=== PATIENT | male | born 1990 | race African-American/Black ===

== ENCOUNTER 2021-04-20 01:15 | Inpatient (IN) | payer OTHER ==
[~2021-04-20] VITALS: Ht 170.2 cm; Wt 98.0 kg
[2021-04-20] VITALS (39 sets, daily range): BP systolic 59–137; BP diastolic 40–80
--- NOTE | 2021-04-20 02:07 | NUR ---
admit from [facility]... patient found down at [facility] for an unknown amount of time on cold floor. Narcan given. patient became agitated for EMS- versed given.. blood gas done in ER- see results- replacing bicarb. one arm and leg are shackled- kerlex wrap applied then shackles over it. Yvette
--- NOTE | 2021-04-20 02:32 | NUR ---
admit from [facility]. patient found down on cold floor at custodial center. EMS called narcan given, thenb versed due to patient becoming aggressive. transferred to [facility]. see labs.. bicarb given and transferred to [place]. upon arrival patient still unresponsive, moving all over bed. one arm and leg wrapped in kerlex are shackled to bed. guards at BS. Dr Vicente called at and 229. no answer-- for admit orders. Addendum: 04/20/21 at 237 by BHARATH ROBLEDO RN unable to complete admission. patient is unresponsive Addendum: 04/20/21 at 0541 by BHARATH ROBLEDO RN cont to call Dr Vicente q 30 mins for orders. At 529 Was able to speak and receive orders updated Dr Vicente on Patients condition. his rapid breathing and unresponsive.
[2021-04-20] MEDS ORDERED: SODIUM BICARBONATE VIAL 100 MEQ in IV DEXTROSE 5% 1,000 ML IV SCH (03:30)
[2021-04-20] MEDS ORDERED: IV NORMAL SALINE 1000ML BAG 1,000 ML IV ONE ×2 (05:45→09:00)
[2021-04-20] MEDS: SODIUM BICARBONATE VIAL 150 MEQ in IV DEXTROSE 5% 1,000 ML IV SCH ×7 (06:02→22:54)
[2021-04-20 06:21] LABS: BASE EXCESS ABG -15 mmol/L (-3-3); CORRECTED PH ABG 7.42; CORRECTED PO2 ABG 126 mmHg; HCO3 ABG 6 mmol/L (21-28); SAT O2 ABG 98 % (92-99)
[2021-04-20 06:22] LABS: CORRECTED PCO2 ABG < 10 mmHg
[2021-04-20 06:23] LABS: FIO2 ABG 32; PCO2 ABG 10 mmHg (35-46); PO2 ABG 134 mmHg (85-108)
[2021-04-20 07:30] LABS: HEMATOCRIT 41.9 % (39.0-53.0); HEMOGLOBIN 13.3 g/dL (13.0-17.5); RED BLOOD COUNT 4.54 x10^6/uL (4.30-5.70); WHITE BLOOD COUNT 16.8 x10^3/uL (4.0-11.0)
[2021-04-20 07:44] LABS: CALCIUM 8.7 mg/dL (8.5-10.1); GFR 29.7
[2021-04-20] MEDS ORDERED: SODIUM BICARB ADULT 8.4% 50 MEQ/50 ML DISP.SYRIN. ONE (07:47)
[2021-04-20] MEDS ORDERED: ETOMIDATE 20 MG/10 ML VIAL. IV ONE ×3 (07:49→08:00)
[2021-04-20] MEDS ORDERED: ROCURONIUM 50 MG/5 ML VIAL. ONE ×2 (07:49→08:00)
[2021-04-20 07:51] LABS: POTASSIUM 6.3 mmol/L (3.5-5.1)
[2021-04-20] MEDS ORDERED: ATROPINE 0.5 MG/5 ML DISP.SYRINGE. IV PRN (08:00)
[2021-04-20] MEDS ORDERED: POLYVINYL ALCOHOL 1.4% OPHTH SOLUTION 15ML BOTTLE. OU PRN (08:00)
[2021-04-20] MEDS ORDERED: SODIUM BICARB ADULT 8.4% 50 MEQ/50 ML DISP.SYRIN. IV ONE ×2 (08:00→15:15)
[2021-04-20] MEDS ORDERED: IV NORMAL SALINE 500ML BAG 500 ML IV PRN (08:00)
[2021-04-20] MEDS ORDERED: PROPOFOL 100 ML IV PRN (08:00)
[2021-04-20] MEDS ORDERED: MIDAZOLAM HCL/PF 5 MG/5 ML VIAL. IVP PRN (08:00)
[2021-04-20] MEDS ORDERED: DEXTROSE 50% 25 GM / 50ML DISP.SYRIN. IV ONE ×2 (08:07→08:15)
[2021-04-20] MEDS: NOREPINEPHRINE VIAL 8 MG in IV DEXTROSE 5% 250 ML IV PRN ×3 (08:27→18:06)
--- NOTE | 2021-04-20 08:43 | PDOC2 ---
NEUROLOGY CONSULT Date of Service DOS: DATE: 04/20/21 TIME: 08:35 Reason for Consult Reason for Consult: Altered mental status Referring Physician Referring Physician: Dr. Franz Source Source: Chart review (Including group home medical record) History of Present Illness History of Present Illness The patient is a 30-year-old male inmate from [facility] who is in the custody of [employer]. He came to the [facility] emergency department last night with altered mental status. Reportedly he used drugs twice earlier, guard suspect this was K2. He was found down, very agitated, with altered state of consciousness. He was given Versed and Narcan with no change. In the emergency department he was hyperventilating and tachycardic. EKG showed atrial fibrillation. He was found to have metabolic acidosis, hypothermia, acute renal failure, lactic acidosis, and elevated INR. He was transferred here and remains agitated and unresponsive. He is about to be intubated. Past Medical History Pulmonary: Asthma Musculoskeletal: Osteoarthritis, Other (Mandible fracture) Past Surgical History Past Surgical History: No pertinent history Family History Family History: Other (Unobtainable) Social History Social History Prisoner Current Medications Current Medications Current Medications Sodium Bicarbonate 100 meq/Dextrose 1,100 ml @ 60 mls/hr [id number] IV ; Start 04/20/21 at 03:30; Stop 04/20/21 at 05:54; Status DC Diltiazem HCl 125 mg/Sodium Chloride 125 ml @ 5 mls/hr CONT PRN IV PER PROTOCOL; Start 04/20/21 at 03:30 Sodium Chloride 1,000 ml @ 1,000 mls/hr 1X ONCE IV Last administered on 04/20/21at 05:45; Start 04/20/21 at 05:45; Stop 04/20/21 at 06:44; Status DC Sodium Bicarbonate 150 meq/Dextrose 1,150 ml @ 125 mls/hr [id number] IV Last administered on 04/20/21at 06:02; Start 04/20/21 at 06:00 Sodium Bicarbonate (Sodium Bicarb Adult 8.4% Syr) 50 meq STK-MED ONCE .ROUTE ; Start 04/20/21 at 07:47; Stop 04/20/21 at 07:47; Status DC Rocuronium [place] (Zemuron) 50 mg STK-MED ONCE .ROUTE ; Start 04/20/21 at 07:49; Stop 04/20/21 at 07:49; Status DC Sodium Bicarbonate (Sodium Bicarb Adult 8.4% Syr) 100 meq 1X ONCE IV Last administered on 04/20/21at 08:09; Start 04/20/21 at 08:00; Stop 04/20/21 at 08:01; Status DC Etomidate (Amidate) 20 mg STK-MED ONCE IV ; Start 04/20/21 at 07:49; Stop 04/20/21 at 07:50; Status DC Etomidate (Amidate) 20 mg STK-MED ONCE IV ; Start 04/20/21 at 07:54; Stop 04/20/21 at 07:54; Status DC Fentanyl Citrate 30 ml @ 2.5 mls/hr CONT PRN IV SEE PROTOCOL; Start 04/20/21 at 08:00 Midazolam HCl 100 ml @ 1 mls/hr CONT PRN IV SEE PROTOCOL; Start 04/20/21 at 08:00 Propofol 100 ml @ 2.865 mls/ hr CONT PRN IV PER PROTOCOL; Start 04/20/21 at 08:00 Glycerin/ Hypromellose/ Polyethylene (Artificial Tears) 1 drop PRN Q1HR PRN OU DRY EYE; Start 04/20/21 at 08:00 Midazolam HCl (Versed) 5 mg PRN 1X PRN IVP VENT INDUCTION; Start 04/20/21 at 08:00; Stop 04/21/21 at 07:59 Sodium Chloride 500 ml @ 500 mls/hr 1X PRN PRN IV SEE COMMENTS; Start 04/20/21 at 08:00 Atropine Sulfate (ATROPINE 0.5mg SYRINGE) 0.5 mg PRN Q5MIN PRN IV SEE COMMENTS; Start 04/20/21 at 08:00 Norepinephrine Bitartrate 8 mg/ Dextrose 258 ml @ 18.479 mls/ hr CONT PRN IV PER PROTOCOL Last administered on 04/20/21at 08:27; Start 04/20/21 at 08:00 Dextrose (Dextrose 50%-Water Syringe) 25 gm 1X ONCE IV Last administered on 04/20/21at 08:09; Start 04/20/21 at 08:15; Stop 04/20/21 at 08:16; Status DC Dextrose (Dextrose 50%-Water Syringe) 25 gm STK-MED ONCE IV ; Start 04/20/21 at 08:07; Stop 04/20/21 at 08:08; Status DC Allergies Allergies: Coded Allergies: No Known Drug Allergies (Unverified , 04/20/21) ROS Review of System Unobtainable Physical Exam Physical Examination General: Well-developed, well-nourished, black male, in respiratory distress HEENT: Normocephalic andatraumatic. Temporal arteriespulsatile and nontender. Neck: Supple without bruit, no meningismus Musculoskeletal: Stability:see neurologic. Gait exam:see neurologic. Tone:see neurologic.Strength:see neurologic. Neurological: Mental Status:Unresponsive to voice or pain, agitated. Cranial Nerves:Pupils dilated, minimal reactivity, extraocular movements areintact. There is no facial asymmetry. All other cranial related problems are negative except as mentioned before.Reflexes:2+ and symmetric with flexor plantar responses. Motor:Moves all extremities. Coordination and gait:Not cooperative. Sensory:Not cooperative. Vitals VITALS Vital Signs Date Time Temp Pulse Resp B/P (MAP) Pulse Ox O2 Delivery O2 Flow Rate FiO2 04/20/21 06:00 96.1 106 30 88/50 95 Nasal Cannula 3.0 96.1 Labs Labs Laboratory Tests Test 04/20/21 05:55 04/20/21 06:00 04/20/21 08:33 White Blood Count 16.8 x10^3/uL (4.0-11.0) Red Blood Count 4.54 x10^6/uL (4.30-5.70) Hemoglobin 13.3 g/dL (13.0-17.5) Hematocrit 41.9 % (39.0-53.0) Mean Corpuscular Volume 92 fL (79-100) Mean Corpuscular Hemoglobin 29 pg (25-35) Mean Corpuscular Hemoglobin Concent 32 g/dL (31-37) Red Cell Distribution Width 15.0 % (11.5-14.5) Platelet Count 197 x10^3/uL (140-400) Sodium Level 141 mmol/L (136-145) Potassium Level 6.3 mmol/L (3.5-5.1) Chloride Level 102 mmol/L (98-107) Carbon Dioxide Level 6 mmol/L (21-32) Anion Gap 33 (6-14) Blood Urea Nitrogen 28 mg/dL (8-26) Creatinine 3.0 mg/dL (0.7-1.3) Estimated GFR (Cockcroft-Gault) 29.7 Glucose Level 50 mg/dL (70-99) Calcium Level 8.7 mg/dL (8.5-10.1) O2 Saturation 98 % (92-99) Arterial Blood pH 7.41 (7.35-7.45) Arterial Blood pH (Temp corrected) 7.42 Arterial Blood pCO2 at Patient Temp 10 mmHg (35-46) Arterial Blood pCO2 (Temp correct) < 10 mmHg Arterial Blood pO2 at Patient Temp 134 mmHg (85-108) Arterial Blood pO2 (Temp corrected) 126 mmHg Arterial Blood HCO3 6 mmol/L (21-28) Arterial Blood Base Excess -15 mmol/L (-3-3) FiO2 32 Glucose (Fingerstick) 111 mg/dL (70-99) Laboratory Tests Test 04/20/21 05:55 04/20/21 06:00 04/20/21 08:33 White Blood Count 16.8 x10^3/uL (4.0-11.0) Red Blood Count 4.54 x10^6/uL (4.30-5.70) Hemoglobin 13.3 g/dL (13.0-17.5) Hematocrit 41.9 % (39.0-53.0) Mean Corpuscular Volume 92 fL (79-100) Mean Corpuscular Hemoglobin 29 pg (25-35) Mean Corpuscular Hemoglobin Concent 32 g/dL (31-37) Red Cell Distribution Width 15.0 % (11.5-14.5) Platelet Count 197 x10^3/uL (140-400) Sodium Level 141 mmol/L (136-145) Potassium Level 6.3 mmol/L (3.5-5.1) Chloride Level 102 mmol/L (98-107) Carbon Dioxide Level 6 mmol/L (21-32) Anion Gap 33 (6-14) Blood Urea Nitrogen 28 mg/dL (8-26) Creatinine 3.0 mg/dL (0.7-1.3) Estimated GFR (Cockcroft-Gault) 29.7 Glucose Level 50 mg/dL (70-99) Calcium Level 8.7 mg/dL (8.5-10.1) O2 Saturation 98 % (92-99) Arterial Blood pH 7.41 (7.35-7.45) Arterial Blood pH (Temp corrected) 7.42 Arterial Blood pCO2 at Patient Temp 10 mmHg (35-46) Arterial Blood pCO2 (Temp correct) < 10 mmHg Arterial Blood pO2 at Patient Temp 134 mmHg (85-108) Arterial Blood pO2 (Temp corrected) 126 mmHg Arterial Blood HCO3 6 mmol/L (21-28) Arterial Blood Base Excess -15 mmol/L (-3-3) FiO2 32 Glucose (Fingerstick) 111 mg/dL (70-99) Images Images [facility], last night: CT HEAD INDICATION: found down at [facility], Alter Mental Status COMPARISON: None Available. Exposure: One or more of the following individualized dose reduction techniques were utilized for this examination: 1. Automated exposure control 2. Adjustment of the mA and/or kV according to patient size 3. Use of iterative reconstruction technique TECHNIQUE: 5 mm contiguous axial images were obtained from the skull base to the vertex in both bone and soft tissue algorithm. FINDINGS: Examination limited due to motion artifact. Grossly No evidence of acute intracranial hemorrhage. No extra-axial fluid collections. No mass effect or midline shift. Ventricular size is appropriate. Basal cisterns are patent. No fractures identified.Jhaveri-white differentiation is preserved.Globes and orbits are within normal limits. Paranasal sinuses and mastoid air cells are clear. CT CERVICAL SPINE INDICATION: found down at [facility], Alter Mental Status COMPARISON: None Available. Technique: 2.5 mm contiguous axial images were obtained from the skull base through the cervicothoracic junction in both bone and soft tissue algorithm. Additional sagittal and coronal reconstructions were also performed. FINDINGS: Examination limited due to mild motion artifact. Vertebral body height and alignment are maintained. Cervical lordosis is preserved. The lateral masses of C1 are aligned upon C2. No fractures identified. The bony canal is patent throughout. No significant degenerative changes are identified. The paraspinous soft tissues are unremarkable. Visualized intracranial contents are unremarkable. Lung apices are clear. IMPRESSION: 1. Examination limited due to motion artifact. Grossly no acute intracranial findings. 2. No acute fracture of the cervical spine. Assessment/Plan Assessment/Plan Impression: Toxic encephalopathy, consistent with K2 ingestion. Atrial fibrillation, compensated, metabolic acidosis, hypothermia, acute renal failure, lactic acidosis, and elevated INR Recommendations: Intubation Supportive care Treat medical issues Thank you for letting me help with the patient's care. ELISHA BLANCO MD Apr 20, 2021 08:43
--- NOTE | 2021-04-20 09:01 | RAD ---
Single view of the chest. 04/20/2021 8:31 AM Indication: Reason: Endotracheal and oral gastric tube placement. Comparison: None Findings: There is an endotracheal tube. The tip projects approximately 3 cm above the jeff. There is an enteric tube extending below the diaphragm projecting over the expected region of the breasts s tomach. No pneumothorax, pleural effusion, or focal infiltrate is seen. Heart size is normal. No acut e osseous abnormality is identified. Dilated loops of small bowel are seen in the central abdomen no gross pneumoperitoneum is identified. Some distal bowel gas appears to be present. Bladder catheter appears to be present. IMPRESSION: 1. Endotracheal tube 3 cm above the jeff 2. Enteric tube with tip projecting over the stomach 3. Dilated loops of small bowel central abdomen and pattern possibly relating to an ileus or partial small bowel obstruction. Consider radiographic follow-up as clinically indicated Electronically signed by: Cezar Us MD (04/20/2021 8:58 AM) [id number]
[2021-04-20 09:08] LABS: BASE EXCESS COOX -15 mmol/L (-3-3); HCO3 COOX 13 mmol/L (21-28); METHEMOGLOBIN 0.8 % (0.0-1.9); OXYHEMOGLOBIN 98.2 %; PCO2 COOX 34 mmHg (35-46); PO2 COOX > 503 mmHg (85-108); SAT O2 COOX 99 % (92-99)
[2021-04-20] MEDS: PANTOPRAZOLE SODIUM IV DRIP 80 MG in IV NORMAL SALINE 100ML 100 ML IV SCH ×2 (09:16→17:41)
[2021-04-20] MEDS: MIDAZOLAM 100mg/100ml NS BAG 100 ML IV PRN ×2 (09:17→15:11)
--- NOTE | 2021-04-20 09:30 | NUR ---
rapid titration note - Levophed started at 0825 at .1mcg/kg/min, due to patients declining status, rapid titration was performed, max dosage titrated to was 0.25 mcg/kg/min which stabilized patients BP and remains there. time from between 0825 and 0900.
[2021-04-20 10:18] LABS: BASO % 0 % (0-3); EOS # 0.1 x10^3/uL (0.0-0.7); EOS % 1 % (0-3); HEMATOCRIT 38.7 % (39.0-53.0); HEMOGLOBIN 12.7 g/dL (13.0-17.5); LYMPH % 6 % (24-48); MEAN CORPUSCULAR HEMOGLOBIN 30 pg (25-35); MEAN CORPUSCULAR HGB CONC 33 g/dL (31-37); MEAN CORPUSCULAR VOLUME 91 fL (79-100); MONO # 1.4 x10^3/uL (0.0-1.1); MONO % 9 % (0-9); NEUT % 84 % (31-73); PLATELET COUNT 217 x10^3/uL (140-400); RED BLOOD COUNT 4.27 x10^6/uL (4.30-5.70); RED CELL DISTRIBUTION WIDTH 14.6 % (11.5-14.5); WHITE BLOOD COUNT 15.6 x10^3/uL (4.0-11.0)
--- NOTE | 2021-04-20 10:19 | PDOC2 ---
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 04/20/21 1018: CONSULT Date of Consult Date of Consult DATE: 04/20/21 TIME: 10:12 Reason for Consult Reason for Consult: SBO Referring Physician Referring Physician: Dr Franz Identification/Chief Complaint Chief Complaint AMS Source Source: Caregiver, Chart review History of Present Illness Reason for Visit: Inmate, seen at [facility], [facility], possible drug use(mention of K2) Was found agitated, AMS Intubated, OG in place, bp stable on pressor support Was treated in ER with versed, narcan--significant lab abnormalities, a fib Past Medical History Pulmonary: Asthma Musculoskeletal: Osteoarthritis, Other (Mandible fracture) Past Surgical History Past Surgical History: No pertinent history Family History Family History: Family History Unknown Social History Social History can not obtain Current Medications Current Medications Current Medications Sodium Bicarbonate 100 meq/Dextrose 1,100 ml @ 60 mls/hr [id number] IV ; Start 04/20/21 at 03:30; Stop 04/20/21 at 05:54; Status DC Diltiazem HCl 125 mg/Sodium Chloride 125 ml @ 5 mls/hr CONT PRN IV PER PROTOCOL; Start 04/20/21 at 03:30 Sodium Chloride 1,000 ml @ 1,000 mls/hr 1X ONCE IV Last administered on 04/20/21at 05:45; Start 04/20/21 at 05:45; Stop 04/20/21 at 06:44; Status DC Sodium Bicarbonate 150 meq/Dextrose 1,150 ml @ 125 mls/hr Q9H12M IV Last administered on 04/20/21at 06:02; Start 04/20/21 at 06:00 Sodium Bicarbonate (Sodium Bicarb Adult 8.4% Syr) 50 meq STK-MED ONCE .ROUTE ; Start 04/20/21 at 07:47; Stop 04/20/21 at 07:47; Status DC Rocuronium [place] (Zemuron) 50 mg STK-MED ONCE .ROUTE ; Start 04/20/21 at 07:49; Stop 04/20/21 at 07:49; Status DC Sodium Bicarbonate (Sodium Bicarb Adult 8.4% Syr) 100 meq 1X ONCE IV Last administered on 04/20/21at 08:09; Start 04/20/21 at 08:00; Stop 04/20/21 at 08:01; Status DC Etomidate (Amidate) 20 mg STK-MED ONCE IV ; Start 04/20/21 at 07:49; Stop 04/20/21 at 07:50; Status DC Etomidate (Amidate) 20 mg STK-MED ONCE IV ; Start 04/20/21 at 07:54; Stop 04/20/21 at 07:54; Status DC Fentanyl Citrate 30 ml @ 2.5 mls/hr CONT PRN IV SEE PROTOCOL; Start 04/20/21 at 08:00 Midazolam HCl 100 ml @ 1 mls/hr CONT PRN IV SEE PROTOCOL Last administered on 04/20/21at 09:17; Start 04/20/21 at 08:00 Propofol 100 ml @ 2.865 mls/ hr CONT PRN IV PER PROTOCOL; Start 04/20/21 at 08:00 Glycerin/ Hypromellose/ Polyethylene (Artificial Tears) 1 drop PRN Q1HR PRN OU DRY EYE; Start 04/20/21 at 08:00 Midazolam HCl (Versed) 5 mg PRN 1X PRN IVP VENT INDUCTION; Start 04/20/21 at 08:00; Stop 04/21/21 at 07:59 Sodium Chloride 500 ml @ 500 mls/hr 1X PRN PRN IV SEE COMMENTS; Start 04/20/21 at 08:00 Atropine Sulfate (ATROPINE 0.5mg SYRINGE) 0.5 mg PRN Q5MIN PRN IV SEE COMMENTS; Start 04/20/21 at 08:00 Norepinephrine Bitartrate 8 mg/ Dextrose 258 ml @ 18.479 mls/ hr CONT PRN IV PER PROTOCOL Last administered on 04/20/21at 08:27; Start 04/20/21 at 08:00 Dextrose (Dextrose 50%-Water Syringe) 25 gm 1X ONCE IV Last administered on 04/20/21at 08:09; Start 04/20/21 at 08:15; Stop 04/20/21 at 08:16; Status DC Dextrose (Dextrose 50%-Water Syringe) 25 gm STK-MED ONCE IV ; Start 04/20/21 at 08:07; Stop 04/20/21 at 08:08; Status DC Pantoprazole Sodium 80 mg/ Sodium Chloride 100 ml @ 10 mls/hr Q10H IV Last a dministered on 04/20/21at 09:16; Start 04/20/21 at 09:00 Sodium Chloride 1,000 ml @ 1,000 mls/hr 1X ONCE IV Last administered on 04/20/21at 08:54; Start 04/20/21 at 09:00; Stop 04/20/21 at 09:59; Status DC Allergies Allergies: Coded Allergies: No Known Drug Allergies (Unverified , 04/20/21) ROS Review of System can not obtain Physical Exam General: Other (eyes open on exam) HEENT: Other (og in place) Lungs: Other (mech vent) Heart: Other (tachy) Abdomen: Other (soft, distended ) Extremities: Normal pulses Skin: No breakdown Vitals VITALS Vital Signs Date Time Temp Pulse Resp B/P (MAP) Pulse Ox O2 Delivery O2 Flow Rate FiO2 04/20/21 09:00 98.2 114 18 82/40 100 Ventilator 98.2 04/20/21 08:00 3.0 Labs Labs Laboratory Tests Test 04/20/21 05:55 04/20/21 06:00 04/20/21 08:33 04/20/21 09:00 White Blood Count 16.8 x10^3/uL (4.0-11.0) Red Blood Count 4.54 x10^6/uL (4.30-5.70) Hemoglobin 13.3 g/dL (13.0-17.5) Hematocrit 41.9 % (39.0-53.0) Mean Corpuscular Volume 92 fL (79-100) Mean Corpuscular Hemoglobin 29 pg (25-35) Mean Corpuscular Hemoglobin Concent 32 g/dL (31-37) Red Cell Distribution Width 15.0 % (11.5-14.5) Platelet Count 197 x10^3/uL (140-400) Sodium Level 141 mmol/L (136-145) Potassium Level 6.3 mmol/L (3.5-5.1) Chloride Level 102 mmol/L (98-107) Carbon Dioxide Level 6 mmol/L (21-32) Anion Gap 33 (6-14) Blood Urea Nitrogen 28 mg/dL (8-26) Creatinine 3.0 mg/dL (0.7-1.3) Estimated GFR (Cockcroft-Gault) 29.7 Glucose Level 50 mg/dL (70-99) Calcium Level 8.7 mg/dL (8.5-10.1) O2 Saturation 98 % (92-99) 99 % (92-99) Arterial Blood pH 7.41 (7.35-7.45) 7.19 (7.35-7.45) Arterial Blood pH (Temp corrected) 7.42 Arterial Blood pCO2 at Patient Temp 10 mmHg (35-46) 34 mmHg (35-46) Arterial Blood pCO2 (Temp correct) < 10 mmHg Arterial Blood pO2 at Patient Temp 134 mmHg (85-108) > 503 mmHg (85-108) Arterial Blood pO2 (Temp corrected) 126 mmHg Arterial Blood HCO3 6 mmol/L (21-28) 13 mmol/L (21-28) Arterial Blood Base Excess -15 mmol/L (-3-3) -15 mmol/L (-3-3) FiO2 32 100 Glucose (Fingerstick) 111 mg/dL (70-99) Oxyhemoglobin 98.2 % Methemoglobin 0.8 % (0.0-1.9) Carbon Monoxide, Quantitative 0.2 % (0.0-1.9) Test 04/20/21 10:01 Glucose (Fingerstick) 104 mg/dL (70-99) Laboratory Tests Test 04/20/21 05:55 04/20/21 06:00 04/20/21 08:33 04/20/21 09:00 White Blood Count 16.8 x10^3/uL (4.0-11.0) Red Blood Count 4.54 x10^6/uL (4.30-5.70) Hemoglobin 13.3 g/dL (13.0-17.5) Hematocrit 41.9 % (39.0-53.0) Mean Corpuscular Volume 92 fL (79-100) Mean Corpuscular Hemoglobin 29 pg (25-35) Mean Corpuscular Hemoglobin Concent 32 g/dL (31-37) Red Cell Distribution Width 15.0 % (11.5-14.5) Platelet Count 197 x10^3/uL (140-400) Sodium Level 141 mmol/L (136-145) Potassium Level 6.3 mmol/L (3.5-5.1) Chloride Level 102 mmol/L (98-107) Carbon Dioxide Level 6 mmol/L (21-32) Anion Gap 33 (6-14) Blood Urea Nitrogen 28 mg/dL (8-26) Creatinine 3.0 mg/dL (0.7-1.3) Estimated GFR (Cockcroft-Gault) 29.7 Glucose Level 50 mg/dL (70-99) Calcium Level 8.7 mg/dL (8.5-10.1) O2 Saturation 98 % (92-99) 99 % (92-99) Arterial Blood pH 7.41 (7.35-7.45) 7.19 (7.35-7.45) Arterial Blood pH (Temp corrected) 7.42 Arterial Blood pCO2 at Patient Temp 10 mmHg (35-46) 34 mmHg (35-46) Arterial Blood pCO2 (Temp correct) < 10 mmHg Arterial Blood pO2 at Patient Temp 134 mmHg (85-108) > 503 mmHg (85-108) Arterial Blood pO2 (Temp corrected) 126 mmHg Arterial Blood HCO3 6 mmol/L (21-28) 13 mmol/L (21-28) Arterial Blood Base Excess -15 mmol/L (-3-3) -15 mmol/L (-3-3) FiO2 32 100 Glucose (Fingerstick) 111 mg/dL (70-99) Oxyhemoglobin 98.2 % Methemoglobin 0.8 % (0.0-1.9) Carbon Monoxide, Quantitative 0.2 % (0.0-1.9) Test 04/20/21 10:01 Glucose (Fingerstick) 104 mg/dL (70-99) Assessment/Plan Assessment/Plan encephalopathy renal failure, acute-cr >3 coagulopathy , INR>2 lactic acidosis->20 CT SBO vs ileus--no free air, og in place--no acute surgical indications at this time, medical management FU repeat labs MARCY HENDRICKS MD 04/20/21 1707: CONSULT Assessment/Plan Assessment/Plan Pt seen and examined. Agree with Baljeet Holt's note Pt non responsive, multiple cardioversions abd soft, Nd, NTTP etiology of sepsis unknown, but abd source seems unlikely regardless, pt prohibitive surgical candidate cont supportive care. Thanks for consult! CORIMIGELTAMMIE Whitlock APRN Apr 20, 2021 10:18 MARCY HENDRICKS MD Apr 20, 2021 17:07
[2021-04-20 10:30] LABS: PROTHROMBIN TIME PATIENT 22.4 SEC (11.7-14.0)
[2021-04-20 10:33] LABS: ALBUMIN 3.2 g/dL (3.4-5.0); ALBUMIN/GLOBULIN RATIO 1.4 (1.0-1.7); CALCIUM 7.9 mg/dL (8.5-10.1); CREATININE 3.4 mg/dL (0.7-1.3); GFR 25.7; TOTAL BILIRUBIN 0.7 mg/dL (0.2-1.0); TOTAL PROTEIN 5.5 g/dL (6.4-8.2)
[2021-04-20 10:34] LABS: D-DIMER 0.54 ug/mlFEU (0.00-0.50)
--- NOTE | 2021-04-20 10:57 | PDOC ---
PULMONARY PROGRESS NOTES DATE: 04/20/21 TIME: 10:57 Vitals Vital Signs Date Time Temp Pulse Resp B/P (MAP) Pulse Ox O2 Delivery O2 Flow Rate FiO2 04/20/21 10:17 31 98 Ventilator 04/20/21 09:00 98.2 114 82/40 98.2 04/20/21 08:00 3.0 Labs Laboratory Tests Test 04/20/21 05:55 04/20/21 06:00 04/20/21 08:33 04/20/21 09:00 White Blood Count 16.8 x10^3/uL (4.0-11.0) Red Blood Count 4.54 x10^6/uL (4.30-5.70) Hemoglobin 13.3 g/dL (13.0-17.5) Hematocrit 41.9 % (39.0-53.0) Mean Corpuscular Volume 92 fL (79-100) Mean Corpuscular Hemoglobin 29 pg (25-35) Mean Corpuscular Hemoglobin Concent 32 g/dL (31-37) Red Cell Distribution Width 15.0 % (11.5-14.5) Platelet Count 197 x10^3/uL (140-400) Sodium Level 141 mmol/L (136-145) Potassium Level 6.3 mmol/L (3.5-5.1) Chloride Level 102 mmol/L (98-107) Carbon Dioxide Level 6 mmol/L (21-32) Anion Gap 33 (6-14) Blood Urea Nitrogen 28 mg/dL (8-26) Creatinine 3.0 mg/dL (0.7-1.3) Estimated GFR (Cockcroft-Gault) 29.7 Glucose Level 50 mg/dL (70-99) Calcium Level 8.7 mg/dL (8.5-10.1) O2 Saturation 98 % (92-99) 99 % (92-99) Arterial Blood pH 7.41 (7.35-7.45) 7.19 (7.35-7.45) Arterial Blood pH (Temp corrected) 7.42 Arterial Blood pCO2 at Patient Temp 10 mmHg (35-46) 34 mmHg (35-46) Arterial Blood pCO2 (Temp correct) < 10 mmHg Arterial Blood pO2 at Patient Temp 134 mmHg (85-108) > 503 mmHg (85-108) Arterial Blood pO2 (Temp corrected) 126 mmHg Arterial Blood HCO3 6 mmol/L (21-28) 13 mmol/L (21-28) Arterial Blood Base Excess -15 mmol/L (-3-3) -15 mmol/L (-3-3) FiO2 32 100 Glucose (Fingerstick) 111 mg/dL (70-99) Oxyhemoglobin 98.2 % Methemoglobin 0.8 % (0.0-1.9) Carbon Monoxide, Quantitative 0.2 % (0.0-1.9) Test 04/20/21 09:55 04/20/21 10:01 White Blood Count 15.6 x10^3/uL (4.0-11.0) Red Blood Count 4.27 x10^6/uL (4.30-5.70) Hemoglobin 12.7 g/dL (13.0-17.5) Hematocrit 38.7 % (39.0-53.0) Mean Corpuscular Volume 91 fL (79-100) Mean Corpuscular Hemoglobin 30 pg (25-35) Mean Corpuscular Hemoglobin Concent 33 g/dL (31-37) Red Cell Distribution Width 14.6 % (11.5-14.5) Platelet Count 217 x10^3/uL (140-400) Neutrophils (%) (Auto) 84 % (31-73) Lymphocytes (%) (Auto) 6 % (24-48) Monocytes (%) (Auto) 9 % (0-9) Eosinophils (%) (Auto) 1 % (0-3) Basophils (%) (Auto) 0 % (0-3) Neutrophils # (Auto) 13.0 x10^3/uL (1.8-7.7) Lymphocytes # (Auto) 1.0 x10^3/uL (1.0-4.8) Monocytes # (Auto) 1.4 x10^3/uL (0.0-1.1) Eosinophils # (Auto) 0.1 x10^3/uL (0.0-0.7) Basophils # (Auto) 0.0 x10^3/uL (0.0-0.2) Prothrombin Time 22.4 SEC (11.7-14.0) Prothromb Time International Ratio 2.0 (0.8-1.1) Activated Partial Thromboplast Time 27 SEC (24-38) Fibrinogen 204 mg/dL (200-440) D-Dimer (Farida) 0.54 ug/mlFEU (0.00-0.50) Sodium Level 146 mmol/L (136-145) Potassium Level 6.0 mmol/L (3.5-5.1) Chloride Level 105 mmol/L (98-107) Carbon Dioxide Level 15 mmol/L (21-32) Anion Gap 26 (6-14) Blood Urea Nitrogen 30 mg/dL (8-26) Creatinine 3.4 mg/dL (0.7-1.3) Estimated GFR (Cockcroft-Gault) 25.7 BUN/Creatinine Ratio 9 (6-20) Glucose Level 95 mg/dL (70-99) Calcium Level 7.9 mg/dL (8.5-10.1) Total Bilirubin 0.7 mg/dL (0.2-1.0) Aspartate Amino Transf (AST/SGOT) 170 U/L (15-37) Alanine Aminotransferase (ALT/SGPT) 61 U/L (16-63) Alkaline Phosphatase 51 U/L (46-116) Total Protein 5.5 g/dL (6.4-8.2) Albumin 3.2 g/dL (3.4-5.0) Albumin/Globulin Ratio 1.4 (1.0-1.7) Ethyl Alcohol Level < 10 mg/dL (0-10) Glucose (Fingerstick) 104 mg/dL (70-99) Laboratory Tests Test 04/20/21 05:55 04/20/21 06:00 04/20/21 08:33 04/20/21 09:00 White Blood Count 16.8 x10^3/uL (4.0-11.0) Red Blood Count 4.54 x10^6/uL (4.30-5.70) Hemoglobin 13.3 g/dL (13.0-17.5) Hematocrit 41.9 % (39.0-53.0) Mean Corpuscular Volume 92 fL (79-100) Mean Corpuscular Hemoglobin 29 pg (25-35) Mean Corpuscular Hemoglobin Concent 32 g/dL (31-37) Red Cell Distribution Width 15.0 % (11.5-14.5) Platelet Count 197 x10^3/uL (140-400) Sodium Level 141 mmol/L (136-145) Potassium Level 6.3 mmol/L (3.5-5.1) Chloride Level 102 mmol/L (98-107) Carbon Dioxide Level 6 mmol/L (21-32) Anion Gap 33 (6-14) Blood Urea Nitrogen 28 mg/dL (8-26) Creatinine 3.0 mg/dL (0.7-1.3) Estimated GFR (Cockcroft-Gault) 29.7 Glucose Level 50 mg/dL (70-99) Calcium Level 8.7 mg/dL (8.5-10.1) O2 Saturation 98 % (92-99) 99 % (92-99) Arterial Blood pH 7.41 (7.35-7.45) 7.19 (7.35-7.45) Arterial Blood pH (Temp corrected) 7.42 Arterial Blood pCO2 at Patient Temp 10 mmHg (35-46) 34 mmHg (35-46) Arterial Blood pCO2 (Temp correct) < 10 mmHg Arterial Blood pO2 at Patient Temp 134 mmHg (85-108) > 503 mmHg (85-108) Arterial Blood pO2 (Temp corrected) 126 mmHg Arterial Blood HCO3 6 mmol/L (21-28) 13 mmol/L (21-28) Arterial Blood Base Excess -15 mmol/L (-3-3) -15 mmol/L (-3-3) FiO2 32 100 Glucose (Fingerstick) 111 mg/dL (70-99) Oxyhemoglobin 98.2 % Methemoglobin 0.8 % (0.0-1.9) Carbon Monoxide, Quantitative 0.2 % (0.0-1.9) Test 04/20/21 09:55 04/20/21 10:01 White Blood Count 15.6 x10^3/uL (4.0-11.0) Red Blood Count 4.27 x10^6/uL (4.30-5.70) Hemoglobin 12.7 g/dL (13.0-17.5) Hematocrit 38.7 % (39.0-53.0) Mean Corpuscular Volume 91 fL (79-100) Mean Corpuscular Hemoglobin 30 pg (25-35) Mean Corpuscular Hemoglobin Concent 33 g/dL (31-37) Red Cell Distribution Width 14.6 % (11.5-14.5) Platelet Count 217 x10^3/uL (140-400) Neutrophils (%) (Auto) 84 % (31-73) Lymphocytes (%) (Auto) 6 % (24-48) Monocytes (%) (Auto) 9 % (0-9) Eosinophils (%) (Auto) 1 % (0-3) Basophils (%) (Auto) 0 % (0-3) Neutrophils # (Auto) 13.0 x10^3/uL (1.8-7.7) Lymphocytes # (Auto) 1.0 x10^3/uL (1.0-4.8) Monocytes # (Auto) 1.4 x10^3/uL (0.0-1.1) Eosinophils # (Auto) 0.1 x10^3/uL (0.0-0.7) Basophils # (Auto) 0.0 x10^3/uL (0.0-0.2) Prothrombin Time 22.4 SEC (11.7-14.0) Prothromb Time International Ratio 2.0 (0.8-1.1) Activated Partial Thromboplast Time 27 SEC (24-38) Fibrinogen 204 mg/dL (200-440) D-Dimer (Farida) 0.54 ug/mlFEU (0.00-0.50) Sodium Level 146 mmol/L (136-145) Potassium Level 6.0 mmol/L (3.5-5.1) Chloride Level 105 mmol/L (98-107) Carbon Dioxide Level 15 mmol/L (21-32) Anion Gap 26 (6-14) Blood Urea Nitrogen 30 mg/dL (8-26) Creatinine 3.4 mg/dL (0.7-1.3) Estimated GFR (Cockcroft-Gault) 25.7 BUN/Creatinine Ratio 9 (6-20) Glucose Level 95 mg/dL (70-99) Calcium Level 7.9 mg/dL (8.5-10.1) Total Bilirubin 0.7 mg/dL (0.2-1.0) Aspartate Amino Transf (AST/SGOT) 170 U/L (15-37) Alanine Aminotransferase (ALT/SGPT) 61 U/L (16-63) Alkaline Phosphatase 51 U/L (46-116) Total Protein 5.5 g/dL (6.4-8.2) Albumin 3.2 g/dL (3.4-5.0) Albumin/Globulin Ratio 1.4 (1.0-1.7) Ethyl Alcohol Level < 10 mg/dL (0-10) Glucose (Fingerstick) 104 mg/dL (70-99) Impression . Full note dictated Acute respiratory failure multifactorial Check urine drug screen JA SPEARS MD Apr 20, 2021 10:57
[2021-04-20] MEDS: VECURONIUM BOLUS 10 MG VIAL. IV PRN ×2 (11:07→15:34)
--- NOTE | 2021-04-20 11:26 | CONS ---
DATE OF CONSULTATION: 04/20/2021 ATTENDING PHYSICIAN: Dr. Yusuf. REASON FOR CONSULTATION: The patient is seen in pulmonary consultation at the request of Dr. Yusuf for respiratory failure, mechanical ventilation, management. HISTORY OF PRESENT ILLNESS: The patient is a 30-year-old male that is currently under the custody of [facility] [employer]. He was under their custody. Apparently, he had agitation, altered mental status. It is suspected that he was utilizing K2, which is synthetic marijuana. He was given Narcan and Versed in the Emergency Department. That helped a bit, but not all that much. The patient had an EKG revealing AFib. He had CT neck and head, which revealed no acute findings. The patient has been seen by Dr. Orantes for toxic encephalopathy consistent with K2 ingestion. He has had severe metabolic acidosis, hypothermia, acute renal failure, lactic acidosis. Earlier this morning, he was having difficulty controlling his airway, he was intubated. He is currently intubated. He is on assist control, tidal volume of 500, rate of 20, 5 of PEEP. He is on a bicarbonate drip for severe metabolic acidosis. Nephrology has been consulted. I reviewed his current chest x-ray, which revealed left lower lobe infiltrate with small effusion. I reviewed his labs. His latest arterial blood gas, the patient is oxygenating well. He does have a severe metabolic acidosis, his pH was 7.19, PaCO2 of 34, pO2 of 503, bicarbonate was 13. PAST MEDICAL HISTORY: Documented as asthma and osteoarthritis. PAST SURGICAL HISTORY: No recent major surgeries. FAMILY HISTORY: Unknown. SOCIAL HISTORY: He is currently in [facility]. CURRENT MEDICATIONS: List was reviewed. PHYSICAL EXAMINATION: VITAL SIGNS: Noted. He is hypotensive. He is not in sync with the ventilator. HEENT: Eyes, the sclerae were nonicteric. Orally placed endotracheal tube. CHEST: Full expansion. No subcutaneous emphysema. LUNGS: Adequate flow. CARDIOVASCULAR: Regular rate and rhythm with S1, S2, no S3. ABDOMEN: Soft, slightly distended. EXTREMITIES: No clubbing, cyanosis. Minimal edema. NEUROLOGIC: The patient was sedated. LABORATORY DATA: White count was 15,000, hemoglobin and hematocrit of 12 and 38. Electrolytes were noted to be deranged. Potassium was elevated. BUN was elevated. Creatinine was elevated. AST was elevated. Albumin was low. IMPRESSION: 1. Acute respiratory failure, multifactorial, mainly related to severe metabolic acidosis and renal failure. 2. Metabolic acidosis related to renal failure and toxic ingestion of K2. 3. Severe metabolic acidosis per Nephrology. 4. Toxic encephalopathy. 5. Abnormal x-ray, compatible with left lower lobe infiltrate, possible pneumonia. 6. Acute renal failure. 7. Lactic acidosis. 8. Atrial fibrillation. 9. Protein malnutrition, present upon admission. PLAN: 1. We will increase minute ventilation, p.r.n. Norcuron, continue sodium bicarbonate drip. 2. Follow Nephrology input. 3. Empiric antibiotics. 4. DVT prophylaxis. 5. IV fluids. 6. Cardizem drip for atrial fibrillation. Overall, prognosis is poor, hopefully the patient will improve and survive this unfortunate disaster. CANDELARIA DR: Geovanny TID: [id number]
--- NOTE | 2021-04-20 12:07 | PDOC2 ---
CONSULT Date of Consult Date of Consult DATE: 04/20/21 TIME: 11:59 Reason for Consult Reason for Consult: SERGIO/ ATN Referring Physician Referring Physician: GRACE Identification/Chief Complaint Chief Complaint Abdominal pain nausea vomiting Source Source: Chart review History of Present Illness Reason for Visit: Patient is a 30-year-old [place] inmate in the custody of the [facility]. Apparently had demonstrated some agitation and altered mental status. Reportedly was found down. It is suspected that he was using K2 at the facility. He was taken to [facility] ER where drug screen is reportedly negative. He is now intubated and in the ICU where I am unable to get much in terms of history from him.. Is currently sedated intubated on the vent and on pressors. He is felt to have a small bowel obstruction has been evaluated by GI and general surgery. It is also reported that the patient had an EKG revealing AFib. The patient has been seen by Dr. Orantes for toxic encephalopathy consistent with K2 ingestion. He is now noted to have severe wide anion gap metabolic acidosis with a lactic acid of 10.4. He was initially hypothermic but is now normothermic. He was also noted to have acute renal failure with a creatinine of 3.4 at presentation. Reportedly earlier this morning, he was having difficulty controlling his airway, he was intubated. He appears to be in some amount of respiratory distress with some amount of accessory muscle use for breathing. His potassium is also noted to be 6.3 with a bicarb of 6 and a gap of 33. Post intubation ABG 7.1 8/34/553 with a bicarb of 13. He remains on pressors at this time Past Medical History Pulmonary: Asthma Musculoskeletal: Osteoarthritis, Other (Mandible fracture) Past Surgical History Past Surgical History: No pertinent history Family History Family History: Family History Unknown Social History Social History Currently in the custody of the [facility] Current Medications Current Medications Current Medications Sodium Bicarbonate 100 meq/Dextrose 1,100 ml @ 60 mls/hr [id number] IV ; Start 04/20/21 at 03:30; Stop 04/20/21 at 05:54; Status DC Diltiazem HCl 125 mg/Sodium Chloride 125 ml @ 5 mls/hr CONT PRN IV PER PROTOCOL; Start 04/20/21 at 03:30 Sodium Chloride 1,000 ml @ 1,000 mls/hr 1X ONCE IV Last administered on 04/20/21at 05:45; Start 04/20/21 at 05:45; Stop 04/20/21 at 06:44; Status DC Sodium Bicarbonate 150 meq/Dextrose 1,150 ml @ 125 mls/hr [id number] IV Last administered on 04/20/21at 06:02; Start 04/20/21 at 06:00 Sodium Bicarbonate (Sodium Bicarb Adult 8.4% Syr) 50 meq STK-MED ONCE .ROUTE ; Start 04/20/21 at 07:47; Stop 04/20/21 at 07:47; Status DC Rocuronium [place]trim (Zemuron) 50 mg STK-MED ONCE .ROUTE ; Start 04/20/21 at 07:49; Stop 04/20/21 at 07:49; Status DC Sodium Bicarbonate (Sodium Bicarb Adult 8.4% Syr) 100 meq 1X ONCE IV Last administered on 04/20/21at 08:09; Start 04/20/21 at 08:00; Stop 04/20/21 at 08:01; Status DC Etomidate (Amidate) 20 mg STK-MED ONCE IV ; Start 04/20/21 at 07:49; Stop 04/20/21 at 07:50; Status DC Etomidate (Amidate) 20 mg STK-MED ONCE IV ; Start 04/20/21 at 07:54; Stop 04/20/21 at 07:54; Status DC Fentanyl Citrate 30 ml @ 2.5 mls/hr CONT PRN IV SEE PROTOCOL Last administered on 04/20/21at 10:17; Start 04/20/21 at 08:00 Midazolam HCl 100 ml @ 1 mls/hr CONT PRN IV SEE PROTOCOL Last administered on 04/20/21at 09:17; Start 04/20/21 at 08:00 Propofol 100 ml @ 2.865 mls/ hr CONT PRN IV PER PROTOCOL; Start 04/20/21 at 08:00 Glycerin/ Hypromellose/ Polyethylene (Artificial Tears) 1 drop PRN Q1HR PRN OU DRY EYE; Start 04/20/21 at 08:00 Midazolam HCl (Versed) 5 mg PRN 1X PRN IVP VENT INDUCTION; Start 04/20/21 at 08:00; Stop 04/21/21 at 07:59 Sodium Chloride 500 ml @ 500 mls/hr 1X PRN PRN IV SEE COMMENTS; Start 04/20/21 at 08:00 Atropine Sulfate (ATROPINE 0.5mg SYRINGE) 0.5 mg PRN Q5MIN PRN IV SEE COMMENTS; Start 04/20/21 at 08:00 Norepinephrine Bitartrate 8 mg/ Dextrose 258 ml @ 18.479 mls/ hr CONT PRN IV PER PROTOCOL Last administered on 04/20/21at 08:27; Start 04/20/21 at 08:00 Dextrose (Dextrose 50%-Water Syringe) 25 gm 1X ONCE IV Last administered on 04/20/21at 08:09; Start 04/20/21 at 08:15; Stop 04/20/21 at 08:16; Status DC Dextrose (Dextrose 50%-Water Syringe) 25 gm STK-MED ONCE IV ; Start 04/20/21 at 08:07; Stop 04/20/21 at 08:08; Status DC Pantoprazole Sodium 80 mg/ Sodium Chloride 100 ml @ 10 mls/hr Q10H IV Last administered on 04/20/21at 09:16; Start 04/20/21 at 09:00 Sodium Chloride 1,000 ml @ 1,000 mls/hr 1X ONCE IV Last administered on 04/20/21at 08:54; Start 04/20/21 at 09:00; Stop 04/20/21 at 09:59; Status DC Vecuronium [place]trim (Norcuron Bolus) 6 mg PRN Q6HRS PRN IV VENTILATOR COMPLIANCE Last administered on 04/20/21at 11:07; Start 04/20/21 at 11:00 Allergies Allergies: Coded Allergies: No Known Drug Allergies (Unverified , 04/20/21) ROS Review of System Unable to be obtained from the patient due to sedated intubated state Physical Exam Physical Exam General Appearance: Currently sedated intubated on the ventilator in moderate amount of respiratory distress Eyes: Sclera anicteric conjunctiva Normal EN: No EN Drainage Mucous Memb. Moist while intubated Neck: no JVD no JVP Supple no Thyromegaly CVS: S1 S2 no Murmur No Gallop No Rub no Edema Resp: no Rales no Rhonchi no Acc. Muscle use GI: BS hypoactive NO Bruit Non Tender Non Distended : no CVA tenderness; no Suprapubic Tenderness SKIN: no Rashes Breast Exam deferred, multiple tattoos Mu.Sk: Adequate passive ROM no Muscle Atrophy Heme: Unable to palpate Obvious LAD no palpable splenomegaly NEURO: Unable to assess currently while on the vent and sedated intubated Psych: Unable to assess currently while sedated intubated on the vent Vital Signs Vital Signs Date Time Temp Pulse Resp B/P (MAP) Pulse Ox O2 Delivery O2 Flow Rate FiO2 04/20/21 10:17 31 98 Ventilator 04/20/21 09:00 98.2 114 82/40 98.2 04/20/21 08:00 3.0 Assessment & Plan SERGIO/ATN with minimal urine output and severe acidosis: We will proceed with hemodialysis/CRRT depending on hemodynamics. Hypotension we will begin with CRRT correct acidosis and reevaluate for ongoing need for dialysis. Fluid boluses can be administered Possible septic shock: Unclear source or etiology. Defer to other physicians to ascertain precise etiology. Suspect intra-abdominal source Severe metabolic acidosis with elevated lactic acid: Suspect due to intra- abdominal pathology. Will begin CRRT to correct acidosis. If he is felt to be a surgical candidate CRRT can be discontinued for surgical intervention. Hyperkalemia: Presumably due to severe metabolic acidosis. Anticipate correction with correction of metabolic acidosis. IV bicarb has been administered. IV bicarb has been reordered also pending initiation of CRRT Critical care time spent at bedside as well as coordinating dialysis line placement, CRRT orders, reviewing records from outside facility: 32 minutes 1145 to 12:17 Labs Labs Laboratory Tests Test 04/20/21 05:55 04/20/21 06:00 04/20/21 08:33 04/20/21 09:00 White Blood Count 16.8 x10^3/uL (4.0-11.0) Red Blood Count 4.54 x10^6/uL (4.30-5.70) Hemoglobin 13.3 g/dL (13.0-17.5) Hematocrit 41.9 % (39.0-53.0) Mean Corpuscular Volume 92 fL (79-100) Mean Corpuscular Hemoglobin 29 pg (25-35) Mean Corpuscular Hemoglobin Concent 32 g/dL (31-37) Red Cell Distribution Width 15.0 % (11.5-14.5) Platelet Count 197 x10^3/uL (140-400) Sodium Level 141 mmol/L (136-145) Potassium Level 6.3 mmol/L (3.5-5.1) Chloride Level 102 mmol/L (98-107) Carbon Dioxide Level 6 mmol/L (21-32) Anion Gap 33 (6-14) Blood Urea Nitrogen 28 mg/dL (8-26) Creatinine 3.0 mg/dL (0.7-1.3) Estimated GFR (Cockcroft-Gault) 29.7 Glucose Level 50 mg/dL (70-99) Calcium Level 8.7 mg/dL (8.5-10.1) O2 Saturation 98 % (92-99) 99 % (92-99) Arterial Blood pH 7.41 (7.35-7.45) 7.19 (7.35-7.45) Arterial Blood pH (Temp corrected) 7.42 Arterial Blood pCO2 at Patient Temp 10 mmHg (35-46) 34 mmHg (35-46) Arterial Blood pCO2 (Temp correct) < 10 mmHg Arterial Blood pO2 at Patient Temp 134 mmHg (85-108) > 503 mmHg (85-108) Arterial Blood pO2 (Temp corrected) 126 mmHg Arterial Blood HCO3 6 mmol/L (21-28) 13 mmol/L (21-28) Arterial Blood Base Excess -15 mmol/L (-3-3) -15 mmol/L (-3-3) FiO2 32 100 Glucose (Fingerstick) 111 mg/dL (70-99) Oxyhemoglobin 98.2 % Methemoglobin 0.8 % (0.0-1.9) Carbon Monoxide, Quantitative 0.2 % (0.0-1.9) Test 04/20/21 09:55 04/20/21 10:01 White Blood Count 15.6 x10^3/uL (4.0-11.0) Red Blood Count 4.27 x10^6/uL (4.30-5.70) Hemoglobin 12.7 g/dL (13.0-17.5) Hematocrit 38.7 % (39.0-53.0) Mean Corpuscular Volume 91 fL (79-100) Mean Corpuscular Hemoglobin 30 pg (25-35) Mean Corpuscular Hemoglobin Concent 33 g/dL (31-37) Red Cell Distribution Width 14.6 % (11.5-14.5) Platelet Count 217 x10^3/uL (140-400) Neutrophils (%) (Auto) 84 % (31-73) Lymphocytes (%) (Auto) 6 % (24-48) Monocytes (%) (Auto) 9 % (0-9) Eosinophils (%) (Auto) 1 % (0-3) Basophils (%) (Auto) 0 % (0-3) Neutrophils # (Auto) 13.0 x10^3/uL (1.8-7.7) Lymphocytes # (Auto) 1.0 x10^3/uL (1.0-4.8) Monocytes # (Auto) 1.4 x10^3/uL (0.0-1.1) Eosinophils # (Auto) 0.1 x10^3/uL (0.0-0.7) Basophils # (Auto) 0.0 x10^3/uL (0.0-0.2) Prothrombin Time 22.4 SEC (11.7-14.0) Prothromb Time International Ratio 2.0 (0.8-1.1) Activated Partial Thromboplast Time 27 SEC (24-38) Fibrinogen 204 mg/dL (200-440) D-Dimer (Farida) 0.54 ug/mlFEU (0.00-0.50) Sodium Level 146 mmol/L (136-145) Potassium Level 6.0 mmol/L (3.5-5.1) Chloride Level 105 mmol/L (98-107) Carbon Dioxide Level 15 mmol/L (21-32) Anion Gap 26 (6-14) Blood Urea Nitrogen 30 mg/dL (8-26) Creatinine 3.4 mg/dL (0.7-1.3) Estimated GFR (Cockcroft-Gault) 25.7 BUN/Creatinine Ratio 9 (6-20) Glucose Level 95 mg/dL (70-99) Lactic Acid Level 10.4 mmol/L (0.4-2.0) Calcium Level 7.9 mg/dL (8.5-10.1) Total Bilirubin 0.7 mg/dL (0.2-1.0) Aspartate Amino Transf (AST/SGOT) 170 U/L (15-37) Alanine Aminotransferase (ALT/SGPT) 61 U/L (16-63) Alkaline Phosphatase 51 U/L (46-116) Total Protein 5.5 g/dL (6.4-8.2) Albumin 3.2 g/dL (3.4-5.0) Albumin/Globulin Ratio 1.4 (1.0-1.7) Ethyl Alcohol Level < 10 mg/dL (0-10) Acetone Level Neg (NEG) Glucose (Fingerstick) 104 mg/dL (70-99) Laboratory Tests Test 04/20/21 05:55 04/20/21 06:00 04/20/21 08:33 04/20/21 09:00 White Blood Count 16.8 x10^3/uL (4.0-11.0) Red Blood Count 4.54 x10^6/uL (4.30-5.70) Hemoglobin 13.3 g/dL (13.0-17.5) Hematocrit 41.9 % (39.0-53.0) Mean Corpuscular Volume 92 fL (79-100) Mean Corpuscular Hemoglobin 29 pg (25-35) Mean Corpuscular Hemoglobin Concent 32 g/dL (31-37) Red Cell Distribution Width 15.0 % (11.5-14.5) Platelet Count 197 x10^3/uL (140-400) Sodium Level 141 mmol/L (136-145) Potassium Level 6.3 mmol/L (3.5-5.1) Chloride Level 102 mmol/L (98-107) Carbon Dioxide Level 6 mmol/L (21-32) Anion Gap 33 (6-14) Blood Urea Nitrogen 28 mg/dL (8-26) Creatinine 3.0 mg/dL (0.7-1.3) Estimated GFR (Cockcroft-Gault) 29.7 Glucose Level 50 mg/dL (70-99) Calcium Level 8.7 mg/dL (8.5-10.1) O2 Saturation 98 % (92-99) 99 % (92-99) Arterial Blood pH 7.41 (7.35-7.45) 7.19 (7.35-7.45) Arterial Blood pH (Temp corrected) 7.42 Arterial Blood pCO2 at Patient Temp 10 mmHg (35-46) 34 mmHg (35-46) Arterial Blood pCO2 (Temp correct) < 10 mmHg Arterial Blood pO2 at Patient Temp 134 mmHg (85-108) > 503 mmHg (85-108) Arterial Blood pO2 (Temp corrected) 126 mmHg Arterial Blood HCO3 6 mmol/L (21-28) 13 mmol/L (21-28) Arterial Blood Base Excess -15 mmol/L (-3-3) -15 mmol/L (-3-3) FiO2 32 100 Glucose (Fingerstick) 111 mg/dL (70-99) Oxyhemoglobin 98.2 % Methemoglobin 0.8 % (0.0-1.9) Carbon Monoxide, Quantitative 0.2 % (0.0-1.9) Test 04/20/21 09:55 04/20/21 10:01 White Blood Count 15.6 x10^3/uL (4.0-11.0) Red Blood Count 4.27 x10^6/uL (4.30-5.70) Hemoglobin 12.7 g/dL (13.0-17.5) Hematocrit 38.7 % (39.0-53.0) Mean Corpuscular Volume 91 fL (79-100) Mean Corpuscular Hemoglobin 30 pg (25-35) Mean Corpuscular Hemoglobin Concent 33 g/dL (31-37) Red Cell Distribution Width 14.6 % (11.5-14.5) Platelet Count 217 x10^3/uL (140-400) Neutrophils (%) (Auto) 84 % (31-73) Lymphocytes (%) (Auto) 6 % (24-48) Monocytes (%) (Auto) 9 % (0-9) Eosinophils (%) (Auto) 1 % (0-3) Basophils (%) (Auto) 0 % (0-3) Neutrophils # (Auto) 13.0 x10^3/uL (1.8-7.7) Lymphocytes # (Auto) 1.0 x10^3/uL (1.0-4.8) Monocytes # (Auto) 1.4 x10^3/uL (0.0-1.1) Eosinophils # (Auto) 0.1 x10^3/uL (0.0-0.7) Basophils # (Auto) 0.0 x10^3/uL (0.0-0.2) Prothrombin Time 22.4 SEC (11.7-14.0) Prothromb Time International Ratio 2.0 (0.8-1.1) Activated Partial Thromboplast Time 27 SEC (24-38) Fibrinogen 204 mg/dL (200-440) D-Dimer (Farida) 0.54 ug/mlFEU (0.00-0.50) Sodium Level 146 mmol/L (136-145) Potassium Level 6.0 mmol/L (3.5-5.1) Chloride Level 105 mmol/L (98-107) Carbon Dioxide Level 15 mmol/L (21-32) Anion Gap 26 (6-14) Blood Urea Nitrogen 30 mg/dL (8-26) Creatinine 3.4 mg/dL (0.7-1.3) Estimated GFR (Cockcroft-Gault) 25.7 BUN/Creatinine Ratio 9 (6-20) Glucose Level 95 mg/dL (70-99) Lactic Acid Level 10.4 mmol/L (0.4-2.0) Calcium Level 7.9 mg/dL (8.5-10.1) Total Bilirubin 0.7 mg/dL (0.2-1.0) Aspartate Amino Transf (AST/SGOT) 170 U/L (15-37) Alanine Aminotransferase (ALT/SGPT) 61 U/L (16-63) Alkaline Phosphatase 51 U/L (46-116) Total Protein 5.5 g/dL (6.4-8.2) Albumin 3.2 g/dL (3.4-5.0) Albumin/Globulin Ratio 1.4 (1.0-1.7) Ethyl Alcohol Level < 10 mg/dL (0-10) Acetone Level Neg (NEG) Glucose (Fingerstick) 104 mg/dL (70-99) Review All relevant outside records, renal labs, imaging studies, telemetry/EKG's were reviewed. Images Images Chest x-ray report: IMPRESSION: 1. Endotracheal tube 3 cm above the jeff 2. Enteric tube with tip projecting over the stomach 3. Dilated loops of small bowel central abdomen and pattern possibly relating to an ileus or partial small bowel obstruction. Consider radiographic follow-up as clinically indicated PAUL CASTELLANOS MD Apr 20, 2021 12:07
[2021-04-20 12:10] LABS: % BANDS 13 % (0-9); % LYMPHS 8 % (24-48); % MONOS 7 % (0-10); % SEGS 72 % (35-66); PLT ESTIMATE ADEQUATE (ADEQUATE)
[2021-04-20] MEDS: SODIUM BICARB ADULT 8.4% 50 MEQ/50 ML DISP.SYRIN. IV SCH ×2 (12:40→13:32)
[2021-04-20] MEDS ORDERED: LIDOCAINE WITH 8.4% SOD BICARB 3 ML DISP.SYRIN. ONE (13:02)
[2021-04-20] MEDS ORDERED: LIDOCAINE WITH 8.4% SOD BICARB 3 ML DISP.SYRIN. INJ ONE (13:45)
--- NOTE | 2021-04-20 14:16 | RAD ---
EXAMINATION: Chest radiograph. VIEWS: 2 images single AP view of the chest COMPARISON: Earlier same day INDICATION:30 years, Male, HD and CVC line placement. FINDINGS: Interval placement of right IJ dialysis catheter with tip terminating in the area of the right atrium . Additional central venous line is also seen with the distal tip difficult to evaluate given the ove rlying hemodialysis catheter appears to terminate in the region of the brachiocephalic SVC confluence or SVC. Endotracheal tube and nasogastric supine x-rays of the jeff. Enteric tube extends below th e diaphragm over the expected region of the stomach. Stable cardiomediastinal silhouette. New hazy bibasilar opacities. No pleural effusion or pneumothora x. No acute osseous process. IMPRESSION: 1. Interval placement of right IJ hemodialysis and central venous catheters appear to be in stable po sitions. No postprocedural pneumothorax. 2. Other support tubes and lines are in stable position. 3. New hazy bibasilar opacities favoring subsegmental atelectasis and/or infiltrate. Electronically signed by: Zay Molina DO (04/20/2021 2:13 PM) [facility]
--- NOTE | 2021-04-20 14:50 | RAD ---
Procedure: 1. Ultrasound-guided placement of a right internal jugular temporary dialysis catheter 2. Ultrasound-guided placement of right internal jugular triple-lumen central venous catheter Sterility: All elements of maximal sterile barrier technique including the use of a cap, mask, steril e gown, sterile gloves, large sterile sheet, appropriate hand hygiene, and 2% chlorhexidine for cutan eous antisepsis (or acceptable alternative antiseptic per current guidelines) were followed for this procedure. Consent: The procedures were performed under a medical necessity consent under emergent conditions. Technique and Findings: The patient was prepped and draped in the usual sterile fashion. Ultrasound interrogation of the right neck revealed patency and compressibility of the right internal jugular vein. A 21-gauge micropuncture was then used to gain access to this vein under ultrasound g uidance. A hard copy ultrasound image was recorded.A guidewire was advanced centrally over which, fo llowing dilatation, temporary dialysis catheter was placed. The new catheter was found to flush an d aspirate normally. The catheter was secured in place. Sterile dressings were applied. No immediate complications were identified. Then in a slightly more cephalad location, A 21-gauge micropuncture was then used to gain access to t he right internal jugular vein. A hard copy ultrasound image was recorded.A guidewire was advanced ce ntrally over which, following dilatation, a a triple-lumen central venous catheter was placed. The n ew catheter was found to flush and aspirate normally. The catheter was secured in place. Sterile dres sings were applied. No immediate complications were identified. IMPRESSION: 1. Placement of a right internal jugular triple-lumen central venous catheter with ultrasound guidanc e 2. Placement of a right internal jugular temporary dialysis catheter with ultrasound guidance Electronically signed by: Cezar Us MD (04/20/2021 2:48 PM) [id number]
[2021-04-20] MEDS: CALCIUM CHLORIDE IV SCH ×6 (15:00→20:07)
[2021-04-20] MEDS: [UNRECOGNIZED DRUG - OTHER] IV SCH ×4 (15:00→18:15)
[2021-04-20] MEDS: POTASSIUM CHLORIDE IV SCH ×6 (15:00→20:07)
[2021-04-20] MEDS: MAGNESIUM SULFATE IV SCH ×6 (15:00→20:07)
[2021-04-20] MEDS: fentaNYL HIGH DOSE PCA 55 ML IV PRN (15:09)
[2021-04-20] MEDS: AMIODARONE 450 MG in IV DEXTROSE 5% 250 ML IV PRN (15:45)
[2021-04-20] MEDS ORDERED: DEXTROSE 5% IV ONE (16:00)
[2021-04-20] MEDS ORDERED: AMIODARONE IV ONE (16:00)
[2021-04-20] MEDS ORDERED: ADENOSINE 6 MG/2 ML VIAL. IV ONE ×4 (16:10→16:30)
[2021-04-20] MEDS: NORCURON - VECURONIUM 50 MG in IV NORMAL SALINE 50ML 50 ML IV PRN (16:37)
[2021-04-20 18:12] LABS: HEMOGLOBIN 12.6 g/dL (13.0-17.5); RED BLOOD COUNT 4.13 x10^6/uL (4.30-5.70); RED CELL DISTRIBUTION WIDTH 14.4 % (11.5-14.5); WHITE BLOOD COUNT 9.9 x10^3/uL (4.0-11.0)
--- NOTE | 2021-04-20 18:17 | CARD ---
MR#: [id number] Date of Study: 04/20/2021 Ordering Physician: PAUL CASTELLANOS, Referring Physician: PAUL CASTELLANOS, Tech: Jessica Vasquez [facility] APPROVED REPORT EXAM: Two-dimensional and M-mode echocardiogram with Doppler and color Doppler. Other Information Quality : Technically LimitedHR: 130bpm Rhythm : Tachycardia INDICATION RISK FACTORS Obesity 2D DIMENSIONS Left Atrium(2D)2.3 (1.6-4.0cm)IVSd1.1 (0.7-1.1cm) Aortic Root(2D)3.5 (2.0-3.7cm)LVDd4.3 (3.9-5.9cm) LVOT Diameter2.7 (1.8-2.4cm)PWd1.2 (0.7-1.1cm) LVDs2.2 (2.5-4.0cm)FS (%) 47.8 % SV66.3 ml LEFT VENTRICLE The left ventricle is normal size. There is borderline concentric left ventricular hypertrophy. The l eft ventricular systolic function is normal and the ejection fraction is within normal range. LV eje ction fraction is 60 to 65%. There is normal LV segmental wall motion. RIGHT VENTRICLE The right ventricle is normal size. There is normal right ventricular wall thickness. The right ventr icular systolic function is normal. ATRIA The left atrium size is normal. The right atrium size is normal. The interatrial septum is intact wit h no evidence for an atrial septal defect or patent foramen ovale as noted on 2-D or Doppler imaging. AORTIC VALVE The aortic valve is normal in structure and function. Doppler and Color Flow revealed no significant aortic regurgitation. There is no significant aortic valvular stenosis. MITRAL VALVE The mitral valve is normal in structure and function. There is no evidence of mitral valve prolapse. There is no mitral valve stenosis. Doppler and Color Flow revealed trace mitral valve regurgitation. TRICUSPID VALVE The tricuspid valve is normal in structure and function. Doppler and Color Flow revealed no tricuspid valve regurgitation noted. There is no tricuspid valve stenosis. GREAT VESSELS The aortic root is normal in size. The ascending aorta is normal in size. The IVC is normal in size a nd collapses >50% with inspiration. PERICARDIAL EFFUSION There is no evidence of significant pericardial effusion. Critical Notification Critical Value: No <Conclusion> The left ventricle is normal size. The left ventricular systolic function is normal and the ejection fraction is within normal range. LV ejection fraction is 60 to 65%. There is borderline concentric left ventricular hypertrophy. Doppler and Color Flow revealed no significant aortic regurgitation. There is no significant aortic valvular stenosis. Doppler and Color Flow revealed trace mitral valve regurgitation. Doppler and Color Flow revealed no tricuspid valve regurgitation noted. Signed by : Maykel Taylor MD Electronically Approved : 04/20/2021 18:16:50
[2021-04-20 18:20] LABS: PROTHROMBIN TIME PATIENT 26.2 SEC (11.7-14.0)
[2021-04-20 18:23] LABS: ALBUMIN/GLOBULIN RATIO 1.4 (1.0-1.7); CALCIUM 7.3 mg/dL (8.5-10.1); CREATININE 2.2 mg/dL (0.7-1.3); GFR 42.5; MAGNESIUM 3.8 mg/dL (1.8-2.4); PHOSPHORUS 2.3 mg/dL (2.6-4.7); POTASSIUM 3.7 mmol/L (3.5-5.1); TOTAL BILIRUBIN 0.7 mg/dL (0.2-1.0); TOTAL PROTEIN 5.2 g/dL (6.4-8.2)
[2021-04-20] MEDS ORDERED: HEPARIN 25,000UTS/250ML PREMIX 250 ML IV PRN (19:15)
[2021-04-20] MEDS ORDERED: HEPARIN for IV BOLUS 10,000 UNIT/10 ML VIAL. IV PRN (19:15)
--- NOTE | 2021-04-20 19:33 | PDOC2 ---
CONSULT Date of Consult Date of Consult DATE: 04/20/21 TIME: 19:22 Reason for Consult Reason for Consult: Rapid atrial fibrillation, VT Referring Physician Referring Physician: Dr. Franz Identification/Chief Complaint Chief Complaint The patient was found down at a correctional facility Source Source: Caregiver, Chart review History of Present Illness Reason for Visit: The patient is a 30-year-old male who has been in a correctional institution. He reportedly was found down and minimally responsive last evening and brought to [facility]. The patient had not been able to give a clear history but that was consideration the possible use of K2. The patient was then tr ansferred to [facility]. Earlier this morning the patient had progressive deterioration and required intubation. He also required pressor support. He was found to be in acute renal failure as well as possibly having a possible small bowel obstruction. He has been seen by the renal service and placed on CRRT. He is also been seen by the GI/surgery services for possible small bowel obstruction. Later in the the afternoon the patient has had recurrent episodes of a series of rapid rhythms with severe decrease in blood pressure. 1 rhythm appears to be VT while others were a narrow complex extreme tachycardia. He has received a total of 6 cardioversions to this time. He has been placed on amiodarone and appears to be improving on antiarrhythmics as well as his renal treatment. He is followed by the pulmonary, renal, GI and neurological services. Limited old history is available. Past Medical History Pulmonary: Asthma Musculoskeletal: Osteoarthritis, Other (Mandible fracture) Past Surgical History Past Surgical History: No pertinent history Family History Family History: Family History Unknown Current Medications Current Medications Current Medications Sodium Bicarbonate 100 meq/Dextrose 1,100 ml @ 60 mls/hr [id number] IV ; Start 04/20/21 at 03:30; Stop 04/20/21 at 05:54; Status DC Diltiazem HCl 125 mg/Sodium Chloride 125 ml @ 5 mls/hr CONT PRN IV PER PROTOCOL; Start 04/20/21 at 03:30 Sodium Chloride 1,000 ml @ 1,000 mls/hr 1X ONCE IV Last administered on 04/20/21at 05:45; Start 04/20/21 at 05:45; Stop 04/20/21 at 06:44; Status DC Sodium Bicarbonate 150 meq/Dextrose 1,150 ml @ 125 mls/hr Q9H12M IV Last administered on 04/20/21at 15:07; Start 04/20/21 at 06:00 Sodium Bicarbonate (Sodium Bicarb Adult 8.4% Syr) 50 meq STK-MED ONCE .ROUTE ; Start 04/20/21 at 07:47; Stop 04/20/21 at 07:47; Status DC Rocuronium Hatfield (Zemuron) 50 mg STK-MED ONCE .ROUTE ; Start 04/20/21 at 07:49; Stop 04/20/21 at 07:49; Status DC Sodium Bicarbonate (Sodium Bicarb Adult 8.4% Syr) 100 meq 1X ONCE IV Last administered on 04/20/21at 08:09; Start 04/20/21 at 08:00; Stop 04/20/21 at 08:01; Status DC Etomidate (Amidate) 20 mg STK-MED ONCE IV ; Start 04/20/21 at 07:49; Stop 04/20/21 at 07:50; Status DC Etomidate (Amidate) 20 mg STK-MED ONCE IV ; Start 04/20/21 at 07:54; Stop 04/20/21 at 07:54; Status DC Fentanyl Citrate 30 ml @ 2.5 mls/hr CONT PRN IV SEE PROTOCOL Last administered on 04/20/21at 10:17; Start 04/20/21 at 08:00; Stop 04/20/21 at 15:23; Status DC Midazolam HCl 100 ml @ 0 mls/hr CONT PRN IV SEE PROTOCOL Last administered on 04/20/21at 15:11; Start 04/20/21 at 08:00 Propofol 100 ml @ 2.865 mls/ hr CONT PRN IV PER PROTOCOL; Start 04/20/21 at 08:00 Glycerin/ Hypromellose/ Polyethylene (Artificial Tears) 1 drop PRN Q1HR PRN OU DRY EYE; Start 04/20/21 at 08:00 Midazolam HCl (Versed) 5 mg PRN 1X PRN IVP VENT INDUCTION; Start 04/20/21 at 08:00; Stop 04/21/21 at 07:59 Sodium Chloride 500 ml @ 500 mls/hr 1X PRN PRN IV SEE COMMENTS; Start 04/20/21 at 08:00 Atropine Sulfate (ATROPINE 0.5mg SYRINGE) 0.5 mg PRN Q5MIN PRN IV SEE COMMENTS; Start 04/20/21 at 08:00 Norepinephrine Bitartrate 8 mg/ Dextrose 258 ml @ 18.479 mls/ hr CONT PRN IV PER PROTOCOL Last administered on 04/20/21at 18:06; Start 04/20/21 at 08:00 Dextrose (Dextrose 50%-Water Syringe) 25 gm 1X ONCE IV Last administered on 04/20/21at 08:09; Start 04/20/21 at 08:15; Stop 04/20/21 at 08:16; Status DC Dextrose (Dextrose 50%-Water Syringe) 25 gm STK-MED ONCE IV ; Start 04/20/21 at 08:07; Stop 04/20/21 at 08:08; Status DC Pantoprazole Sodium 80 mg/ Sodium Chloride 100 ml @ 10 mls/hr Q10H IV Last administered on 04/20/21at 17:41; Start 04/20/21 at 09:00 Sodium Chloride 1,000 ml @ 1,000 mls/hr 1X ONCE IV Last administered on 04/20/21at 08:54; Start 04/20/21 at 09:00; Stop 04/20/21 at 09:59; Status DC Vecuronium Hatfield (Norcuron Bolus) 6 mg PRN Q6HRS PRN IV VENTILATOR COMPLIANCE Last administered on 04/20/21at 15:34; Start 04/20/21 at 11:00 Sodium Bicarbonate (Sodium Bicarb Adult 8.4% Syr) 100 meq Q2H IV Last administered on 04/20/21at 13:32; Start 04/20/21 at 13:00; Stop 04/20/21 at 15:01; Status DC Lidocaine HCl (Buffered Lidocaine 1%) 3 ml STK-MED ONCE .ROUTE ; Start 04/20/21 at 13:02; Stop 04/20/21 at 13:02; Status DC Lidocaine HCl (Buffered Lidocaine 1%) 6 ml 1X ONCE INJ Last administered on 04/20/21at 13:46; Start 04/20/21 at 13:45; Stop 04/20/21 at 13:46; Status DC Potassium Chloride 20 meq/ Magnesium Sulfate 15 meq/Calcium Chloride 5 meq/ Bicarbonate Dialysis Soln w/ out KCl 5,017.3214 ml @ 1,500 mls/hr Q3H21M IV Last administered on 04/20/21at 18:15; Start 04/20/21 at 15:00; Stop 04/20/21 at 19:13; Status DC Potassium Chloride 20 meq/ Magnesium Sulfate 15 meq/Calcium Chloride 5 meq/ Bicarbonate Dialysis Soln w/ out KCl 5,017.3214 ml @ 1,500 mls/hr Q3H21M IV Last administered on 04/20/21at 18:14; Start 04/20/21 at 15:00; Stop 04/20/21 at 19:13; Status DC Sodium Bicarbonate 150 meq/Dextrose 1,150 ml @ 500 mls/hr Q2H18M IV Last administered on 04/20/21at 17:09; Start 04/20/21 at 15:00 Fentanyl Citrate 55 ml @ 0 mls/hr CONT PRN IV SEE PROTOCOL Last administered on 04/20/21at 15:09; Start 04/20/21 at 14:15 Sodium Bicarbonate (Sodium Bicarb Adult 8.4% Syr) 100 meq 1X ONCE IV Last administered on 04/20/21at 15:10; Start 04/20/21 at 15:15; Stop 04/20/21 at 15:16; Status DC Amiodarone HCl 75 mg/Dextrose 101.5 ml @ 618 mls/hr 1X ONCE IV Last administered on 04/20/21at 15:44; Start 04/20/21 at 16:00; Stop 04/20/21 at 16:09; Status DC Amiodarone HCl 450 mg/Dextrose 259 ml @ 0 mls/hr CONT PRN IV SEE I/O RECORD Last administered on 04/20/21at 15:45; Start 04/20/21 at 15:30; Stop 04/21/21 at 15:30 Adenosine (Adenocard) 6 mg STK-MED ONCE IV ; Start 04/20/21 at 16:10; Stop 04/20/21 at 16:10; Status DC Adenosine (Adenocard) 6 mg STK-MED ONCE IV ; Start 04/20/21 at 16:15; Stop 04/20/21 at 16:16; Status DC Adenosine (Adenocard) 6 mg 1X ONCE IV Last administered on 04/20/21at 16:33; Start 04/20/21 at 16:30; Stop 04/20/21 at 16:31; Status DC Adenosine (Adenocard) 12 mg 1X ONCE IV Last administered on 04/20/21at 16:32; Start 04/20/21 at 16:30; Stop 04/20/21 at 16:31; Status DC Vecuronium [place]field 50 mg/ Sodium Chloride 50 ml @ 4.584 mls/ hr CONT PRN IV PER PROTOCOL Last administered on 04/20/21at 16:37; Start 04/20/21 at 16:30 Heparin Sodium/ Dextrose 250 ml @ 10 mls/hr CONT PRN IV PER PROTOCOL; Start 04/20/21 at 19:15 Heparin Sodium (Porcine) (Heparin Sodium) 2,400 unit PRN Q6HRS PRN IV FOR UFH LEVEL LESS THAN 0.2; Start 04/20/21 at 19:15 Potassium Chloride 20 meq/ Magnesium Sulfate 2.5 meq/Calcium Chloride 5 meq/ Bicarbonate Dialysis Soln w/ out KCl 5,014.1964 ml @ 1,500 mls/hr Q3H21M IV ; Start 04/20/21 at 21:00 Potassium Chloride 20 meq/ Magnesium Sulfate 2.5 meq/Calcium Chloride 5 meq/ Bicarbonate Dialysis Soln w/ out KCl 5,014.1964 ml @ 1,500 mls/hr Q3H21M IV ; Start 04/20/21 at 21:00 Allergies Allergies: Coded Allergies: No Known Drug Allergies (Unverified , 04/20/21) ROS Review of System The patient is intubated. Physical Exam General: Other (Intubated and sedated.) Lungs: Other (Decreased breath sounds.) Heart: Other (Irregularly irregular) Abdomen: Other (Significantly decreased bowel sounds.) Vitals VITALS Vital Signs Date Time Temp Pulse Resp B/P (MAP) Pulse Ox O2 Delivery O2 Flow Rate FiO2 04/20/21 18:00 97.0 122 30 118/68 100 Ventilator 97.0 04/20/21 08:00 3.0 Labs Labs Laboratory Tests Test 04/20/21 05:55 04/20/21 06:00 04/20/21 08:33 04/20/21 09:00 White Blood Count 16.8 x10^3/uL (4.0-11.0) Red Blood Count 4.54 x10^6/uL (4.30-5.70) Hemoglobin 13.3 g/dL (13.0-17.5) Hematocrit 41.9 % (39.0-53.0) Mean Corpuscular Volume 92 fL (79-100) Mean Corpuscular Hemoglobin 29 pg (25-35) Mean Corpuscular Hemoglobin Concent 32 g/dL (31-37) Red Cell Distribution Width 15.0 % (11.5-14.5) Platelet Count 197 x10^3/uL (140-400) Sodium Level 141 mmol/L (136-145) Potassium Level 6.3 mmol/L (3.5-5.1) Chloride Level 102 mmol/L (98-107) Carbon Dioxide Level 6 mmol/L (21-32) Anion Gap 33 (6-14) Blood Urea Nitrogen 28 mg/dL (8-26) Creatinine 3.0 mg/dL (0.7-1.3) Estimated GFR (Cockcroft-Gault) 29.7 Glucose Level 50 mg/dL (70-99) Calcium Level 8.7 mg/dL (8.5-10.1) O2 Saturation 98 % (92-99) 99 % (92-99) Arterial Blood pH 7.41 (7.35-7.45) 7.19 (7.35-7.45) Arterial Blood pH (Temp corrected) 7.42 Arterial Blood pCO2 at Patient Temp 10 mmHg (35-46) 34 mmHg (35-46) Arterial Blood pCO2 (Temp correct) < 10 mmHg Arterial Blood pO2 at Patient Temp 134 mmHg (85-108) > 503 mmHg (85-108) Arterial Blood pO2 (Temp corrected) 126 mmHg Arterial Blood HCO3 6 mmol/L (21-28) 13 mmol/L (21-28) Arterial Blood Base Excess -15 mmol/L (-3-3) -15 mmol/L (-3-3) FiO2 32 100 Glucose (Fingerstick) 111 mg/dL (70-99) Oxyhemoglobin 98.2 % Methemoglobin 0.8 % (0.0-1.9) Carbon Monoxide, Quantitative 0.2 % (0.0-1.9) Test 04/20/21 09:55 04/20/21 10:01 04/20/21 14:50 04/20/21 18:00 White Blood Count 15.6 x10^3/uL (4.0-11.0) 9.9 x10^3/uL (4.0-11.0) Red Blood Count 4.27 x10^6/uL (4.30-5.70) 4.13 x10^6/uL (4.30-5.70) Hemoglobin 12.7 g/dL (13.0-17.5) 12.6 g/dL (13.0-17.5) Hematocrit 38.7 % (39.0-53.0) 37.0 % (39.0-53.0) Mean Corpuscular Volume 91 fL (79-100) 90 fL (79-100) Mean Corpuscular Hemoglobin 30 pg (25-35) 31 pg (25-35) Mean Corpuscular Hemoglobin Concent 33 g/dL (31-37) 34 g/dL (31-37) Red Cell Distribution Width 14.6 % (11.5-14.5) 14.4 % (11.5-14.5) Platelet Count 217 x10^3/uL (140-400) 158 x10^3/uL (140-400) Neutrophils (%) (Auto) 84 % (31-73) Lymphocytes (%) (Auto) 6 % (24-48) Monocytes (%) (Auto) 9 % (0-9) Eosinophils (%) (Auto) 1 % (0-3) Basophils (%) (Auto) 0 % (0-3) Neutrophils # (Auto) 13.0 x10^3/uL (1.8-7.7) Lymphocytes # (Auto) 1.0 x10^3/uL (1.0-4.8) Monocytes # (Auto) 1.4 x10^3/uL (0.0-1.1) Eosinophils # (Auto) 0.1 x10^3/uL (0.0-0.7) Basophils # (Auto) 0.0 x10^3/uL (0.0-0.2) Segmented Neutrophils % 72 % (35-66) Band Neutrophils % 13 % (0-9) Lymphocytes % 8 % (24-48) Monocytes % 7 % (0-10) Platelet Estimate Adequate (ADEQUATE) Prothrombin Time 22.4 SEC (11.7-14.0) 26.2 SEC (11.7-14.0) Prothromb Time International Ratio 2.0 (0.8-1.1) 2.5 (0.8-1.1) Activated Partial Thromboplast Time 27 SEC (24-38) Fibrinogen 204 mg/dL (200-440) D-Dimer (Farida) 0.54 ug/mlFEU (0.00-0.50) Sodium Level 146 mmol/L (136-145) 143 mmol/L (136-145) Potassium Level 6.0 mmol/L (3.5-5.1) 3.7 mmol/L (3.5-5.1) Chloride Level 105 mmol/L (98-107) 103 mmol/L (98-107) Carbon Dioxide Level 15 mmol/L (21-32) 25 mmol/L (21-32) Anion Gap 26 (6-14) 15 (6-14) Blood Urea Nitrogen 30 mg/dL (8-26) 22 mg/dL (8-26) Creatinine 3.4 mg/dL (0.7-1.3) 2.2 mg/dL (0.7-1.3) Estimated GFR (Cockcroft-Gault) 25.7 42.5 BUN/Creatinine Ratio 9 (6-20) 10 (6-20) Glucose Level 95 mg/dL (70-99) 223 mg/dL (70-99) Lactic Acid Level 10.4 mmol/L (0.4-2.0) 8.5 mmol/L (0.4-2.0) 7.1 mmol/L (0.4-2.0) Calcium Level 7.9 mg/dL (8.5-10.1) 7.3 mg/dL (8.5-10.1) Total Bilirubin 0.7 mg/dL (0.2-1.0) 0.7 mg/dL (0.2-1.0) Aspartate Amino Transf (AST/SGOT) 170 U/L (15-37) 246 U/L (15-37) Alanine Aminotransferase (ALT/SGPT) 61 U/L (16-63) 73 U/L (16-63) Alkaline Phosphatase 51 U/L (46-116) 49 U/L (46-116) Total Protein 5.5 g/dL (6.4-8.2) 5.2 g/dL (6.4-8.2) Albumin 3.2 g/dL (3.4-5.0) 3.0 g/dL (3.4-5.0) Albumin/Globulin Ratio 1.4 (1.0-1.7) 1.4 (1.0-1.7) Ethyl Alcohol Level < 10 mg/dL (0-10) Acetone Level Neg (NEG) Glucose (Fingerstick) 104 mg/dL (70-99) Ionized Calcium 0.91 mmol/L (1.13-1.32) Phosphorus Level 2.3 mg/dL (2.6-4.7) Magnesium Level 3.8 mg/dL (1.8-2.4) Laboratory Tests Test 04/20/21 05:55 04/20/21 06:00 04/20/21 08:33 04/20/21 09:00 White Blood Count 16.8 x10^3/uL (4.0-11.0) Red Blood Count 4.54 x10^6/uL (4.30-5.70) Hemoglobin 13.3 g/dL (13.0-17.5) Hematocrit 41.9 % (39.0-53.0) Mean Corpuscular Volume 92 fL (79-100) Mean Corpuscular Hemoglobin 29 pg (25-35) Mean Corpuscular Hemoglobin Concent 32 g/dL (31-37) Red Cell Distribution Width 15.0 % (11.5-14.5) Platelet Count 197 x10^3/uL (140-400) Sodium Level 141 mmol/L (136-145) Potassium Level 6.3 mmol/L (3.5-5.1) Chloride Level 102 mmol/L (98-107) Carbon Dioxide Level 6 mmol/L (21-32) Anion Gap 33 (6-14) Blood Urea Nitrogen 28 mg/dL (8-26) Creatinine 3.0 mg/dL (0.7-1.3) Estimated GFR (Cockcroft-Gault) 29.7 Glucose Level 50 mg/dL (70-99) Calcium Level 8.7 mg/dL (8.5-10.1) O2 Saturation 98 % (92-99) 99 % (92-99) Arterial Blood pH 7.41 (7.35-7.45) 7.19 (7.35-7.45) Arterial Blood pH (Temp corrected) 7.42 Arterial Blood pCO2 at Patient Temp 10 mmHg (35-46) 34 mmHg (35-46) Arterial Blood pCO2 (Temp correct) < 10 mmHg Arterial Blood pO2 at Patient Temp 134 mmHg (85-108) > 503 mmHg (85-108) Arterial Blood pO2 (Temp corrected) 126 mmHg Arterial Blood HCO3 6 mmol/L (21-28) 13 mmol/L (21-28) Arterial Blood Base Excess -15 mmol/L (-3-3) -15 mmol/L (-3-3) FiO2 32 100 Glucose (Fingerstick) 111 mg/dL (70-99) Oxyhemoglobin 98.2 % Methemoglobin 0.8 % (0.0-1.9) Carbon Monoxide, Quantitative 0.2 % (0.0-1.9) Test 04/20/21 09:55 04/20/21 10:01 04/20/21 14:50 04/20/21 18:00 White Blood Count 15.6 x10^3/uL (4.0-11.0) 9.9 x10^3/uL (4.0-11.0) Red Blood Count 4.27 x10^6/uL (4.30-5.70) 4.13 x10^6/uL (4.30-5.70) Hemoglobin 12.7 g/dL (13.0-17.5) 12.6 g/dL (13.0-17.5) Hematocrit 38.7 % (39.0-53.0) 37.0 % (39.0-53.0) Mean Corpuscular Volume 91 fL (79-100) 90 fL (79-100) Mean Corpuscular Hemoglobin 30 pg (25-35) 31 pg (25-35) Mean Corpuscular Hemoglobin Concent 33 g/dL (31-37) 34 g/dL (31-37) Red Cell Distribution Width 14.6 % (11.5-14.5) 14.4 % (11.5-14.5) Platelet Count 217 x10^3/uL (140-400) 158 x10^3/uL (140-400) Neutrophils (%) (Auto) 84 % (31-73) Lymphocytes (%) (Auto) 6 % (24-48) Monocytes (%) (Auto) 9 % (0-9) Eosinophils (%) (Auto) 1 % (0-3) Basophils (%) (Auto) 0 % (0-3) Neutrophils # (Auto) 13.0 x10^3/uL (1.8-7.7) Lymphocytes # (Auto) 1.0 x10^3/uL (1.0-4.8) Monocytes # (Auto) 1.4 x10^3/uL (0.0-1.1) Eosinophils # (Auto) 0.1 x10^3/uL (0.0-0.7) Basophils # (Auto) 0.0 x10^3/uL (0.0-0.2) Segmented Neutrophils % 72 % (35-66) Band Neutrophils % 13 % (0-9) Lymphocytes % 8 % (24-48) Monocytes % 7 % (0-10) Platelet Estimate Adequate (ADEQUATE) Prothrombin Time 22.4 SEC (11.7-14.0) 26.2 SEC (11.7-14.0) Prothromb Time International Ratio 2.0 (0.8-1.1) 2.5 (0.8-1.1) Activated Partial Thromboplast Time 27 SEC (24-38) Fibrinogen 204 mg/dL (200-440) D-Dimer (Farida) 0.54 ug/mlFEU (0.00-0.50) Sodium Level 146 mmol/L (136-145) 143 mmol/L (136-145) Potassium Level 6.0 mmol/L (3.5-5.1) 3.7 mmol/L (3.5-5.1) Chloride Level 105 mmol/L (98-107) 103 mmol/L (98-107) Carbon Dioxide Level 15 mmol/L (21-32) 25 mmol/L (21-32) Anion Gap 26 (6-14) 15 (6-14) Blood Urea Nitrogen 30 mg/dL (8-26) 22 mg/dL (8-26) Creatinine 3.4 mg/dL (0.7-1.3) 2.2 mg/dL (0.7-1.3) Estimated GFR (Cockcroft-Gault) 25.7 42.5 BUN/Creatinine Ratio 9 (6-20) 10 (6-20) Glucose Level 95 mg/dL (70-99) 223 mg/dL (70-99) Lactic Acid Level 10.4 mmol/L (0.4-2.0) 8.5 mmol/L (0.4-2.0) 7.1 mmol/L (0.4-2.0) Calcium Level 7.9 mg/dL (8.5-10.1) 7.3 mg/dL (8.5-10.1) Total Bilirubin 0.7 mg/dL (0.2-1.0) 0.7 mg/dL (0.2-1.0) Aspartate Amino Transf (AST/SGOT) 170 U/L (15-37) 246 U/L (15-37) Alanine Aminotransferase (ALT/SGPT) 61 U/L (16-63) 73 U/L (16-63) Alkaline Phosphatase 51 U/L (46-116) 49 U/L (46-116) Total Protein 5.5 g/dL (6.4-8.2) 5.2 g/dL (6.4-8.2) Albumin 3.2 g/dL (3.4-5.0) 3.0 g/dL (3.4-5.0) Albumin/Globulin Ratio 1.4 (1.0-1.7) 1.4 (1.0-1.7) Ethyl Alcohol Level < 10 mg/dL (0-10) Acetone Level Neg (NEG) Glucose (Fingerstick) 104 mg/dL (70-99) Ionized Calcium 0.91 mmol/L (1.13-1.32) Phosphorus Level 2.3 mg/dL (2.6-4.7) Magnesium Level 3.8 mg/dL (1.8-2.4) Images Images Echo done this afternoon shows intact LV systolic function and no severe valvular disease. Assessment/Plan Assessment/Plan 1. Respiratory failure. Patient has been intubated. He remains sedated on ventilator. He is followed by the pulmonary service. 2. Acute kidney injury. Severely elevated potassium and creatinine. Has been seen by the renal service and started on treatment. 3. Patient was apparently found down at his facility. Possible use of K2. Continue supportive treatment as above. 4. Atrial fibrillation with episodes of probable VT as well as severe tacky arrhythmias. Patient has been cardioverted a total of 6 time to this point. He has been placed on amiodarone and is undergoing renal treatment. His rhythm has improved. Echocardiogram shows intact LV systolic function and no significant valvular abnormalities. 36 minutes were used in the evaluation and care of this critically ill patient. KARENA CROSS MD Apr 20, 2021 19:33
[2021-04-20] MEDS: [UNRECOGNIZED DRUG - OTHER] IV SCH ×2 (20:07)
[2021-04-20] MEDS ORDERED: EPINEPHrine VIAL 5 MG in IV NORMAL SALINE 250ML 250 ML IV PRN (20:30)
[2021-04-20] MEDS ORDERED: DIGOXIN IV 500 MCG/2 ML AMPUL. IV ONE ×2 (21:45→22:15)
[2021-04-20] MEDS: NOREPINEPHRINE VIAL 32 MG in IV D5W 250ML IV PRN (22:43)
[2021-04-20] MEDS ORDERED: AMIODARONE 300 MG in IV DEXTROSE 5% 100ML 100 ML IV ONE (23:30)
[2021-04-21] VITALS (38 sets, daily range): BP systolic 76–163; BP diastolic 52–98
[2021-04-21] MEDS: CALCIUM CHLORIDE IV SCH ×8 (00:17→07:03)
[2021-04-21] MEDS: MAGNESIUM SULFATE IV SCH ×8 (00:17→07:03)
[2021-04-21] MEDS: [UNRECOGNIZED DRUG - OTHER] IV SCH ×8 (00:17→07:03)
[2021-04-21] MEDS: POTASSIUM CHLORIDE IV SCH ×8 (00:17→07:03)
[2021-04-21 00:29] LABS: CALCIUM 7.3 mg/dL (8.5-10.1); GFR 47.4; MAGNESIUM 3.5 mg/dL (1.8-2.4); PHOSPHORUS 1.2 mg/dL (2.6-4.7)
[2021-04-21 00:41] LABS: POTASSIUM 2.9 mmol/L (3.5-5.1)
[2021-04-21] MEDS: NORMAL SALINE IV SCH ×3 (02:08→04:48)
[2021-04-21] MEDS: POTASSIUM PHOS M BASIC D BASIC IV SCH ×3 (02:08→04:48)
[2021-04-21] MEDS: NORCURON - VECURONIUM 50 MG in IV NORMAL SALINE 50ML 50 ML IV PRN ×2 (02:26→11:30)
--- NOTE | 2021-04-21 02:40 | NUR ---
At 1847 a critical lactic acid of 7.[address] was called [address] lab. Dr. Soler notified of patient's current status (starting to clot off CRRT), and recent labs. Heparin gtt to be started and Magnesium to be decreased in CRRT bags. CRRT clotted off at 1929, pulling multiple clots out of the line. well tester notified since patient is an immediate restart. Dialysis nurse to come down soon to restring CRRT line. Blood returned and patient detached. Patient tolerated well. Magy kavongger placed on patient R/T low temp. well tester arrived around 1999. While she was restringing the line the patient became extremely unstable. Patient's BP dropped to 63/32, HR in low 50s. Patient unstable, requiring rapid titration of Levophed d/t sustained MAP <65 beginning at 2018. Starting rate at 0.1 mcg/kg/min and patient stabilized at 2033 with MAP 81 with Levophed gtt currently infusing at 0.9 mcg/kg/min; the max rate during this time was 0.9 mcg/kg/min of medication administered during charting block which ended at 2033. Pt in sinus rhythm, HR 74, Spo2 100. CRRT restrung and attached to patient at 2044. At 2109 Patient went into SVT and was shocked at 200 J, went back into SR for a few minutes. Patient then went back into SVT, was shocked again at 200 J and came out of it once again. Page was sent out to Dr. Callahan. Patient went into SVT and was shocked a third time, but then went into Afib RVR with rate between 160-200. Dr. Callahan called back at 2139 and was updated on patient condition. Orders received to give 250 mcg Digoxin now and then repeat in 30 minutes if no response to first dose. Patient was given Dig doses x2 with no improvement. Dr. Callahan called again at 2324, updated again and orders received to give 300 mg IV amio, wait 15 minutes, and then if patient still had HR >180 to shock. Order also received to give 250 mcg Digoxin in 5 hours if patient continued to be in Afib RVR. After amio bolus patient immediately converted to ST and no shock necessary. At 2214 critical lactic acid of 6.8 called by lab, which is improvement from previous levels. MD aware that lactic will continue to be critical R/T current status. At 0041 critical potassium of 2.[address] Soler notified at 0055 of new labs. Orders received to give 40 K Phos, stop bicarb gtt, and change bicarb CRRT bag to be the same as the other two bags. Bicarb gtt ended at 0108, patient fluid removal on CRRT decreased R/T decreased IV fluid intake to ensure patient remains positive per MD order. Patient remains critically stable at this time, tolerating CRRT well. Will continue to monitor.
[2021-04-21] MEDS: AMIODARONE 450 MG in IV DEXTROSE 5% 250 ML IV PRN (02:52)
[2021-04-21] MEDS: MIDAZOLAM 100mg/100ml NS BAG 100 ML IV PRN ×2 (04:24→12:56)
[2021-04-21] MEDS: PANTOPRAZOLE SODIUM IV DRIP 80 MG in IV NORMAL SALINE 100ML 100 ML IV SCH ×2 (04:24→16:29)
[2021-04-21] MEDS ORDERED: DIGOXIN IV 500 MCG/2 ML AMPUL. IV ONE (04:30)
--- NOTE | 2021-04-21 06:07 | PDOC ---
PULMONARY PROGRESS NOTES DATE: 04/21/21 TIME: 06:03 Subjective on vent sedated on versed fentanyl on vec gtt peep 5 fio2 50% on crrt was shocked x8 for svt vtach last one 9 pm last night on amio gtt now nsr on protonix gtt Vitals Vital Signs Date Time Temp Pulse Resp B/P (MAP) Pulse Ox O2 Delivery O2 Flow Rate FiO2 04/21/21 05:00 98.2 114 30 103/63 100 Ventilator 98.2 04/20/21 08:00 3.0 Comments on vent sedated on crrt HEENT: Other (nc at orally intubated nose clear ) Lungs: Crackles Cardiovascular: S1, S2 Abdomen: Soft Extremities: Other Skin: Warm Labs Laboratory Tests Test 04/20/21 05:55 04/20/21 06:00 04/20/21 08:33 04/20/21 09:00 White Blood Count 16.8 x10^3/uL (4.0-11.0) Red Blood Count 4.54 x10^6/uL (4.30-5.70) Hemoglobin 13.3 g/dL (13.0-17.5) Hematocrit 41.9 % (39.0-53.0) Mean Corpuscular Volume 92 fL (79-100) Mean Corpuscular Hemoglobin 29 pg (25-35) Mean Corpuscular Hemoglobin Concent 32 g/dL (31-37) Red Cell Distribution Width 15.0 % (11.5-14.5) Platelet Count 197 x10^3/uL (140-400) Sodium Level 141 mmol/L (136-145) Potassium Level 6.3 mmol/L (3.5-5.1) Chloride Level 102 mmol/L (98-107) Carbon Dioxide Level 6 mmol/L (21-32) Anion Gap 33 (6-14) Blood Urea Nitrogen 28 mg/dL (8-26) Creatinine 3.0 mg/dL (0.7-1.3) Estimated GFR (Cockcroft-Gault) 29.7 Glucose Level 50 mg/dL (70-99) Calcium Level 8.7 mg/dL (8.5-10.1) O2 Saturation 98 % (92-99) 99 % (92-99) Arterial Blood pH 7.41 (7.35-7.45) 7.19 (7.35-7.45) Arterial Blood pH (Temp corrected) 7.42 Arterial Blood pCO2 at Patient Temp 10 mmHg (35-46) 34 mmHg (35-46) Arterial Blood pCO2 (Temp correct) < 10 mmHg Arterial Blood pO2 at Patient Temp 134 mmHg (85-108) > 503 mmHg (85-108) Arterial Blood pO2 (Temp corrected) 126 mmHg Arterial Blood HCO3 6 mmol/L (21-28) 13 mmol/L (21-28) Arterial Blood Base Excess -15 mmol/L (-3-3) -15 mmol/L (-3-3) FiO2 32 100 Glucose (Fingerstick) 111 mg/dL (70-99) Oxyhemoglobin 98.2 % Methemoglobin 0.8 % (0.0-1.9) Carbon Monoxide, Quantitative 0.2 % (0.0-1.9) Test 04/20/21 09:55 04/20/21 10:01 04/20/21 14:50 04/20/21 18:00 White Blood Count 15.6 x10^3/uL (4.0-11.0) 9.9 x10^3/uL (4.0-11.0) Red Blood Count 4.27 x10^6/uL (4.30-5.70) 4.13 x10^6/uL (4.30-5.70) Hemoglobin 12.7 g/dL (13.0-17.5) 12.6 g/dL (13.0-17.5) Hematocrit 38.7 % (39.0-53.0) 37.0 % (39.0-53.0) Mean Corpuscular Volume 91 fL (79-100) 90 fL (79-100) Mean Corpuscular Hemoglobin 30 pg (25-35) 31 pg (25-35) Mean Corpuscular Hemoglobin Concent 33 g/dL (31-37) 34 g/dL (31-37) Red Cell Distribution Width 14.6 % (11.5-14.5) 14.4 % (11.5-14.5) Platelet Count 217 x10^3/uL (140-400) 158 x10^3/uL (140-400) Neutrophils (%) (Auto) 84 % (31-73) Lymphocytes (%) (Auto) 6 % (24-48) Monocytes (%) (Auto) 9 % (0-9) Eosinophils (%) (Auto) 1 % (0-3) Basophils (%) (Auto) 0 % (0-3) Neutrophils # (Auto) 13.0 x10^3/uL (1.8-7.7) Lymphocytes # (Auto) 1.0 x10^3/uL (1.0-4.8) Monocytes # (Auto) 1.4 x10^3/uL (0.0-1.1) Eosinophils # (Auto) 0.1 x10^3/uL (0.0-0.7) Basophils # (Auto) 0.0 x10^3/uL (0.0-0.2) Segmented Neutrophils % 72 % (35-66) Band Neutrophils % 13 % (0-9) Lymphocytes % 8 % (24-48) Monocytes % 7 % (0-10) Platelet Estimate Adequate (ADEQUATE) Prothrombin Time 22.4 SEC (11.7-14.0) 26.2 SEC (11.7-14.0) Prothromb Time International Ratio 2.0 (0.8-1.1) 2.5 (0.8-1.1) Activated Partial Thromboplast Time 27 SEC (24-38) Fibrinogen 204 mg/dL (200-440) D-Dimer (Farida) 0.54 ug/mlFEU (0.00-0.50) Sodium Level 146 mmol/L (136-145) 143 mmol/L (136-145) Potassium Level 6.0 mmol/L (3.5-5.1) 3.7 mmol/L (3.5-5.1) Chloride Level 105 mmol/L (98-107) 103 mmol/L (98-107) Carbon Dioxide Level 15 mmol/L (21-32) 25 mmol/L (21-32) Anion Gap 26 (6-14) 15 (6-14) Blood Urea Nitrogen 30 mg/dL (8-26) 22 mg/dL (8-26) Creatinine 3.4 mg/dL (0.7-1.3) 2.2 mg/dL (0.7-1.3) Estimated GFR (Cockcroft-Gault) 25.7 42.5 BUN/Creatinine Ratio 9 (6-20) 10 (6-20) Glucose Level 95 mg/dL (70-99) 223 mg/dL (70-99) Lactic Acid Level 10.4 mmol/L (0.4-2.0) 8.5 mmol/L (0.4-2.0) 7.1 mmol/L (0.4-2.0) Calcium Level 7.9 mg/dL (8.5-10.1) 7.3 mg/dL (8.5-10.1) Total Bilirubin 0.7 mg/dL (0.2-1.0) 0.7 mg/dL (0.2-1.0) Aspartate Amino Transf (AST/SGOT) 170 U/L (15-37) 246 U/L (15-37) Alanine Aminotransferase (ALT/SGPT) 61 U/L (16-63) 73 U/L (16-63) Alkaline Phosphatase 51 U/L (46-116) 49 U/L (46-116) Total Protein 5.5 g/dL (6.4-8.2) 5.2 g/dL (6.4-8.2) Albumin 3.2 g/dL (3.4-5.0) 3.0 g/dL (3.4-5.0) Albumin/Globulin Ratio 1.4 (1.0-1.7) 1.4 (1.0-1.7) Ethyl Alcohol Level < 10 mg/dL (0-10) Acetone Level Neg (NEG) Glucose (Fingerstick) 104 mg/dL (70-99) Ionized Calcium 0.91 mmol/L (1.13-1.32) Phosphorus Level 2.3 mg/dL (2.6-4.7) Magnesium Level 3.8 mg/dL (1.8-2.4) Test 04/20/21 21:25 04/20/21 21:26 04/20/21 23:59 04/21/21 01:48 Lactic Acid Level 6.8 mmol/L (0.4-2.0) Glucose (Fingerstick) 257 mg/dL (70-99) Sodium Level 143 mmol/L (136-145) Potassium Level 2.9 mmol/L (3.5-5.1) Chloride Level 102 mmol/L (98-107) Carbon Dioxide Level 28 mmol/L (21-32) Anion Gap 13 (6-14) Blood Urea Nitrogen 18 mg/dL (8-26) Creatinine 2.0 mg/dL (0.7-1.3) Estimated GFR (Cockcroft-Gault) 47.4 Glucose Level 290 mg/dL (70-99) Calcium Level 7.3 mg/dL (8.5-10.1) Phosphorus Level 1.2 mg/dL (2.6-4.7) Magnesium Level 3.5 mg/dL (1.8-2.4) Heparin Anti-Xa Act, Unfractionated 0.47 IU/mL (0.30-0.70) Laboratory Tests Test 04/20/21 08:33 04/20/21 09:00 04/20/21 09:55 04/20/21 10:01 Glucose (Fingerstick) 111 mg/dL (70-99) 104 mg/dL (70-99) O2 Saturation 99 % (92-99) Arterial Blood pH 7.19 (7.35-7.45) Arterial Blood pCO2 at Patient Temp 34 mmHg (35-46) Arterial Blood pO2 at Patient Temp > 503 mmHg (85-108) Arterial Blood HCO3 13 mmol/L (21-28) Arterial Blood Base Excess -15 mmol/L (-3-3) Oxyhemoglobin 98.2 % Methemoglobin 0.8 % (0.0-1.9) Carbon Monoxide, Quantitative 0.2 % (0.0-1.9) FiO2 100 White Blood Count 15.6 x10^3/uL (4.0-11.0) Red Blood Count 4.27 x10^6/uL (4.30-5.70) Hemoglobin 12.7 g/dL (13.0-17.5) Hematocrit 38.7 % (39.0-53.0) Mean Corpuscular Volume 91 fL (79-100) Mean Corpuscular Hemoglobin 30 pg (25-35) Mean Corpuscular Hemoglobin Concent 33 g/dL (31-37) Red Cell Distribution Width 14.6 % (11.5-14.5) Platelet Count 217 x10^3/uL (140-400) Neutrophils (%) (Auto) 84 % (31-73) Lymphocytes (%) (Auto) 6 % (24-48) Monocytes (%) (Auto) 9 % (0-9) Eosinophils (%) (Auto) 1 % (0-3) Basophils (%) (Auto) 0 % (0-3) Neutrophils # (Auto) 13.0 x10^3/uL (1.8-7.7) Lymphocytes # (Auto) 1.0 x10^3/uL (1.0-4.8) Monocytes # (Auto) 1.4 x10^3/uL (0.0-1.1) Eosinophils # (Auto) 0.1 x10^3/uL (0.0-0.7) Basophils # (Auto) 0.0 x10^3/uL (0.0-0.2) Segmented Neutrophils % 72 % (35-66) Band Neutrophils % 13 % (0-9) Lymphocytes % 8 % (24-48) Monocytes % 7 % (0-10) Platelet Estimate Adequate (ADEQUATE) Prothrombin Time 22.4 SEC (11.7-14.0) Prothromb Time International Ratio 2.0 (0.8-1.1) Activated Partial Thromboplast Time 27 SEC (24-38) Fibrinogen 204 mg/dL (200-440) D-Dimer (Farida) 0.54 ug/mlFEU (0.00-0.50) Sodium Level 146 mmol/L (136-145) Potassium Level 6.0 mmol/L (3.5-5.1) Chloride Level 105 mmol/L (98-107) Carbon Dioxide Level 15 mmol/L (21-32) Anion Gap 26 (6-14) Blood Urea Nitrogen 30 mg/dL (8-26) Creatinine 3.4 mg/dL (0.7-1.3) Estimated GFR (Cockcroft-Gault) 25.7 BUN/Creatinine Ratio 9 (6-20) Glucose Level 95 mg/dL (70-99) Lactic Acid Level 10.4 mmol/L (0.4-2.0) Calcium Level 7.9 mg/dL (8.5-10.1) Total Bilirubin 0.7 mg/dL (0.2-1.0) Aspartate Amino Transf (AST/SGOT) 170 U/L (15-37) Alanine Aminotransferase (ALT/SGPT) 61 U/L (16-63) Alkaline Phosphatase 51 U/L (46-116) Total Protein 5.5 g/dL (6.4-8.2) Albumin 3.2 g/dL (3.4-5.0) Albumin/Globulin Ratio 1.4 (1.0-1.7) Ethyl Alcohol Level < 10 mg/dL (0-10) Acetone Level Neg (NEG) Test 04/20/21 14:50 04/20/21 18:00 04/20/21 21:25 04/20/21 21:26 Lactic Acid Level 8.5 mmol/L (0.4-2.0) 7.1 mmol/L (0.4-2.0) 6.8 mmol/L (0.4-2.0) White Blood Count 9.9 x10^3/uL (4.0-11.0) Red Blood Count 4.13 x10^6/uL (4.30-5.70) Hemoglobin 12.6 g/dL (13.0-17.5) Hematocrit 37.0 % (39.0-53.0) Mean Corpuscular Volume 90 fL (79-100) Mean Corpuscular Hemoglobin 31 pg (25-35) Mean Corpuscular Hemoglobin Concent 34 g/dL (31-37) Red Cell Distribution Width 14.4 % (11.5-14.5) Platelet Count 158 x10^3/uL (140-400) Prothrombin Time 26.2 SEC (11.7-14.0) Prothromb Time International Ratio 2.5 (0.8-1.1) Sodium Level 143 mmol/L (136-145) Potassium Level 3.7 mmol/L (3.5-5.1) Chloride Level 103 mmol/L (98-107) Carbon Dioxide Level 25 mmol/L (21-32) Anion Gap 15 (6-14) Blood Urea Nitrogen 22 mg/dL (8-26) Creatinine 2.2 mg/dL (0.7-1.3) Estimated GFR (Cockcroft-Gault) 42.5 BUN/Creatinine Ratio 10 (6-20) Glucose Level 223 mg/dL (70-99) Calcium Level 7.3 mg/dL (8.5-10.1) Ionized Calcium 0.91 mmol/L (1.13-1.32) Phosphorus Level 2.3 mg/dL (2.6-4.7) Magnesium Level 3.8 mg/dL (1.8-2.4) Total Bilirubin 0.7 mg/dL (0.2-1.0) Aspartate Amino Transf (AST/SGOT) 246 U/L (15-37) Alanine Aminotransferase (ALT/SGPT) 73 U/L (16-63) Alkaline Phosphatase 49 U/L (46-116) Total Protein 5.2 g/dL (6.4-8.2) Albumin 3.0 g/dL (3.4-5.0) Albumin/Globulin Ratio 1.4 (1.0-1.7) Glucose (Fingerstick) 257 mg/dL (70-99) Test 04/20/21 23:59 04/21/21 01:48 Sodium Level 143 mmol/L (136-145) Potassium Level 2.9 mmol/L (3.5-5.1) Chloride Level 102 mmol/L (98-107) Carbon Dioxide Level 28 mmol/L (21-32) Anion Gap 13 (6-14) Blood Urea Nitrogen 18 mg/dL (8-26) Creatinine 2.0 mg/dL (0.7-1.3) Estimated GFR (Cockcroft-Gault) 47.4 Glucose Level 290 mg/dL (70-99) Calcium Level 7.3 mg/dL (8.5-10.1) Phosphorus Level 1.2 mg/dL (2.6-4.7) Magnesium Level 3.5 mg/dL (1.8-2.4) Heparin Anti-Xa Act, Unfractionated 0.47 IU/mL (0.30-0.70) Comments cxr reviewed ett ok l atelectasis Impression . IMPRESSION: 1. Acute respiratory failure, multifactorial, mainly related to severe metabolic acidosis and renal failure. 2. Metabolic acidosis related to renal failure and toxic ingestion of K2. 3. Severe metabolic acidosis per Nephrology. 4. Toxic encephalopathy. 5. Abnormal x-ray, compatible with left lower lobe infiltrate, possible pneumonia. 6. Acute renal failure. 7. Lactic acidosis. 8. Atrial fibrillation/svt v tach. 9. Protein malnutrition, present upon admission. Plan . PLAN: 1. cont vent support setting reviewed abg reviewed decrease rr to 16 fio2 to 40% 2. Follow Nephrology input. crrt close monitoring of mg k 3. Empiric antibiotics. 4. DVT prophylaxis. 5. protonix gtt 6. amio gtt per cardiology 7. will do uds prognosis poor discussed w rn, rt critically ill cct 30 min no overlap LONG FRENCH MD Apr 21, 2021 06:07
[2021-04-21 06:39] LABS: BASO % 0 % (0-3); EOS % 0 % (0-3); HEMATOCRIT 39.4 % (39.0-53.0); HEMOGLOBIN 13.3 g/dL (13.0-17.5); LYMPH # 1.3 x10^3/uL (1.0-4.8); LYMPH % 17 % (24-48); MEAN CORPUSCULAR HEMOGLOBIN 30 pg (25-35); MEAN CORPUSCULAR HGB CONC 34 g/dL (31-37); MEAN CORPUSCULAR VOLUME 89 fL (79-100); MONO # 0.5 x10^3/uL (0.0-1.1); MONO % 6 % (0-9); NEUT # 5.9 x10^3/uL (1.8-7.7); NEUT % 77 % (31-73); PLATELET COUNT 129 x10^3/uL (140-400); RED BLOOD COUNT 4.43 x10^6/uL (4.30-5.70); RED CELL DISTRIBUTION WIDTH 14.3 % (11.5-14.5); WHITE BLOOD COUNT 7.6 x10^3/uL (4.0-11.0)
--- NOTE | 2021-04-21 06:48 | NUR ---
This RN has reviewed and approves of SN charting.
[2021-04-21 06:51] LABS: CALCIUM 8.6 mg/dL (8.5-10.1); CREATININE 1.4 mg/dL (0.7-1.3); GFR 71.5; MAGNESIUM 3.5 mg/dL (1.8-2.4); PHOSPHORUS 2.1 mg/dL (2.6-4.7); POTASSIUM 3.3 mmol/L (3.5-5.1)
[2021-04-21 07:14] LABS: BILIRUBIN,URINE NEGATIVE (NEG); CLARITY,URINE CLEAR; COLOR,URINE YELLOW; NITRITE,URINE NEGATIVE (NEG); PROTEIN,URINE NEGATIVE (NEG-TRACE); UROBILINOGEN,URINE 0.2 mg/dL (0.2 mg/dL)
[2021-04-21] MEDS: NOREPINEPHRINE VIAL 32 MG in IV D5W 250ML IV PRN ×2 (07:21→16:58)
[2021-04-21 08:03] LABS: BASE EXCESS ABG 5 mmol/L (-3-3); HCO3 ABG 25 mmol/L (21-28); PCO2 ABG 24 mmHg (35-46); PO2 ABG 210 mmHg (85-108); SAT O2 ABG 99 % (92-99)
[2021-04-21 08:28] LABS: PROTHROMBIN TIME PATIENT 31.3 SEC (11.7-14.0)
[2021-04-21 08:35] LABS: BACTERIA,URINE 0 /HPF (0-FEW); WBC,URINE OCC /HPF (0-4)
--- NOTE | 2021-04-21 08:40 | RAD ---
EXAM: CHEST ONE VIEW. HISTORY: Intubated, respiratory failure. COMPARISON: 04/20/2021. FINDINGS: A frontal view of the chest is obtained. An endotracheal tube has its tip 5 cm above the ca douglas. A nasogastric tube has its tip in the stomach. Right internal jugular hemodialysis and central venous catheters have their tips in the superior cavoatrial junction. Aeration has improved. There are no confluent infiltrates. There is no pneumothorax or pleural effusi on. The heart is not enlarged. IMPRESSION: 1. No confluent infiltrates. Electronically signed by: Esthela Cordero MD (04/21/2021 8:37 AM) [facility]
[2021-04-21] MEDS: fentaNYL HIGH DOSE PCA 55 ML IV PRN (09:47)
--- NOTE | 2021-04-21 09:58 | HP ---
DATE OF SERVICE: 04/21/2021 ADMIT DATE: 04/20/2021 HISTORY OF PRESENT ILLNESS: The patient is a 30-year-old -[place], who is an inmate and who apparently came from [employer] retirement and who presented to the Emergency Room of [facility] with altered mental status. He reportedly was using drugs x 2 earlier the day before arrival to the Emergency Room. In retirement, the patient was found down the night before arrival and very agitated with an altered state of consciousness. He was given 10 mg of Versed in order to transport him for medical evaluation. On arrival, he was on nonrebreather mask and hyperventilating. He was tachypneic, tachycardic and hypotensive. His heart rate was 140, blood pressure was 91/70, his oxygen saturation was 100% on nonrebreather mask. He does not seem to focus. He only responds to painful stimuli. He does move extremities to painful stimuli and cross-reacts. He was apparently extensively investigated in the Emergency Room and has had lab work that showed white cell count 24,000; normal hemoglobin, hematocrit and platelets. His blood gases initially showed pH of 7.06, pCO2 of 7, pO2 of 122, and bicarb was only 2 and oxygen saturation was 98% on room air. His prothrombin time was elevated at 21.6, INR of 2.1. APTT and D-dimer were normal. His chemistry showed that he has hyperkalemia, high anion gap metabolic acidosis and his lactic acid was high at 20.8, although his liver enzymes were all within normal range. His total protein was 8.5 and albumin was 4.8. Urinalysis was essentially unremarkable and tox screen was negative for all drugs including opiates, methadone, barbiturates, amphetamine, methamphetamine, benzodiazepine, cocaine, cannabinoid. He had a chest x-ray, which showed that heart and mediastinum are normal, lungs are well expanded and clear; no consolidation, pleural effusion or pneumothorax. The pulmonary vascularity is normal. The thoracic skeleton is intact. CT scan of the head and cervical spine, the examination was limited due to motion artifact but grossly no acute intracranial finding and no acute fracture of the cervical spine. The patient has had a CT scan of the abdomen and pelvis, which unfortunately was a very limited examination due to significant motion artifact, mild thickened appearance of the wall of the ascending colon could be secondary to non-distention or colitis and hepatic steatosis. He apparently was started on BiPAP and his blood gas improved too and given an amp of bicarb and started on a bicarb drip and his arterial blood gases showed a pH of 7.25, pCO2 of 7, pO2 of 100, bicarb only 3 and oxygen saturation was 98% on room air. His urinalysis was negative for nitrite and leukocyte esterase with 3-5 rbc's and 5-10 wbc's, very few bacteria and his tox screen was negative. His blood alcohol level was less than 10. PHYSICAL EXAMINATION: GENERAL: On examining him on arrival, he looked well and was clearly in no apparent respiratory distress. No pallor, jaundice, cyanosis, or thyromegaly. No jugular venous distention. No limb edema. VITAL SIGNS: His heart rate was 139, blood pressure was 91/70, temperature was 89, respiratory rate 20, and oxygen saturation was 98% on nonrebreather mask. HEAD, EYES, EARS, NOSE, AND THROAT: Normocephalic, atraumatic. NECK: Supple. HEART: Normal first and second heart sounds, no gallop or murmur. CHEST: Shows central trachea, equal bilateral chest expansion, air entry, vesicular breath sounds. No crepitation or rhonchi. ABDOMEN: Distended, soft, nontender. NEUROLOGIC: He was grossly intact. He was unresponsive. He does open his eyes spontaneously, but does not track or follow command. He moves extremities to painful stimuli. ASSESSMENT AND PLAN: 1. The patient was transferred to [facility] with altered mental status. 2. History of polysubstance abuse. 3. Severe metabolic acidosis. 4. Hypothermia with temperature of only 89.4 Fahrenheit rectally. 5. Acute renal failure. His BUN is 26, creatinine was 3.4 and hyperkalemia with potassium of 5.6. 6. Elevated lactic acid at 20.8. 7. Leukocytosis with a white cell count 24,700. 8. Atrial fibrillation with rapid ventricular response. 9. Elevated INR. The patient was not on any anticoagulant. The patient was given more IV fluid on arrival to the ICU and started him also on a bicarb drip with 3 amps of bicarbonate and 1 liter of D5. 10. I did consult the neurologist, the [place] program coordinator. As his lactic acid continues to be high, we did actually KUB, which showed that the patient might have small-bowel obstruction and did consult the surgical team for that. His white cell count is high and I would also consult the Infectious Disease specialist. OCTAVIO/DIONE DR: Checo TID: [id number]
--- NOTE | 2021-04-21 10:20 | PDOC ---
Dialysis Progress Note Date of Service: DATE: 04/21/21 TIME: 10:16 Dialysis Note Dialysis Note Seen on CRRT: Tolerating well for now. Remains sedated intubated on the ventilator Neck: No JVD or JVP Chest: CTA [place] Heart: S1 S2 Abdomen - Soft NTND Extremities - No Edema ARF: Now nonoliguric with adequate urine output Metabolic acidosis now resolved Low potassium supplement as ordered Low phosphorus: Supplement as ordered Slightly elevated magnesium:. CRRT and reevaluate trend of same. Unclear if patient consumed some magnesium Vitals Vital Signs Vital Signs Date Time Temp Pulse Resp B/P (MAP) Pulse Ox O2 Delivery O2 Flow Rate FiO2 04/21/21 10:09 100 Ventilator 04/21/21 09:57 98.4 100 16 93/60 98.4 04/21/21 09:47 3.0 Labs Last Labs Laboratory Tests Test 04/20/21 05:55 04/20/21 06:00 04/20/21 08:33 04/20/21 09:00 White Blood Count 16.8 x10^3/uL (4.0-11.0) Red Blood Count 4.54 x10^6/uL (4.30-5.70) Hemoglobin 13.3 g/dL (13.0-17.5) Hematocrit 41.9 % (39.0-53.0) Mean Corpuscular Volume 92 fL (79-100) Mean Corpuscular Hemoglobin 29 pg (25-35) Mean Corpuscular Hemoglobin Concent 32 g/dL (31-37) Red Cell Distribution Width 15.0 % (11.5-14.5) Platelet Count 197 x10^3/uL (140-400) Sodium Level 141 mmol/L (136-145) Potassium Level 6.3 mmol/L (3.5-5.1) Chloride Level 102 mmol/L (98-107) Carbon Dioxide Level 6 mmol/L (21-32) Anion Gap 33 (6-14) Blood Urea Nitrogen 28 mg/dL (8-26) Creatinine 3.0 mg/dL (0.7-1.3) Estimated GFR (Cockcroft-Gault) 29.7 Glucose Level 50 mg/dL (70-99) Calcium Level 8.7 mg/dL (8.5-10.1) O2 Saturation 98 % (92-99) 99 % (92-99) Arterial Blood pH 7.41 (7.35-7.45) 7.19 (7.35-7.45) Arterial Blood pH (Temp corrected) 7.42 Arterial Blood pCO2 at Patient Temp 10 mmHg (35-46) 34 mmHg (35-46) Arterial Blood pCO2 (Temp correct) < 10 mmHg Arterial Blood pO2 at Patient Temp 134 mmHg (85-108) > 503 mmHg (85-108) Arterial Blood pO2 (Temp corrected) 126 mmHg Arterial Blood HCO3 6 mmol/L (21-28) 13 mmol/L (21-28) Arterial Blood Base Excess -15 mmol/L (-3-3) -15 mmol/L (-3-3) FiO2 32 100 Glucose (Fingerstick) 111 mg/dL (70-99) Oxyhemoglobin 98.2 % Methemoglobin 0.8 % (0.0-1.9) Carbon Monoxide, Quantitative 0.2 % (0.0-1.9) Test 04/20/21 09:55 04/20/21 10:01 04/20/21 14:50 04/20/21 18:00 White Blood Count 15.6 x10^3/uL (4.0-11.0) 9.9 x10^3/uL (4.0-11.0) Red Blood Count 4.27 x10^6/uL (4.30-5.70) 4.13 x10^6/uL (4.30-5.70) Hemoglobin 12.7 g/dL (13.0-17.5) 12.6 g/dL (13.0-17.5) Hematocrit 38.7 % (39.0-53.0) 37.0 % (39.0-53.0) Mean Corpuscular Volume 91 fL (79-100) 90 fL (79-100) Mean Corpuscular Hemoglobin 30 pg (25-35) 31 pg (25-35) Mean Corpuscular Hemoglobin Concent 33 g/dL (31-37) 34 g/dL (31-37) Red Cell Distribution Width 14.6 % (11.5-14.5) 14.4 % (11.5-14.5) Platelet Count 217 x10^3/uL (140-400) 158 x10^3/uL (140-400) Neutrophils (%) (Auto) 84 % (31-73) Lymphocytes (%) (Auto) 6 % (24-48) Monocytes (%) (Auto) 9 % (0-9) Eosinophils (%) (Auto) 1 % (0-3) Basophils (%) (Auto) 0 % (0-3) Neutrophils # (Auto) 13.0 x10^3/uL (1.8-7.7) Lymphocytes # (Auto) 1.0 x10^3/uL (1.0-4.8) Monocytes # (Auto) 1.4 x10^3/uL (0.0-1.1) Eosinophils # (Auto) 0.1 x10^3/uL (0.0-0.7) Basophils # (Auto) 0.0 x10^3/uL (0.0-0.2) Segmented Neutrophils % 72 % (35-66) Band Neutrophils % 13 % (0-9) Lymphocytes % 8 % (24-48) Monocytes % 7 % (0-10) Platelet Estimate Adequate (ADEQUATE) Prothrombin Time 22.4 SEC (11.7-14.0) 26.2 SEC (11.7-14.0) Prothromb Time International Ratio 2.0 (0.8-1.1) 2.5 (0.8-1.1) Activated Partial Thromboplast Time 27 SEC (24-38) Fibrinogen 204 mg/dL (200-440) D-Dimer (Farida) 0.54 ug/mlFEU (0.00-0.50) Sodium Level 146 mmol/L (136-145) 143 mmol/L (136-145) Potassium Level 6.0 mmol/L (3.5-5.1) 3.7 mmol/L (3.5-5.1) Chloride Level 105 mmol/L (98-107) 103 mmol/L (98-107) Carbon Dioxide Level 15 mmol/L (21-32) 25 mmol/L (21-32) Anion Gap 26 (6-14) 15 (6-14) Blood Urea Nitrogen 30 mg/dL (8-26) 22 mg/dL (8-26) Creatinine 3.4 mg/dL (0.7-1.3) 2.2 mg/dL (0.7-1.3) Estimated GFR (Cockcroft-Gault) 25.7 42.5 BUN/Creatinine Ratio 9 (6-20) 10 (6-20) Glucose Level 95 mg/dL (70-99) 223 mg/dL (70-99) Lactic Acid Level 10.4 mmol/L (0.4-2.0) 8.5 mmol/L (0.4-2.0) 7.1 mmol/L (0.4-2.0) Calcium Level 7.9 mg/dL (8.5-10.1) 7.3 mg/dL (8.5-10.1) Total Bilirubin 0.7 mg/dL (0.2-1.0) 0.7 mg/dL (0.2-1.0) Aspartate Amino Transf (AST/SGOT) 170 U/L (15-37) 246 U/L (15-37) Alanine Aminotransferase (ALT/SGPT) 61 U/L (16-63) 73 U/L (16-63) Alkaline Phosphatase 51 U/L (46-116) 49 U/L (46-116) Total Protein 5.5 g/dL (6.4-8.2) 5.2 g/dL (6.4-8.2) Albumin 3.2 g/dL (3.4-5.0) 3.0 g/dL (3.4-5.0) Albumin/Globulin Ratio 1.4 (1.0-1.7) 1.4 (1.0-1.7) Ethyl Alcohol Level < 10 mg/dL (0-10) Acetone Level Neg (NEG) Glucose (Fingerstick) 104 mg/dL (70-99) Ionized Calcium 0.91 mmol/L (1.13-1.32) Phosphorus Level 2.3 mg/dL (2.6-4.7) Magnesium Level 3.8 mg/dL (1.8-2.4) Test 04/20/21 21:25 04/20/21 21:26 04/20/21 23:59 04/21/21 01:48 Lactic Acid Level 6.8 mmol/L (0.4-2.0) Glucose (Fingerstick) 257 mg/dL (70-99) Sodium Level 143 mmol/L (136-145) Potassium Level 2.9 mmol/L (3.5-5.1) Chloride Level 102 mmol/L (98-107) Carbon Dioxide Level 28 mmol/L (21-32) Anion Gap 13 (6-14) Blood Urea Nitrogen 18 mg/dL (8-26) Creatinine 2.0 mg/dL (0.7-1.3) Estimated GFR (Cockcroft-Gault) 47.4 Glucose Level 290 mg/dL (70-99) Calcium Level 7.3 mg/dL (8.5-10.1) Phosphorus Level 1.2 mg/dL (2.6-4.7) Magnesium Level 3.5 mg/dL (1.8-2.4) Heparin Anti-Xa Act, Unfractionated 0.47 IU/mL (0.30-0.70) Test 04/21/21 06:20 04/21/21 06:40 04/21/21 07:45 White Blood Count 7.6 x10^3/uL (4.0-11.0) Red Blood Count 4.43 x10^6/uL (4.30-5.70) Hemoglobin 13.3 g/dL (13.0-17.5) Hematocrit 39.4 % (39.0-53.0) Mean Corpuscular Volume 89 fL (79-100) Mean Corpuscular Hemoglobin 30 pg (25-35) Mean Corpuscular Hemoglobin Concent 34 g/dL (31-37) Red Cell Distribution Width 14.3 % (11.5-14.5) Platelet Count 129 x10^3/uL (140-400) Neutrophils (%) (Auto) 77 % (31-73) Lymphocytes (%) (Auto) 17 % (24-48) Monocytes (%) (Auto) 6 % (0-9) Eosinophils (%) (Auto) 0 % (0-3) Basophils (%) (Auto) 0 % (0-3) Neutrophils # (Auto) 5.9 x10^3/uL (1.8-7.7) Lymphocytes # (Auto) 1.3 x10^3/uL (1.0-4.8) Monocytes # (Auto) 0.5 x10^3/uL (0.0-1.1) Eosinophils # (Auto) 0.0 x10^3/uL (0.0-0.7) Basophils # (Auto) 0.0 x10^3/uL (0.0-0.2) Prothrombin Time 31.3 SEC (11.7-14.0) Prothromb Time International Ratio 3.1 (0.8-1.1) Heparin Anti-Xa Act, Unfractionated 0.68 IU/mL (0.30-0.70) Sodium Level 145 mmol/L (136-145) Potassium Level 3.3 mmol/L (3.5-5.1) Chloride Level 107 mmol/L (98-107) Carbon Dioxide Level 28 mmol/L (21-32) Anion Gap 10 (6-14) Blood Urea Nitrogen 13 mg/dL (8-26) Creatinine 1.4 mg/dL (0.7-1.3) Estimated GFR (Cockcroft-Gault) 71.5 Glucose Level 143 mg/dL (70-99) Calcium Level 8.6 mg/dL (8.5-10.1) Phosphorus Level 2.1 mg/dL (2.6-4.7) Magnesium Level 3.5 mg/dL (1.8-2.4) Urine Collection Type Unknown Urine Color Yellow Urine Clarity Clear Urine pH 7.0 (<5.0-8.0) Urine Specific [place] <=1.005 (1.000-1.030) Urine Protein Negative mg/dL (NEG-TRACE) Urine Glucose (UA) Negative mg/dL (NEG) Urine Ketones (Stick) Trace mg/dL (NEG) Urine Blood Moderate (NEG) Urine Nitrite Negative (NEG) Urine Bilirubin Negative (NEG) Urine Urobilinogen Dipstick 0.2 mg/dL (0.2 mg/dL) Urine Leukocyte Esterase Negative (NEG) Urine RBC 1-2 /HPF (0-2) Urine WBC Occ /HPF (0-4) Urine Squamous Epithelial Cells Occ /LPF Urine Bacteria 0 /HPF (0-FEW) O2 Saturation 99 % (92-99) Arterial Blood pH 7.64 (7.35-7.45) Arterial Blood pCO2 at Patient Temp 24 mmHg (35-46) Arterial Blood pO2 at Patient Temp 210 mmHg (85-108) Arterial Blood HCO3 25 mmol/L (21-28) Arterial Blood Base Excess 5 mmol/L (-3-3) FiO2 50/vent Laboratory Tests Test 04/20/21 14:50 04/20/21 18:00 04/20/21 21:25 04/20/21 21:26 Lactic Acid Level 8.5 mmol/L (0.4-2.0) 7.1 mmol/L (0.4-2.0) 6.8 mmol/L (0.4-2.0) White Blood Count 9.9 x10^3/uL (4.0-11.0) Red Blood Count 4.13 x10^6/uL (4.30-5.70) Hemoglobin 12.6 g/dL (13.0-17.5) Hematocrit 37.0 % (39.0-53.0) Mean Corpuscular Volume 90 fL (79-100) Mean Corpuscular Hemoglobin 31 pg (25-35) Mean Corpuscular Hemoglobin Concent 34 g/dL (31-37) Red Cell Distribution Width 14.4 % (11.5-14.5) Platelet Count 158 x10^3/uL (140-400) Prothrombin Time 26.2 SEC (11.7-14.0) Prothromb Time International Ratio 2.5 (0.8-1.1) Sodium Level 143 mmol/L (136-145) Potassium Level 3.7 mmol/L (3.5-5.1) Chloride Level 103 mmol/L (98-107) Carbon Dioxide Level 25 mmol/L (21-32) Anion Gap 15 (6-14) Blood Urea Nitrogen 22 mg/dL (8-26) Creatinine 2.2 mg/dL (0.7-1.3) Estimated GFR (Cockcroft-Gault) 42.5 BUN/Creatinine Ratio 10 (6-20) Glucose Level 223 mg/dL (70-99) Calcium Level 7.3 mg/dL (8.5-10.1) Ionized Calcium 0.91 mmol/L (1.13-1.32) Phosphorus Level 2.3 mg/dL (2.6-4.7) Magnesium Level 3.8 mg/dL (1.8-2.4) Total Bilirubin 0.7 mg/dL (0.2-1.0) Aspartate Amino Transf (AST/SGOT) 246 U/L (15-37) Alanine Aminotransferase (ALT/SGPT) 73 U/L (16-63) Alkaline Phosphatase 49 U/L (46-116) Total Protein 5.2 g/dL (6.4-8.2) Albumin 3.0 g/dL (3.4-5.0) Albumin/Globulin Ratio 1.4 (1.0-1.7) Glucose (Fingerstick) 257 mg/dL (70-99) Test 04/20/21 23:59 04/21/21 01:48 04/21/21 06:20 04/21/21 06:40 Sodium Level 143 mmol/L (136-145) 145 mmol/L (136-145) Potassium Level 2.9 mmol/L (3.5-5.1) 3.3 mmol/L (3.5-5.1) Chloride Level 102 mmol/L (98-107) 107 mmol/L (98-107) Carbon Dioxide Level 28 mmol/L (21-32) 28 mmol/L (21-32) Anion Gap 13 (6-14) 10 (6-14) Blood Urea Nitrogen 18 mg/dL (8-26) 13 mg/dL (8-26) Creatinine 2.0 mg/dL (0.7-1.3) 1.4 mg/dL (0.7-1.3) Estimated GFR (Cockcroft-Gault) 47.4 71.5 Glucose Level 290 mg/dL (70-99) 143 mg/dL (70-99) Calcium Level 7.3 mg/dL (8.5-10.1) 8.6 mg/dL (8.5-10.1) Phosphorus Level 1.2 mg/dL (2.6-4.7) 2.1 mg/dL (2.6-4.7) Magnesium Level 3.5 mg/dL (1.8-2.4) 3.5 mg/dL (1.8-2.4) Heparin Anti-Xa Act, Unfractionated 0.47 IU/mL (0.30-0.70) 0.68 IU/mL (0.30-0.70) White Blood Count 7.6 x10^3/uL (4.0-11.0) Red Blood Count 4.43 x10^6/uL (4.30-5.70) Hemoglobin 13.3 g/dL (13.0-17.5) Hematocrit 39.4 % (39.0-53.0) Mean Corpuscular Volume 89 fL (79-100) Mean Corpuscular Hemoglobin 30 pg (25-35) Mean Corpuscular Hemoglobin Concent 34 g/dL (31-37) Red Cell Distribution Width 14.3 % (11.5-14.5) Platelet Count 129 x10^3/uL (140-400) Neutrophils (%) (Auto) 77 % (31-73) Lymphocytes (%) (Auto) 17 % (24-48) Monocytes (%) (Auto) 6 % (0-9) Eosinophils (%) (Auto) 0 % (0-3) Basophils (%) (Auto) 0 % (0-3) Neutrophils # (Auto) 5.9 x10^3/uL (1.8-7.7) Lymphocytes # (Auto) 1.3 x10^3/uL (1.0-4.8) Monocytes # (Auto) 0.5 x10^3/uL (0.0-1.1) Eosinophils # (Auto) 0.0 x10^3/uL (0.0-0.7) Basophils # (Auto) 0.0 x10^3/uL (0.0-0.2) Prothrombin Time 31.3 SEC (11.7-14.0) Prothromb Time International Ratio 3.1 (0.8-1.1) Urine Collection Type Unknown Urine Color Yellow Urine Clarity Clear Urine pH 7.0 (<5.0-8.0) Urine Specific [place] <=1.005 (1.000-1.030) Urine Protein Negative mg/dL (NEG-TRACE) Urine Glucose (UA) Negative mg/dL (NEG) Urine Ketones (Stick) Trace mg/dL (NEG) Urine Blood Moderate (NEG) Urine Nitrite Negative (NEG) Urine Bilirubin Negative (NEG) Urine Urobilinogen Dipstick 0.2 mg/dL (0.2 mg/dL) Urine Leukocyte Esterase Negative (NEG) Urine RBC 1-2 /HPF (0-2) Urine WBC Occ /HPF (0-4) Urine Squamous Epithelial Cells Occ /LPF Urine Bacteria 0 /HPF (0-FEW) Test 04/21/21 07:45 O2 Saturation 99 % (92-99) Arterial Blood pH 7.64 (7.35-7.45) Arterial Blood pCO2 at Patient Temp 24 mmHg (35-46) Arterial Blood pO2 at Patient Temp 210 mmHg (85-108) Arterial Blood HCO3 25 mmol/L (21-28) Arterial Blood Base Excess 5 mmol/L (-3-3) FiO2 50/vent PAUL CASTELLANOS MD Apr 21, 2021 10:19
[2021-04-21] MEDS ORDERED: IV NORMAL SALINE 1000ML BAG 1,000 ML IV ONE (10:45)
--- NOTE | 2021-04-21 11:08 | PN ---
DATE: 04/21/2021 SUBJECTIVE: The patient was transferred yesterday from [facility] with altered mental status, severe metabolic acidosis, hypothermia, acute renal failure, markedly elevated lactic acid, leukocytosis, AFib with rapid ventricular response and prolongation of the INR. Apparently, the patient went into respiratory failure secondary to severe metabolic acidosis. He was intubated and mechanically ventilated. He was seen in consultation by the physician ophthalmologist as well as the electrical hardware engineer and parking lot attendant as he went again into atrial fibrillation with rapid ventricular response that required cardioversion multiple times. He was treated actually with Cardizem drip while he was at [facility], that was discontinued and he was continued on a Cardizem drip; however, he was started on Levophed as well as vecuronium, amiodarone, fentanyl. When he has an NG tube placed, he started having blood coming out, so I did start him also on Protonix drip and unless he completed his continuous renal replacement therapy, a decision was made to start him on a heparin drip. He did receive also adenosine multiple times as well as digoxin. When I saw him this morning, the patient was intubated, sedated, mechanically ventilated and paralyzed. PHYSICAL EXAMINATION: VITAL SIGNS: His heart rate was 107, blood pressure was 110/78, temperature was 98.4, respiratory rate was 16 and oxygen saturation was 100% on FiO2 of 40%. HEAD, EYES, EARS, NOSE, AND THROAT: Normocephalic, atraumatic. He has orotracheal and orogastric tube in place. NECK: Supple. HEART: Showed normal first and second heart sounds. No gallop, rub or murmur. CHEST: Clear to auscultation. No crepitation or rhonchi. ABDOMEN: Distended, soft, nontender. NEUROLOGIC: He is heavily sedated, paralyzed. He has a right internal jugular triple lumen catheter as well as temporary hemodialysis catheter placed under ultrasound guidance. LABORATORY DATA: This morning showed a white cell count 7600, hemoglobin 13, hematocrit 39, MCV 89 and platelet count of 129,000. His blood gases done this morning showed a pH of 7.64, pCO2 of 24, pO2 of 110, bicarbonate 25 and oxygen saturation was 99% on FiO2 of 50%. His prothrombin time was 31.3, INR of 3.1. His chemistry this morning showed a serum sodium 145, potassium 3.3, chloride 107, bicarbonate 28, anion gap of 10, BUN 13, creatinine 1.4. Estimated GFR was 71 mL per minute. His glucose 143, calcium was 8.6, magnesium was 3.1 and phosphorus was 2.1. His urinalysis was unremarkable and his blood alcohol level was less than 10. Acetone level was negative. I did send blood for methyl alcohol and ethylene glycol. The results are still pending at the time of this dictation. ASSESSMENT: 1. Acute hypoxic respiratory failure, likely multifactorial due to severe metabolic acidosis. 2. Acute kidney injury. 3. Hyperkalemia. 4. Atrial fibrillation with rapid ventricular response, for which he is now on amiodarone. He was treated with adenosine, digoxin and he is on amiodarone drip. His heart rate is well controlled. 5. Hypothermia, resolved. He is on a warming blanket. PLAN: To obviously continue with mechanical ventilation and wean as tolerated. Continue with replacement therapy. His white cell count came down nicely from [id number]. We will obviously continue to monitor his urine output and kidney function. Continue with amiodarone drip as well as heparin drip and Protonix for GI prophylaxis. The input of the physician ophthalmologist, electrical hardware engineer, parking lot attendant is greatly appreciated. PARISH/PILAR DR: [place] TID: [id number]
--- NOTE | 2021-04-21 12:18 | PDOC ---
PROGRESS NOTES Date of Service DATE: 04/21/21 TIME: 12:14 Subjective Subjective Patient seen and examined Objective Objective Vital Signs Date Time Temp Pulse Resp B/P (MAP) Pulse Ox O2 Delivery O2 Flow Rate FiO2 04/21/21 11:17 112/74 04/21/21 11:02 99.3 99 16 99 Ventilator 99.3 04/21/21 10:17 3.0 Intake and Output 04/21/21 07:00 Intake Total 5418.76650 ml Output Total 4465 ml Balance 953.12635 ml Intake IV Total 5418.13854 ml Output Urine Total 3965 ml Gastric Drainage Total 500 ml Physical Exam Abdomen: Other (Mildly decreased bowel sounds.) Heart: Regular rate General: Other (Intubated and sedated) Lungs: Other (Decreased breath sounds) Assessment Assessment 1. Respiratory failure. The patient remains intubated on the ventilator. His status is mildly improved today. He is followed by the pulmonary service and will continue on ventilator support and antibiotics. 2. Acute kidney injury. Severely elevated potassium and creatinine. Patient has been on CRRT. Lab improved today with a potassium of 3.3, creatinine 1.4, magnesium of 3.5 and phosphorus of 2.1. Continue as per the renal service. 3. Patient was apparently found down at his facility. Possible use of K2. Continue supportive treatment as above. Neuro status questionable. 4. Atrial fibrillation with episodes of probable VT as well as severe tachy arrhythmias. Multiple cardioversions last evening. Earlier this morning the patient was rebolused with amiodarone and cardioverted. He has now remained in sinus rhythm for several hours. We will continue on amiodarone. Echocardiogram shows intact LV systolic function and no significant valvular abnormalities. Comment Review of Relevant I have reviewed the following items abdelrahman (where applicable) has been applied. Labs Laboratory Tests Test 04/20/21 05:55 04/20/21 06:00 04/20/21 08:33 04/20/21 09:00 White Blood Count 16.8 x10^3/uL (4.0-11.0) Red Blood Count 4.54 x10^6/uL (4.30-5.70) Hemoglobin 13.3 g/dL (13.0-17.5) Hematocrit 41.9 % (39.0-53.0) Mean Corpuscular Volume 92 fL (79-100) Mean Corpuscular Hemoglobin 29 pg (25-35) Mean Corpuscular Hemoglobin Concent 32 g/dL (31-37) Red Cell Distribution Width 15.0 % (11.5-14.5) Platelet Count 197 x10^3/uL (140-400) Sodium Level 141 mmol/L (136-145) Potassium Level 6.3 mmol/L (3.5-5.1) Chloride Level 102 mmol/L (98-107) Carbon Dioxide Level 6 mmol/L (21-32) Anion Gap 33 (6-14) Blood Urea Nitrogen 28 mg/dL (8-26) Creatinine 3.0 mg/dL (0.7-1.3) Estimated GFR (Cockcroft-Gault) 29.7 Glucose Level 50 mg/dL (70-99) Calcium Level 8.7 mg/dL (8.5-10.1) O2 Saturation 98 % (92-99) 99 % (92-99) Arterial Blood pH 7.41 (7.35-7.45) 7.19 (7.35-7.45) Arterial Blood pH (Temp corrected) 7.42 Arterial Blood pCO2 at Patient Temp 10 mmHg (35-46) 34 mmHg (35-46) Arterial Blood pCO2 (Temp correct) < 10 mmHg Arterial Blood pO2 at Patient Temp 134 mmHg (85-108) > 503 mmHg (85-108) Arterial Blood pO2 (Temp corrected) 126 mmHg Arterial Blood HCO3 6 mmol/L (21-28) 13 mmol/L (21-28) Arterial Blood Base Excess -15 mmol/L (-3-3) -15 mmol/L (-3-3) FiO2 32 100 Glucose (Fingerstick) 111 mg/dL (70-99) Oxyhemoglobin 98.2 % Methemoglobin 0.8 % (0.0-1.9) Carbon Monoxide, Quantitative 0.2 % (0.0-1.9) Test 04/20/21 09:55 04/20/21 10:01 04/20/21 14:50 04/20/21 18:00 White Blood Count 15.6 x10^3/uL (4.0-11.0) 9.9 x10^3/uL (4.0-11.0) Red Blood Count 4.27 x10^6/uL (4.30-5.70) 4.13 x10^6/uL (4.30-5.70) Hemoglobin 12.7 g/dL (13.0-17.5) 12.6 g/dL (13.0-17.5) Hematocrit 38.7 % (39.0-53.0) 37.0 % (39.0-53.0) Mean Corpuscular Volume 91 fL (79-100) 90 fL (79-100) Mean Corpuscular Hemoglobin 30 pg (25-35) 31 pg (25-35) Mean Corpuscular Hemoglobin Concent 33 g/dL (31-37) 34 g/dL (31-37) Red Cell Distribution Width 14.6 % (11.5-14.5) 14.4 % (11.5-14.5) Platelet Count 217 x10^3/uL (140-400) 158 x10^3/uL (140-400) Neutrophils (%) (Auto) 84 % (31-73) Lymphocytes (%) (Auto) 6 % (24-48) Monocytes (%) (Auto) 9 % (0-9) Eosinophils (%) (Auto) 1 % (0-3) Basophils (%) (Auto) 0 % (0-3) Neutrophils # (Auto) 13.0 x10^3/uL (1.8-7.7) Lymphocytes # (Auto) 1.0 x10^3/uL (1.0-4.8) Monocytes # (Auto) 1.4 x10^3/uL (0.0-1.1) Eosinophils # (Auto) 0.1 x10^3/uL (0.0-0.7) Basophils # (Auto) 0.0 x10^3/uL (0.0-0.2) Segmented Neutrophils % 72 % (35-66) Band Neutrophils % 13 % (0-9) Lymphocytes % 8 % (24-48) Monocytes % 7 % (0-10) Platelet Estimate Adequate (ADEQUATE) Prothrombin Time 22.4 SEC (11.7-14.0) 26.2 SEC (11.7-14.0) Prothromb Time International Ratio 2.0 (0.8-1.1) 2.5 (0.8-1.1) Activated Partial Thromboplast Time 27 SEC (24-38) Fibrinogen 204 mg/dL (200-440) D-Dimer (Farida) 0.54 ug/mlFEU (0.00-0.50) Sodium Level 146 mmol/L (136-145) 143 mmol/L (136-145) Potassium Level 6.0 mmol/L (3.5-5.1) 3.7 mmol/L (3.5-5.1) Chloride Level 105 mmol/L (98-107) 103 mmol/L (98-107) Carbon Dioxide Level 15 mmol/L (21-32) 25 mmol/L (21-32) Anion Gap 26 (6-14) 15 (6-14) Blood Urea Nitrogen 30 mg/dL (8-26) 22 mg/dL (8-26) Creatinine 3.4 mg/dL (0.7-1.3) 2.2 mg/dL (0.7-1.3) Estimated GFR (Cockcroft-Gault) 25.7 42.5 BUN/Creatinine Ratio 9 (6-20) 10 (6-20) Glucose Level 95 mg/dL (70-99) 223 mg/dL (70-99) Lactic Acid Level 10.4 mmol/L (0.4-2.0) 8.5 mmol/L (0.4-2.0) 7.1 mmol/L (0.4-2.0) Calcium Level 7.9 mg/dL (8.5-10.1) 7.3 mg/dL (8.5-10.1) Total Bilirubin 0.7 mg/dL (0.2-1.0) 0.7 mg/dL (0.2-1.0) Aspartate Amino Transf (AST/SGOT) 170 U/L (15-37) 246 U/L (15-37) Alanine Aminotransferase (ALT/SGPT) 61 U/L (16-63) 73 U/L (16-63) Alkaline Phosphatase 51 U/L (46-116) 49 U/L (46-116) Total Protein 5.5 g/dL (6.4-8.2) 5.2 g/dL (6.4-8.2) Albumin 3.2 g/dL (3.4-5.0) 3.0 g/dL (3.4-5.0) Albumin/Globulin Ratio 1.4 (1.0-1.7) 1.4 (1.0-1.7) Ethyl Alcohol Level < 10 mg/dL (0-10) Acetone Level Neg (NEG) Glucose (Fingerstick) 104 mg/dL (70-99) Ionized Calcium 0.91 mmol/L (1.13-1.32) Phosphorus Level 2.3 mg/dL (2.6-4.7) Magnesium Level 3.8 mg/dL (1.8-2.4) Test 04/20/21 21:25 04/20/21 21:26 04/20/21 23:59 04/21/21 01:48 Lactic Acid Level 6.8 mmol/L (0.4-2.0) Glucose (Fingerstick) 257 mg/dL (70-99) Sodium Level 143 mmol/L (136-145) Potassium Level 2.9 mmol/L (3.5-5.1) Chloride Level 102 mmol/L (98-107) Carbon Dioxide Level 28 mmol/L (21-32) Anion Gap 13 (6-14) Blood Urea Nitrogen 18 mg/dL (8-26) Creatinine 2.0 mg/dL (0.7-1.3) Estimated GFR (Cockcroft-Gault) 47.4 Glucose Level 290 mg/dL (70-99) Calcium Level 7.3 mg/dL (8.5-10.1) Phosphorus Level 1.2 mg/dL (2.6-4.7) Magnesium Level 3.5 mg/dL (1.8-2.4) Heparin Anti-Xa Act, Unfractionated 0.47 IU/mL (0.30-0.70) Test 04/21/21 06:20 04/21/21 06:40 04/21/21 07:45 White Blood Count 7.6 x10^3/uL (4.0-11.0) Red Blood Count 4.43 x10^6/uL (4.30-5.70) Hemoglobin 13.3 g/dL (13.0-17.5) Hematocrit 39.4 % (39.0-53.0) Mean Corpuscular Volume 89 fL (79-100) Mean Corpuscular Hemoglobin 30 pg (25-35) Mean Corpuscular Hemoglobin Concent 34 g/dL (31-37) Red Cell Distribution Width 14.3 % (11.5-14.5) Platelet Count 129 x10^3/uL (140-400) Neutrophils (%) (Auto) 77 % (31-73) Lymphocytes (%) (Auto) 17 % (24-48) Monocytes (%) (Auto) 6 % (0-9) Eosinophils (%) (Auto) 0 % (0-3) Basophils (%) (Auto) 0 % (0-3) Neutrophils # (Auto) 5.9 x10^3/uL (1.8-7.7) Lymphocytes # (Auto) 1.3 x10^3/uL (1.0-4.8) Monocytes # (Auto) 0.5 x10^3/uL (0.0-1.1) Eosinophils # (Auto) 0.0 x10^3/uL (0.0-0.7) Basophils # (Auto) 0.0 x10^3/uL (0.0-0.2) Prothrombin Time 31.3 SEC (11.7-14.0) Prothromb Time International Ratio 3.1 (0.8-1.1) Heparin Anti-Xa Act, Unfractionated 0.68 IU/mL (0.30-0.70) Sodium Level 145 mmol/L (136-145) Potassium Level 3.3 mmol/L (3.5-5.1) Chloride Level 107 mmol/L (98-107) Carbon Dioxide Level 28 mmol/L (21-32) Anion Gap 10 (6-14) Blood Urea Nitrogen 13 mg/dL (8-26) Creatinine 1.4 mg/dL (0.7-1.3) Estimated GFR (Cockcroft-Gault) 71.5 Glucose Level 143 mg/dL (70-99) Calcium Level 8.6 mg/dL (8.5-10.1) Phosphorus Level 2.1 mg/dL (2.6-4.7) Magnesium Level 3.5 mg/dL (1.8-2.4) Urine Collection Type Unknown Urine Color Yellow Urine Clarity Clear Urine pH 7.0 (<5.0-8.0) Urine Specific [place] <=1.005 (1.000-1.030) Urine Protein Negative mg/dL (NEG-TRACE) Urine Glucose (UA) Negative mg/dL (NEG) Urine Ketones (Stick) Trace mg/dL (NEG) Urine Blood Moderate (NEG) Urine Nitrite Negative (NEG) Urine Bilirubin Negative (NEG) Urine Urobilinogen Dipstick 0.2 mg/dL (0.2 mg/dL) Urine Leukocyte Esterase Negative (NEG) Urine RBC 1-2 /HPF (0-2) Urine WBC Occ /HPF (0-4) Urine Squamous Epithelial Cells Occ /LPF Urine Bacteria 0 /HPF (0-FEW) O2 Saturation 99 % (92-99) Arterial Blood pH 7.64 (7.35-7.45) Arterial Blood pCO2 at Patient Temp 24 mmHg (35-46) Arterial Blood pO2 at Patient Temp 210 mmHg (85-108) Arterial Blood HCO3 25 mmol/L (21-28) Arterial Blood Base Excess 5 mmol/L (-3-3) FiO2 50/vent Laboratory Tests Test 04/20/21 14:50 04/20/21 18:00 04/20/21 21:25 04/20/21 21:26 Lactic Acid Level 8.5 mmol/L (0.4-2.0) 7.1 mmol/L (0.4-2.0) 6.8 mmol/L (0.4-2.0) White Blood Count 9.9 x10^3/uL (4.0-11.0) Red Blood Count 4.13 x10^6/uL (4.30-5.70) Hemoglobin 12.6 g/dL (13.0-17.5) Hematocrit 37.0 % (39.0-53.0) Mean Corpuscular Volume 90 fL (79-100) Mean Corpuscular Hemoglobin 31 pg (25-35) Mean Corpuscular Hemoglobin Concent 34 g/dL (31-37) Red Cell Distribution Width 14.4 % (11.5-14.5) Platelet Count 158 x10^3/uL (140-400) Prothrombin Time 26.2 SEC (11.7-14.0) Prothromb Time International Ratio 2.5 (0.8-1.1) Sodium Level 143 mmol/L (136-145) Potassium Level 3.7 mmol/L (3.5-5.1) Chloride Level 103 mmol/L (98-107) Carbon Dioxide Level 25 mmol/L (21-32) Anion Gap 15 (6-14) Blood Urea Nitrogen 22 mg/dL (8-26) Creatinine 2.2 mg/dL (0.7-1.3) Estimated GFR (Cockcroft-Gault) 42.5 BUN/Creatinine Ratio 10 (6-20) Glucose Level 223 mg/dL (70-99) Calcium Level 7.3 mg/dL (8.5-10.1) Ionized Calcium 0.91 mmol/L (1.13-1.32) Phosphorus Level 2.3 mg/dL (2.6-4.7) Magnesium Level 3.8 mg/dL (1.8-2.4) Total Bilirubin 0.7 mg/dL (0.2-1.0) Aspartate Amino Transf (AST/SGOT) 246 U/L (15-37) Alanine Aminotransferase (ALT/SGPT) 73 U/L (16-63) Alkaline Phosphatase 49 U/L (46-116) Total Protein 5.2 g/dL (6.4-8.2) Albumin 3.0 g/dL (3.4-5.0) Albumin/Globulin Ratio 1.4 (1.0-1.7) Glucose (Fingerstick) 257 mg/dL (70-99) Test 04/20/21 23:59 04/21/21 01:48 04/21/21 06:20 04/21/21 06:40 Sodium Level 143 mmol/L (136-145) 145 mmol/L (136-145) Potassium Level 2.9 mmol/L (3.5-5.1) 3.3 mmol/L (3.5-5.1) Chloride Level 102 mmol/L (98-107) 107 mmol/L (98-107) Carbon Dioxide Level 28 mmol/L (21-32) 28 mmol/L (21-32) Anion Gap 13 (6-14) 10 (6-14) Blood Urea Nitrogen 18 mg/dL (8-26) 13 mg/dL (8-26) Creatinine 2.0 mg/dL (0.7-1.3) 1.4 mg/dL (0.7-1.3) Estimated GFR (Cockcroft-Gault) 47.4 71.5 Glucose Level 290 mg/dL (70-99) 143 mg/dL (70-99) Calcium Level 7.3 mg/dL (8.5-10.1) 8.6 mg/dL (8.5-10.1) Phosphorus Level 1.2 mg/dL (2.6-4.7) 2.1 mg/dL (2.6-4.7) Magnesium Level 3.5 mg/dL (1.8-2.4) 3.5 mg/dL (1.8-2.4) Heparin Anti-Xa Act, Unfractionated 0.47 IU/mL (0.30-0.70) 0.68 IU/mL (0.30-0.70) White Blood Count 7.6 x10^3/uL (4.0-11.0) Red Blood Count 4.43 x10^6/uL (4.30-5.70) Hemoglobin 13.3 g/dL (13.0-17.5) Hematocrit 39.4 % (39.0-53.0) Mean Corpuscular Volume 89 fL (79-100) Mean Corpuscular Hemoglobin 30 pg (25-35) Mean Corpuscular Hemoglobin Concent 34 g/dL (31-37) Red Cell Distribution Width 14.3 % (11.5-14.5) Platelet Count 129 x10^3/uL (140-400) Neutrophils (%) (Auto) 77 % (31-73) Lymphocytes (%) (Auto) 17 % (24-48) Monocytes (%) (Auto) 6 % (0-9) Eosinophils (%) (Auto) 0 % (0-3) Basophils (%) (Auto) 0 % (0-3) Neutrophils # (Auto) 5.9 x10^3/uL (1.8-7.7) Lymphocytes # (Auto) 1.3 x10^3/uL (1.0-4.8) Monocytes # (Auto) 0.5 x10^3/uL (0.0-1.1) Eosinophils # (Auto) 0.0 x10^3/uL (0.0-0.7) Basophils # (Auto) 0.0 x10^3/uL (0.0-0.2) Prothrombin Time 31.3 SEC (11.7-14.0) Prothromb Time International Ratio 3.1 (0.8-1.1) Urine Collection Type Unknown Urine Color Yellow Urine Clarity Clear Urine pH 7.0 (<5.0-8.0) Urine Specific [place] <=1.005 (1.000-1.030) Urine Protein Negative mg/dL (NEG-TRACE) Urine Glucose (UA) Negative mg/dL (NEG) Urine Ketones (Stick) Trace mg/dL (NEG) Urine Blood Moderate (NEG) Urine Nitrite Negative (NEG) Urine Bilirubin Negative (NEG) Urine Urobilinogen Dipstick 0.2 mg/dL (0.2 mg/dL) Urine Leukocyte Esterase Negative (NEG) Urine RBC 1-2 /HPF (0-2) Urine WBC Occ /HPF (0-4) Urine Squamous Epithelial Cells Occ /LPF Urine Bacteria 0 /HPF (0-FEW) Test 04/21/21 07:45 O2 Saturation 99 % (92-99) Arterial Blood pH 7.64 (7.35-7.45) Arterial Blood pCO2 at Patient Temp 24 mmHg (35-46) Arterial Blood pO2 at Patient Temp 210 mmHg (85-108) Arterial Blood HCO3 25 mmol/L (21-28) Arterial Blood Base Excess 5 mmol/L (-3-3) FiO2 50/vent Medications Current Medications Sodium Bicarbonate 100 meq/Dextrose 1,100 ml @ 60 mls/hr [id number] IV ; Start 04/20/21 at 03:30; Stop 04/20/21 at 05:54; Status DC Diltiazem HCl 125 mg/Sodium Chloride 125 ml @ 5 mls/hr CONT PRN IV PER PROTOCOL; Start 04/20/21 at 03:30 Sodium Chloride 1,000 ml @ 1,000 mls/hr 1X ONCE IV Last administered on 04/20/21at 05:45; Start 04/20/21 at 05:45; Stop 04/20/21 at 06:44; Status DC Sodium Bicarbonate 150 meq/Dextrose 1,150 ml @ 125 mls/hr Q9H12M IV Last administered on 04/20/21at 22:54; Start 04/20/21 at 06:00; Stop 04/21/21 at 01:01; Status DC Sodium Bicarbonate (Sodium Bicarb Adult 8.4% Syr) 50 meq STK-MED ONCE .ROUTE ; Start 04/20/21 at 07:47; Stop 04/20/21 at 07:47; Status DC Rocuronium [place] (Zemuron) 50 mg STK-MED ONCE .ROUTE ; Start 04/20/21 at 07:49; Stop 04/20/21 at 07:49; Status DC Sodium Bicarbonate (Sodium Bicarb Adult 8.4% Syr) 100 meq 1X ONCE IV Last administered on 04/20/21at 08:09; Start 04/20/21 at 08:00; Stop 04/20/21 at 08:01; Status DC Etomidate (Amidate) 20 mg STK-MED ONCE IV ; Start 04/20/21 at 07:49; Stop 1 at 07:50; Status DC Etomidate (Amidate) 20 mg STK-MED ONCE IV ; Start 04/20/21 at 07:54; Stop 04/20/21 at 07:54; Status DC Fentanyl Citrate 30 ml @ 2.5 mls/hr CONT PRN IV SEE PROTOCOL Last administered on 04/20/21at 10:17; Start 04/20/21 at 08:00; Stop 04/20/21 at 15:23; Status DC Midazolam HCl 100 ml @ 0 mls/hr CONT PRN IV SEE PROTOCOL Last administered on 04/21/21at 04:24; Start 04/20/21 at 08:00 Propofol 100 ml @ 2.865 mls/ hr CONT PRN IV PER PROTOCOL; Start 04/20/21 at 08:00 Glycerin/ Hypromellose/ Polyethylene (Artificial Tears) 1 drop PRN Q1HR PRN OU DRY EYE; Start 04/20/21 at 08:00 Midazolam HCl (Versed) 5 mg PRN 1X PRN IVP VENT INDUCTION; Start 04/20/21 at 08:00; Stop 04/21/21 at 07:59; Status DC Sodium Chloride 500 ml @ 500 mls/hr 1X PRN PRN IV SEE COMMENTS; Start 04/20/21 at 08:00 Atropine Sulfate (ATROPINE 0.5mg SYRINGE) 0.5 mg PRN Q5MIN PRN IV SEE COMMENTS; Start 04/20/21 at 08:00 Norepinephrine Bitartrate 8 mg/ Dextrose 258 ml @ 18.479 mls/ hr CONT PRN IV PER PROTOCOL Last administered on 04/20/21at 18:06; Start 04/20/21 at 08:00; Stop 04/20/21 at 20:35; Status DC Dextrose (Dextrose 50%-Water Syringe) 25 gm 1X ONCE IV Last administered on 04/20/21at 08:09; Start 04/20/21 at 08:15; Stop 04/20/21 at 08:16; Status DC Dextrose (Dextrose 50%-Water Syringe) 25 gm STK-MED ONCE IV ; Start 04/20/21 at 08:07; Stop 04/20/21 at 08:08; Status DC Pantoprazole Sodium 80 mg/ Sodium Chloride 100 ml @ 10 mls/hr Q10H IV Last administered on 04/21/21at 04:24; Start 04/20/21 at 09:00 Sodium Chloride 1,000 ml @ 1,000 mls/hr 1X ONCE IV Last administered on 04/20/21at 08:54; Start 04/20/21 at 09:00; Stop 04/20/21 at 09:59; Status DC Vecuronium [place] (Norcuron Bolus) 6 mg PRN Q6HRS PRN IV VENTILATOR COMPLIANCE Last administered on 04/20/21at 15:34; Start 04/20/21 at 11:00 Sodium Bicarbonate (Sodium Bicarb Adult 8.4% Syr) 100 meq Q2H IV Last administered on 04/20/21at 13:32; Start 04/20/21 at 13:00; Stop 04/20/21 at 15:01; Status DC Lidocaine HCl (Buffered Lidocaine 1%) 3 ml STK-MED ONCE .ROUTE ; Start 04/20/21 at 13:02; Stop 04/20/21 at 13:02; Status DC Lidocaine HCl (Buffered Lidocaine 1%) 6 ml 1X ONCE INJ Last administered on 04/20/21at 13:46; Start 04/20/21 at 13:45; Stop 04/20/21 at 13:46; Status DC Potassium Chloride 20 meq/ Magnesium Sulfate 15 meq/Calcium Chloride 5 meq/ Bicarbonate Dialysis Soln w/ out KCl 5,017.3214 ml @ 1,500 mls/hr Q3H21M IV Last administered on 04/20/21at 18:15; Start 04/20/21 at 15:00; Stop 04/20/21 at 19:13; Status DC Potassium Chloride 20 meq/ Magnesium Sulfate 15 meq/Calcium Chloride 5 meq/ Bicarbonate Dialysis Soln w/ out KCl 5,017.3214 ml @ 1,500 mls/hr Q3H21M IV Last administered on 04/20/21at 18:14; Start 04/20/21 at 15:00; Stop 04/20/21 at 19:13; Status DC Sodium Bicarbonate 150 meq/Dextrose 1,150 ml @ 500 mls/hr Q2H18M IV Last administered on 04/20/21at 22:43; Start 04/20/21 at 15:00; Stop 04/21/21 at 01:01; Status DC Fentanyl Citrate 55 ml @ 0 mls/hr CONT PRN IV SEE PROTOCOL Last administered on 04/21/21at 09:47; Start 04/20/21 at 14:15 Sodium Bicarbonate (Sodium Bicarb Adult 8.4% Syr) 100 meq 1X ONCE IV Last administered on 04/20/21at 15:10; Start 04/20/21 at 15:15; Stop 04/20/21 at 15:16; Status DC Amiodarone HCl 75 mg/Dextrose 101.5 ml @ 618 mls/hr 1X ONCE IV Last administered on 04/20/21at 15:44; Start 04/20/21 at 16:00; Stop 04/20/21 at 16:09; Status DC Amiodarone HCl 450 mg/Dextrose 259 ml @ 0 mls/hr CONT PRN IV SEE I/O RECORD Last administered on 04/21/21at 02:52; Start 04/20/21 at 15:30; Stop 04/21/21 at 15:30 Adenosine (Adenocard) 6 mg STK-MED ONCE IV ; Start 04/20/21 at 16:10; Stop 04/20/21 at 16:10; Status DC Adenosine (Adenocard) 6 mg STK-MED ONCE IV ; Start 04/20/21 at 16:15; Stop 04/20/21 at 16:16; Status DC Adenosine (Adenocard) 6 mg 1X ONCE IV Last administered on 04/20/21at 16:33; Start 04/20/21 at 16:30; Stop 04/20/21 at 16:31; Status DC Adenosine (Adenocard) 12 mg 1X ONCE IV Last administered on 04/20/21at 16:32; Start 04/20/21 at 16:30; Stop 04/20/21 at 16:31; Status DC Vecuronium [place] 50 mg/ Sodium Chloride 50 ml @ 4.584 mls/ hr CONT PRN IV PER PROTOCOL Last administered on 04/21/21at 11:30; Start 04/20/21 at 16:30 Heparin Sodium/ Dextrose 250 ml @ 10 mls/hr CONT PRN IV PER PROTOCOL Last administered on 04/20/21at 19:32; Start 04/20/21 at 19:15; Stop 04/21/21 at 10:48; Status DC Heparin Sodium (Porcine) (Heparin Sodium) 2,400 unit PRN Q6HRS PRN IV FOR UFH LEVEL LESS THAN 0.2; Start 04/20/21 at 19:15; Stop 04/21/21 at 10:48; Status DC Potassium Chloride 20 meq/ Magnesium Sulfate 2.5 meq/Calcium Chloride 5 meq/ Bicarbonate Dialysis Soln w/ out KCl 5,014.1964 ml @ 1,500 mls/hr Q3H21M IV Last administered on 04/21/21at 07:03; Start 04/20/21 at 21:00; Stop 04/21/21 at 11:07; Status DC Potassium Chloride 20 meq/ Magnesium Sulfate 2.5 meq/Calcium Chloride 5 meq/ Bicarbonate Dialysis Soln w/ out KCl 5,014.1964 ml @ 1,500 mls/hr Q3H21M IV Last administered on 04/21/21at 07:03; Start 04/20/21 at 21:00; Stop 04/21/21 at 11:07; Status DC Epinephrine HCl 5 mg/Sodium Chloride 255 ml @ 29.223 mls/ hr CONT PRN IV SEE I/O RECORD; Start 04/20/21 at 20:30 Norepinephrine Bitartrate 32 mg/ Dextrose 250 ml @ 4.453 mls/ hr CONT PRN IV SEE I/O RECORD Last administered on 04/21/21at 07:21; Start 04/20/21 at 20:45 Digoxin (Lanoxin) 250 mcg 1X ONCE IV Last administered on 04/20/21at 21:54; Start 04/20/21 at 21:45; Stop 04/20/21 at 21:47; Status DC Digoxin (Lanoxin) 250 mcg 1X ONCE IV Last administered on 04/20/21at 22:35; Start 04/20/21 at 22:15; Stop 04/20/21 at 22:16; Status DC Amiodarone HCl 300 mg/Dextrose 106 ml @ 618 mls/hr 1X ONCE IV Last administered on 04/20/21at 23:43; Start 04/20/21 at 23:30; Stop 04/20/21 at 23:40; Status DC Digoxin (Lanoxin) 250 mcg 1X ONCE IV ; Start 04/21/21 at 04:30; Stop 04/21/21 at 04:32; Status DC Potassium Phosphate 13.3 mmol/Sodium Chloride 104.4333 ml @ 100 mls/hr Q1H IV Last administered on 04/21/21at 04:48; Start 04/21/21 at 02:00; Stop 04/21/21 at 04:59; Status DC Potassium Chloride 20 meq/ Magnesium Sulfate 2.5 meq/Calcium Chloride 5 meq/ Bicarbonate Dialysis Soln w/ out KCl 5,014.1964 ml @ 1,500 mls/hr Q3H21M IV Last administered on 04/21/21at 01:44; Start 04/21/21 at 01:45; Stop 04/21/21 at 11:07; Status DC Sodium Chloride 1,000 ml @ 200 mls/hr Q5H ONCE IV Last administered on 04/21/21at 11:10; Start 04/21/21 at 10:45; Stop 04/21/21 at 15:44 Vitals/I & O Vital Sign - Last 24 Hours 04/20/21 04/20/21 04/20/21 04/20/21 13:00 14:00 15:00 15:09 Temp 99.1 99.4 99.5 99.1 99.4 99.5 Pulse 132 132 120 Resp 30 32 38 30 B/P (MAP) 106/56 121/62 126/65 Pulse Ox 98 99 99 99 O2 Delivery Ventilator Ventilator Ventilator Ventilator 04/20/21 04/20/21 04/20/21 04/20/21 15:35 15:44 16:00 16:00 Temp 98.6 98.6 Pulse 121 124 Resp 30 B/P (MAP) 123/67 134/70 Pulse Ox 98 100 O2 Delivery Ventilator Mechanical Ventilator Ventilator 04/20/21 04/20/21 04/20/21 04/20/21 16:33 17:00 17:36 18:00 Temp 97.7 97.0 97.7 97.0 Pulse 121 122 Resp 30 30 30 B/P (MAP) 129/72 118/68 Pulse Ox 30 100 100 100 O2 Delivery Ventilator Ventilator Ventilator Ventilator 04/20/21 04/20/21 04/20/21 04/20/21 19:00 20:00 20:00 20:13 Temp 96.4 96.1 96.4 96.1 Pulse 96 88 Resp 30 30 B/P (MAP) 104/62 97/51 Pulse Ox 99 99 99 O2 Delivery Ventilator Ventilator Mechanical Ventilator Ventilator 04/20/21 04/20/21 04/20/21 04/20/21 21:00 21:10 21:15 21:20 Temp 95.7 95.7 95.7 95.7 95.7 95.7 95.7 95.7 Pulse 118 172 172 170 Resp 30 30 30 30 B/P (MAP) 126/70 118/80 107/73 126/70 Pulse Ox 100 100 99 99 O2 Delivery Ventilator Ventilator Ventilator Ventilator 04/20/21 04/20/21 04/20/21 04/20/21 21:25 21:30 21:35 21:45 Temp 95.7 95.7 95.7 95.7 95.7 95.7 95.7 95.7 Pulse 150 160 160 162 Resp 30 30 30 30 B/P (MAP) 95/54 91/57 108/58 107/60 Pulse Ox 99 99 100 99 O2 Delivery Ventilator Ventilator Ventilator Ventilator 04/20/21 04/20/21 04/20/21 04/20/21 21:54 22:00 22:00 22:20 Temp 96.1 96.1 96.1 96.1 Pulse 164 158 148 Resp 30 30 B/P (MAP) 92/54 105/64 79/63 Pulse Ox 99 99 99 O2 Delivery Ventilator Ventilator Ventilator 04/20/21 04/20/21 04/20/21 04/20/21 22:35 22:35 23:00 23:15 Temp 96.8 96.8 97.4 96.8 96.8 97.4 Pulse 169 168 156 169 Resp 30 30 30 B/P (MAP) 124/63 137/80 111/80 85/59 Pulse Ox 99 100 99 O2 Delivery Ventilator Ventilator Ventilator 04/20/21 04/20/21 04/20/21 04/21/21 23:30 23:43 23:59 00:00 Temp 97.5 97.9 97.5 97.9 Pulse 168 162 152 Resp 30 30 B/P (MAP) 137/80 102/78 119/71 Pulse Ox 99 100 O2 Delivery Ventilator Mechanical Ventilator Ventilator 04/21/21 04/21/21 04/21/21 04/21/21 00:00 00:25 01:00 02:00 Temp 98.0 98.2 98.2 98.0 98.2 98.2 Pulse 129 124 122 Resp 30 30 30 B/P (MAP) 137/87 102/73 102/65 Pulse Ox 100 100 100 100 O2 Delivery Ventilator Ventilator Ventilator Ventilator 04/21/21 04/21/21 04/21/21 04/21/21 02:30 03:00 03:30 03:45 Temp 97.9 97.5 97.5 97.9 97.5 97.5 Pulse 122 120 120 Resp 30 30 30 B/P (MAP) 110/61 112/62 108/77 Pulse Ox 100 100 100 100 O2 Delivery Ventilator Ventilator Ventilator Ventilator 04/21/21 04/21/21 04/21/21 04/21/21 04:00 04:00 04:15 04:45 Temp 97.5 97.5 97.2 97.5 97.5 97.2 Pulse 120 118 116 Resp 30 30 30 B/P (MAP) 114/69 128/70 115/77 Pulse Ox 100 100 100 O2 Delivery Mechanical Ventilator Ventilator Ventilator Ventilator 04/21/21 04/21/21 04/21/21 04/21/21 05:00 05:00 06:00 06:05 Temp 98.2 97.2 97.2 98.2 97.2 97.2 Pulse 114 110 120 Resp 30 30 30 B/P (MAP) 103/63 163/91 157/98 Pulse Ox 100 100 100 100 O2 Delivery Ventilator Ventilator Ventilator Ventilator 04/21/21 04/21/21 04/21/21 04/21/21 06:20 06:25 07:00 07:44 Temp 97.2 97.3 98.2 97.2 97.3 98.2 Pulse 102 112 108 Resp 30 30 30 B/P (MAP) 102/59 119/62 111/67 Pulse Ox 100 100 100 100 O2 Delivery Ventilator Ventilator Ventilator Ventilator 04/21/21 04/21/21 04/21/21 04/21/21 08:15 08:19 08:58 09:02 Temp 98.4 98.8 98.4 98.8 Pulse 107 106 Resp 16 16 B/P (MAP) 110/78 96/63 96/65 Pulse Ox 100 99 O2 Delivery Ventilator Mechanical Ventilator Ventilator 04/21/21 04/21/21 04/21/21 04/21/21 09:47 09:57 10:09 10:17 Temp 98.4 98.4 Pulse 100 Resp 16 16 B/P (MAP) 93/60 Pulse Ox 100 100 100 99 O2 Delivery Ventilator Ventilator Ventilator O2 Flow Rate 3.0 3.0 04/21/21 04/21/21 04/21/21 04/21/21 10:31 10:43 11:02 11:12 Temp 99.3 99.3 Pulse 99 Resp 16 B/P (MAP) 76/52 142/81 113/83 131/81 Pulse Ox 99 O2 Delivery Ventilator 04/21/21 11:17 B/P (MAP) 112/74 Intake and Output 04/20/21 04/20/21 04/21/21 15:00 23:00 07:00 Intake Total 789 ml 4629.78404 ml Output Total 640 ml 1560 ml 2265 ml Balance -640 ml -771 ml 2364.63040 ml Justifications for Admission Other Justification KARENA CROSS MD Apr 21, 2021 12:18
[2021-04-21 16:08] LABS: CALCIUM 8.5 mg/dL (8.5-10.1); CREATININE 1.8 mg/dL (0.7-1.3); GFR 53.5; MAGNESIUM 3.2 mg/dL (1.8-2.4); PHOSPHORUS 1.7 mg/dL (2.6-4.7)
--- NOTE | 2021-04-21 17:05 | NUR ---
This RN relayed [address] Soler. Per Dr. Soler, no dialysis tonight and will reassess tomorrow.
[2021-04-21] MEDS ORDERED: AMIODARONE 450 MG in IV DEXTROSE 5% 250 ML IV PRN (19:30)
[2021-04-22] VITALS (26 sets, daily range): BP systolic 75–144; BP diastolic 56–94
[2021-04-22] MEDS: NORCURON - VECURONIUM 50 MG in IV NORMAL SALINE 50ML 50 ML IV PRN (02:04)
[2021-04-22] MEDS: PANTOPRAZOLE SODIUM IV DRIP 80 MG in IV NORMAL SALINE 100ML 100 ML IV SCH ×3 (02:04→21:47)
[2021-04-22] MEDS: MIDAZOLAM 100mg/100ml NS BAG 100 ML IV PRN ×2 (02:05→11:06)
[2021-04-22] MEDS: fentaNYL HIGH DOSE PCA 55 ML IV PRN (03:45)
--- NOTE | 2021-04-22 05:50 | PDOC ---
PULMONARY PROGRESS NOTES DATE: 04/22/21 TIME: 05:49 Subjective on vent sedated on versed fentanyl on vec gtt peep 5 fio2 50% crrt stopped 04/21 no arrythmias over night on amio gtt now nsr on protonix gtt on levo Vitals Vital Signs Date Time Temp Pulse Resp B/P (MAP) Pulse Ox O2 Delivery O2 Flow Rate FiO2 04/22/21 02:11 99 Ventilator 04/21/21 18:06 99.5 103 16 111/74 99.5 04/21/21 10:17 3.0 Comments on vent sedated HEENT: Other (nc at orally intubated nose clear ) Lungs: Crackles Cardiovascular: S1, S2 Abdomen: Soft Extremities: Other Skin: Warm Labs Laboratory Tests Test 04/20/21 05:55 04/20/21 06:00 04/20/21 08:33 04/20/21 09:00 White Blood Count 16.8 x10^3/uL (4.0-11.0) Red Blood Count 4.54 x10^6/uL (4.30-5.70) Hemoglobin 13.3 g/dL (13.0-17.5) Hematocrit 41.9 % (39.0-53.0) Mean Corpuscular Volume 92 fL (79-100) Mean Corpuscular Hemoglobin 29 pg (25-35) Mean Corpuscular Hemoglobin Concent 32 g/dL (31-37) Red Cell Distribution Width 15.0 % (11.5-14.5) Platelet Count 197 x10^3/uL (140-400) Sodium Level 141 mmol/L (136-145) Potassium Level 6.3 mmol/L (3.5-5.1) Chloride Level 102 mmol/L (98-107) Carbon Dioxide Level 6 mmol/L (21-32) Anion Gap 33 (6-14) Blood Urea Nitrogen 28 mg/dL (8-26) Creatinine 3.0 mg/dL (0.7-1.3) Estimated GFR (Cockcroft-Gault) 29.7 Glucose Level 50 mg/dL (70-99) Calcium Level 8.7 mg/dL (8.5-10.1) O2 Saturation 98 % (92-99) 99 % (92-99) Arterial Blood pH 7.41 (7.35-7.45) 7.19 (7.35-7.45) Arterial Blood pH (Temp corrected) 7.42 Arterial Blood pCO2 at Patient Temp 10 mmHg (35-46) 34 mmHg (35-46) Arterial Blood pCO2 (Temp correct) < 10 mmHg Arterial Blood pO2 at Patient Temp 134 mmHg (85-108) > 503 mmHg (85-108) Arterial Blood pO2 (Temp corrected) 126 mmHg Arterial Blood HCO3 6 mmol/L (21-28) 13 mmol/L (21-28) Arterial Blood Base Excess -15 mmol/L (-3-3) -15 mmol/L (-3-3) FiO2 32 100 Glucose (Fingerstick) 111 mg/dL (70-99) Oxyhemoglobin 98.2 % Methemoglobin 0.8 % (0.0-1.9) Carbon Monoxide, Quantitative 0.2 % (0.0-1.9) Test 04/20/21 09:55 04/20/21 10:01 04/20/21 14:50 04/20/21 18:00 White Blood Count 15.6 x10^3/uL (4.0-11.0) 9.9 x10^3/uL (4.0-11.0) Red Blood Count 4.27 x10^6/uL (4.30-5.70) 4.13 x10^6/uL (4.30-5.70) Hemoglobin 12.7 g/dL (13.0-17.5) 12.6 g/dL (13.0-17.5) Hematocrit 38.7 % (39.0-53.0) 37.0 % (39.0-53.0) Mean Corpuscular Volume 91 fL (79-100) 90 fL (79-100) Mean Corpuscular Hemoglobin 30 pg (25-35) 31 pg (25-35) Mean Corpuscular Hemoglobin Concent 33 g/dL (31-37) 34 g/dL (31-37) Red Cell Distribution Width 14.6 % (11.5-14.5) 14.4 % (11.5-14.5) Platelet Count 217 x10^3/uL (140-400) 158 x10^3/uL (140-400) Neutrophils (%) (Auto) 84 % (31-73) Lymphocytes (%) (Auto) 6 % (24-48) Monocytes (%) (Auto) 9 % (0-9) Eosinophils (%) (Auto) 1 % (0-3) Basophils (%) (Auto) 0 % (0-3) Neutrophils # (Auto) 13.0 x10^3/uL (1.8-7.7) Lymphocytes # (Auto) 1.0 x10^3/uL (1.0-4.8) Monocytes # (Auto) 1.4 x10^3/uL (0.0-1.1) Eosinophils # (Auto) 0.1 x10^3/uL (0.0-0.7) Basophils # (Auto) 0.0 x10^3/uL (0.0-0.2) Segmented Neutrophils % 72 % (35-66) Band Neutrophils % 13 % (0-9) Lymphocytes % 8 % (24-48) Monocytes % 7 % (0-10) Platelet Estimate Adequate (ADEQUATE) Prothrombin Time 22.4 SEC (11.7-14.0) 26.2 SEC (11.7-14.0) Prothromb Time International Ratio 2.0 (0.8-1.1) 2.5 (0.8-1.1) Activated Partial Thromboplast Time 27 SEC (24-38) Fibrinogen 204 mg/dL (200-440) D-Dimer (Farida) 0.54 ug/mlFEU (0.00-0.50) Sodium Level 146 mmol/L (136-145) 143 mmol/L (136-145) Potassium Level 6.0 mmol/L (3.5-5.1) 3.7 mmol/L (3.5-5.1) Chloride Level 105 mmol/L (98-107) 103 mmol/L (98-107) Carbon Dioxide Level 15 mmol/L (21-32) 25 mmol/L (21-32) Anion Gap 26 (6-14) 15 (6-14) Blood Urea Nitrogen 30 mg/dL (8-26) 22 mg/dL (8-26) Creatinine 3.4 mg/dL (0.7-1.3) 2.2 mg/dL (0.7-1.3) Estimated GFR (Cockcroft-Gault) 25.7 42.5 BUN/Creatinine Ratio 9 (6-20) 10 (6-20) Glucose Level 95 mg/dL (70-99) 223 mg/dL (70-99) Lactic Acid Level 10.4 mmol/L (0.4-2.0) 8.5 mmol/L (0.4-2.0) 7.1 mmol/L (0.4-2.0) Calcium Level 7.9 mg/dL (8.5-10.1) 7.3 mg/dL (8.5-10.1) Total Bilirubin 0.7 mg/dL (0.2-1.0) 0.7 mg/dL (0.2-1.0) Aspartate Amino Transf (AST/SGOT) 170 U/L (15-37) 246 U/L (15-37) Alanine Aminotransferase (ALT/SGPT) 61 U/L (16-63) 73 U/L (16-63) Alkaline Phosphatase 51 U/L (46-116) 49 U/L (46-116) Total Protein 5.5 g/dL (6.4-8.2) 5.2 g/dL (6.4-8.2) Albumin 3.2 g/dL (3.4-5.0) 3.0 g/dL (3.4-5.0) Albumin/Globulin Ratio 1.4 (1.0-1.7) 1.4 (1.0-1.7) Ethyl Alcohol Level < 10 mg/dL (0-10) Acetone Level Neg (NEG) Glucose (Fingerstick) 104 mg/dL (70-99) Ionized Calcium 0.91 mmol/L (1.13-1.32) Phosphorus Level 2.3 mg/dL (2.6-4.7) Magnesium Level 3.8 mg/dL (1.8-2.4) Test 04/20/21 21:25 04/20/21 21:26 04/20/21 23:59 04/21/21 01:48 Lactic Acid Level 6.8 mmol/L (0.4-2.0) Glucose (Fingerstick) 257 mg/dL (70-99) Sodium Level 143 mmol/L (136-145) Potassium Level 2.9 mmol/L (3.5-5.1) Chloride Level 102 mmol/L (98-107) Carbon Dioxide Level 28 mmol/L (21-32) Anion Gap 13 (6-14) Blood Urea Nitrogen 18 mg/dL (8-26) Creatinine 2.0 mg/dL (0.7-1.3) Estimated GFR (Cockcroft-Gault) 47.4 Glucose Level 290 mg/dL (70-99) Calcium Level 7.3 mg/dL (8.5-10.1) Phosphorus Level 1.2 mg/dL (2.6-4.7) Magnesium Level 3.5 mg/dL (1.8-2.4) Heparin Anti-Xa Act, Unfractionated 0.47 IU/mL (0.30-0.70) Test 04/21/21 06:20 04/21/21 06:40 04/21/21 07:45 04/21/21 15:50 White Blood Count 7.6 x10^3/uL (4.0-11.0) Red Blood Count 4.43 x10^6/uL (4.30-5.70) Hemoglobin 13.3 g/dL (13.0-17.5) Hematocrit 39.4 % (39.0-53.0) Mean Corpuscular Volume 89 fL (79-100) Mean Corpuscular Hemoglobin 30 pg (25-35) Mean Corpuscular Hemoglobin Concent 34 g/dL (31-37) Red Cell Distribution Width 14.3 % (11.5-14.5) Platelet Count 129 x10^3/uL (140-400) Neutrophils (%) (Auto) 77 % (31-73) Lymphocytes (%) (Auto) 17 % (24-48) Monocytes (%) (Auto) 6 % (0-9) Eosinophils (%) (Auto) 0 % (0-3) Basophils (%) (Auto) 0 % (0-3) Neutrophils # (Auto) 5.9 x10^3/uL (1.8-7.7) Lymphocytes # (Auto) 1.3 x10^3/uL (1.0-4.8) Monocytes # (Auto) 0.5 x10^3/uL (0.0-1.1) Eosinophils # (Auto) 0.0 x10^3/uL (0.0-0.7) Basophils # (Auto) 0.0 x10^3/uL (0.0-0.2) Prothrombin Time 31.3 SEC (11.7-14.0) Prothromb Time International Ratio 3.1 (0.8-1.1) Heparin Anti-Xa Act, Unfractionated 0.68 IU/mL (0.30-0.70) Sodium Level 145 mmol/L (136-145) 153 mmol/L (136-145) Potassium Level 3.3 mmol/L (3.5-5.1) 4.0 mmol/L (3.5-5.1) Chloride Level 107 mmol/L (98-107) 114 mmol/L (98-107) Carbon Dioxide Level 28 mmol/L (21-32) 31 mmol/L (21-32) Anion Gap 10 (6-14) 8 (6-14) Blood Urea Nitrogen 13 mg/dL (8-26) 12 mg/dL (8-26) Creatinine 1.4 mg/dL (0.7-1.3) 1.8 mg/dL (0.7-1.3) Estimated GFR (Cockcroft-Gault) 71.5 53.5 Glucose Level 143 mg/dL (70-99) 120 mg/dL (70-99) Calcium Level 8.6 mg/dL (8.5-10.1) 8.5 mg/dL (8.5-10.1) Phosphorus Level 2.1 mg/dL (2.6-4.7) 1.7 mg/dL (2.6-4.7) Magnesium Level 3.5 mg/dL (1.8-2.4) 3.2 mg/dL (1.8-2.4) Urine Collection Type Unknown Urine Color Yellow Urine Clarity Clear Urine pH 7.0 (<5.0-8.0) Urine Specific [place] <=1.005 (1.000-1.030) Urine Protein Negative mg/dL (NEG-TRACE) Urine Glucose (UA) Negative mg/dL (NEG) Urine Ketones (Stick) Trace mg/dL (NEG) Urine Blood Moderate (NEG) Urine Nitrite Negative (NEG) Urine Bilirubin Negative (NEG) Urine Urobilinogen Dipstick 0.2 mg/dL (0.2 mg/dL) Urine Leukocyte Esterase Negative (NEG) Urine RBC 1-2 /HPF (0-2) Urine WBC Occ /HPF (0-4) Urine Squamous Epithelial Cells Occ /LPF Urine Bacteria 0 /HPF (0-FEW) O2 Saturation 99 % (92-99) Arterial Blood pH 7.64 (7.35-7.45) Arterial Blood pCO2 at Patient Temp 24 mmHg (35-46) Arterial Blood pO2 at Patient Temp 210 mmHg (85-108) Arterial Blood HCO3 25 mmol/L (21-28) Arterial Blood Base Excess 5 mmol/L (-3-3) FiO2 50/vent Laboratory Tests Test 04/21/21 06:20 04/21/21 06:40 04/21/21 07:45 04/21/21 15:50 White Blood Count 7.6 x10^3/uL (4.0-11.0) Red Blood Count 4.43 x10^6/uL (4.30-5.70) Hemoglobin 13.3 g/dL (13.0-17.5) Hematocrit 39.4 % (39.0-53.0) Mean Corpuscular Volume 89 fL (79-100) Mean Corpuscular Hemoglobin 30 pg (25-35) Mean Corpuscular Hemoglobin Concent 34 g/dL (31-37) Red Cell Distribution Width 14.3 % (11.5-14.5) Platelet Count 129 x10^3/uL (140-400) Neutrophils (%) (Auto) 77 % (31-73) Lymphocytes (%) (Auto) 17 % (24-48) Monocytes (%) (Auto) 6 % (0-9) Eosinophils (%) (Auto) 0 % (0-3) Basophils (%) (Auto) 0 % (0-3) Neutrophils # (Auto) 5.9 x10^3/uL (1.8-7.7) Lymphocytes # (Auto) 1.3 x10^3/uL (1.0-4.8) Monocytes # (Auto) 0.5 x10^3/uL (0.0-1.1) Eosinophils # (Auto) 0.0 x10^3/uL (0.0-0.7) Basophils # (Auto) 0.0 x10^3/uL (0.0-0.2) Prothrombin Time 31.3 SEC (11.7-14.0) Prothromb Time International Ratio 3.1 (0.8-1.1) Heparin Anti-Xa Act, Unfractionated 0.68 IU/mL (0.30-0.70) Sodium Level 145 mmol/L (136-145) 153 mmol/L (136-145) Potassium Level 3.3 mmol/L (3.5-5.1) 4.0 mmol/L (3.5-5.1) Chloride Level 107 mmol/L (98-107) 114 mmol/L (98-107) Carbon Dioxide Level 28 mmol/L (21-32) 31 mmol/L (21-32) Anion Gap 10 (6-14) 8 (6-14) Blood Urea Nitrogen 13 mg/dL (8-26) 12 mg/dL (8-26) Creatinine 1.4 mg/dL (0.7-1.3) 1.8 mg/dL (0.7-1.3) Estimated GFR (Cockcroft-Gault) 71.5 53.5 Glucose Level 143 mg/dL (70-99) 120 mg/dL (70-99) Calcium Level 8.6 mg/dL (8.5-10.1) 8.5 mg/dL (8.5-10.1) Phosphorus Level 2.1 mg/dL (2.6-4.7) 1.7 mg/dL (2.6-4.7) Magnesium Level 3.5 mg/dL (1.8-2.4) 3.2 mg/dL (1.8-2.4) Urine Collection Type Unknown Urine Color Yellow Urine Clarity Clear Urine pH 7.0 (<5.0-8.0) Urine Specific [place] <=1.005 (1.000-1.030) Urine Protein Negative mg/dL (NEG-TRACE) Urine Glucose (UA) Negative mg/dL (NEG) Urine Ketones (Stick) Trace mg/dL (NEG) Urine Blood Moderate (NEG) Urine Nitrite Negative (NEG) Urine Bilirubin Negative (NEG) Urine Urobilinogen Dipstick 0.2 mg/dL (0.2 mg/dL) Urine Leukocyte Esterase Negative (NEG) Urine RBC 1-2 /HPF (0-2) Urine WBC Occ /HPF (0-4) Urine Squamous Epithelial Cells Occ /LPF Urine Bacteria 0 /HPF (0-FEW) O2 Saturation 99 % (92-99) Arterial Blood pH 7.64 (7.35-7.45) Arterial Blood pCO2 at Patient Temp 24 mmHg (35-46) Arterial Blood pO2 at Patient Temp 210 mmHg (85-108) Arterial Blood HCO3 25 mmol/L (21-28) Arterial Blood Base Excess 5 mmol/L (-3-3) FiO2 50/vent Comments cxr reviewed ett ok l atelectasis Impression . IMPRESSION: 1. Acute respiratory failure, multifactorial, mainly related to severe metabolic acidosis and renal failure. 2. Metabolic acidosis related to renal failure and toxic ingestion of K2. 3. Severe metabolic acidosis per Nephrology. 4. Toxic encephalopathy. 5. Abnormal x-ray, compatible with left lower lobe infiltrate, possible pneumonia. 6. Acute renal failure. 7. Lactic acidosis. 8. Atrial fibrillation/svt v tach. 9. Protein malnutrition, present upon admission. Plan . updated 04/22 1. cont vent support setting reviewed abg change vent setting per abg 2. Follow Nephrology input. close monitoring of mg k crrt stopped 04/21 hd per nephro 3. Empiric antibiotics. 4. DVT prophylaxis. 5. protonix gtt 6. amio gtt per cardiology 7. will do uds 8. pressors to keep map 65 prognosis poor discussed w rn, rt critically ill cct 30 min no overlap PLAN: 1. cont vent support setting reviewed abg reviewed decrease rr to 16 fio2 to 40% 2. Follow Nephrology input. crrt close monitoring of mg k 3. Empiric antibiotics. 4. DVT prophylaxis. 5. protonix gtt 6. amio gtt per cardiology 7. will do uds prognosis poor discussed w rn, rt critically ill cct 30 min no overlap LONG FRENCH MD Apr 22, 2021 05:50
--- NOTE | 2021-04-22 06:16 | RAD ---
XR CHEST 1V 04/22/2021 5:12 AM INDICATION: Respiratory failure COMPARISON: 04/21/2021 TECHNIQUE: Portable frontal view of the chest is provided. FINDINGS: The cardiomediastinal silhouette is within normal limits. Lungs are clear. Endotracheal tube and naso gastric tube are in similar position. Right IJ central venous catheter is in similar position. There are no significant pleural effusions. There is no pulmonary vascular congestion. No pneumothora x. No suspicious osseous abnormality. IMPRESSION: Aeration of the lungs appears similar to the prior examination. Support lines and tubes are in simila r position. Electronically signed by: Arabella Santana MD (04/22/2021 6:13 AM) LUDY
[2021-04-22 07:10] LABS: HEMATOCRIT 40.9 % (39.0-53.0); HEMOGLOBIN 13.7 g/dL (13.0-17.5); RED BLOOD COUNT 4.54 x10^6/uL (4.30-5.70); RED CELL DISTRIBUTION WIDTH 14.4 % (11.5-14.5); WHITE BLOOD COUNT 6.6 x10^3/uL (4.0-11.0)
[2021-04-22 07:30] LABS: ALBUMIN 2.6 g/dL (3.4-5.0); ALBUMIN/GLOBULIN RATIO 1.1 (1.0-1.7); CALCIUM 8.4 mg/dL (8.5-10.1); CREATININE 2.5 mg/dL (0.7-1.3); GFR 36.6; POTASSIUM 3.6 mmol/L (3.5-5.1)
[2021-04-22 07:57] LABS: BASE EXCESS ABG -1 mmol/L (-3-3); HCO3 ABG 23 mmol/L (21-28); PCO2 ABG 36 mmHg (35-46); PO2 ABG 150 mmHg (85-108); SAT O2 ABG 99 % (92-99)
[2021-04-22 08:14] LABS: FIO2 ABG 40/VENT
[2021-04-22] MEDS: IV DEXTROSE 5% 1,000 ML IV PRN ×3 (08:47→23:17)
[2021-04-22] MEDS ORDERED: POTASSIUM PHOS,M-BASIC-D-BASIC 15 MMOL in IV NORMAL SALINE 100ML 100 ML IV PRN (09:00)
--- NOTE | 2021-04-22 09:02 | PN ---
DATE: 04/22/2021 SUBJECTIVE: The patient continues to be paralyzed, sedated, intubated and mechanically ventilated. He is off continuous replacement therapy. He continues to be on vecuronium and Levophed as well as amiodarone and fentanyl drip. PHYSICAL EXAMINATION: GENERAL: When I examined him, he looked well and was clearly in no apparent respiratory distress. No pallor, jaundice, cyanosis or thyromegaly. No jugular venous distention. No limb edema. VITAL SIGNS: His heart rate was 103, blood pressure was 85/70, temperature was 99.5, respiratory rate was 16, his oxygen saturation was 100% on FiO2 of 40%. HEAD, EYES, EARS, NOSE, AND THROAT: Showed normocephalic, atraumatic. He has orotracheal and orogastric tube. NECK: Supple. HEART: Showed normal first and second heart sounds, no gallop, rub or murmur. CHEST: Shows central trachea, equal bilateral chest expansion, air entry, vesicular breath sounds, no crepitation or rhonchi. ABDOMEN: Distended, soft, nontender. NEUROLOGIC: He is paralyzed, heavily sedated. His intake over the last 24 hours was 5400, output was 4465. LABORATORY DATA: This morning showed a white cell count of 6600, hemoglobin 13.7, hematocrit 40, MCV 98 and platelet count of 87,000. His prothrombin time was 25. INR of 2.3. His chemistry showed a serum sodium 159, potassium 3.6, chloride 120, bicarbonate 28, anion gap of 11, BUN 20, creatinine 2.5. Estimated GFR was 36 mL per minute. His glucose was 87, calcium was 8.4. Total bilirubin, AST, ALT elevated. Alkaline phosphatase is normal. Total protein 5, albumin 2.6. ASSESSMENT: 1. Acute hypoxic respiratory failure, likely multifactorial due to severe metabolic acidosis. 2. Acute kidney injury. 3. Hyperkalemia. 4. Atrial fibrillation with rapid ventricular response for which he is now on amiodarone. 5. Hypothermia, resolved. 6. Severe hypernatremia. Serum sodium 159. 7. Worsening thrombocytopenia. His platelet count has come down from 217 down to 87. 8. Deranged liver enzymes. PLAN: My plan is to obviously discontinue the vecuronium and also sedation and change his IV fluid to D5 only at 150 mL and obviously once he is off of the paralytic agent and sedation, he can be evaluated by the neurologist to see if he is brain . OCTAVIO/DIONE DR: [place] TID: [id number]
--- NOTE | 2021-04-22 09:04 | PDOC ---
DATE OF SERVICE: DOS: DATE: 04/22/21 TIME: 08:57 SUBJECTIVE ROS Follow-up for acute kidney injury Patient remains intubated sedated on the ventilator. He was paralyzed until recently. By his vecuronium has been discontinued. He is now on D5W due to elevated sodium levels OBJECTIVE Vital Signs Vital Signs Date Time Temp Pulse Resp B/P (MAP) Pulse Ox O2 Delivery O2 Flow Rate FiO2 04/22/21 07:48 100 Ventilator 04/22/21 06:00 97.5 92 16 78/56 97.5 04/21/21 10:17 3.0 I & 0 Intake and Output 04/22/21 06:59 Intake Total 587 ml Output Total 5805 ml Balance -5218 ml Intake Oral 0 ml IV Total 587 ml Output Urine Total 4405 ml Gastric Drainage Total 1400 ml PHYSICAL EXAM Physical Exam General Appearance: Currently sedated intubated on the ventilator in no obvious respiratory distress Eyes: Sclera anicteric conjunctiva Normal EN: No EN Drainage Mucous Memb. Moist while intubated Neck: no JVD no JVP Supple no Thyromegaly CVS: S1 S2 no Murmur No Gallop No Rub no Edema Resp: no Rales no Rhonchi no Acc. Muscle use GI: BS hypoactive NO Bruit Non Tender Non Distended : no CVA tenderness; no Suprapubic Tenderness SKIN: no Rashes Breast Exam deferred, multiple tattoos Mu.Sk: Adequate passive ROM no Muscle Atrophy Heme: Unable to palpate Obvious LAD no palpable splenomegaly NEURO: Unable to assess currently while on the vent and sedated intubated Psych: Unable to assess currently while sedated intubated on the vent Assessment & Plan SERGIO/ATN: Patient initially was oliguric and then had significant urine output. This has tapered off currently with minimal urine output over the last few hours. Unclear if patient is dehydrated given elevated sodium levels. Agree with D5W as you are currently doing. Watch trend and may need hemodialysis tomorrow morning Hypernatremia: D5W as being administered. This may have a tendency to lowering his phosphorus hence we will check phosphorus levels Previous hypophosphatemia: Incompletely replaced. As needed K-Phos as ordered. Hypotension: Currently normotensive and off pressors Possible septic shock: Unclear source or etiology. Defer to other physicians to ascertain precise etiology. Cannot rule out intra-abdominal source Nutrition: Begin tube feeds when appropriate Severe metabolic acidosis with elevated lactic acid: This appears to have resolved currently after approximately 24 hours of CRRT Hyperkalemia: Presumably due to severe metabolic acidosis. Anticipate correction with correction of metabolic acidosis. IV bicarb has been administered. IV bicarb has been reordered also pending initiation of CRRT Prognosis is guarded COMMENT/RELEVANT DATA Meds Current Medications Medications (Trade) Dose Ordered Sig/Alejandro Start Time Stop Time Status Last Admin Dose Admin Adenosine (Adenocard) 12 mg 1X ONCE 04/20/21 16:30 04/20/21 16:31 DC 04/20/21 16:32 12 MG Amiodarone HCl 300 mg/Dextrose 106 ml @ 618 mls/hr 1X ONCE 04/20/21 23:30 04/20/21 23:40 DC 04/20/21 23:43 618 MLS/HR Amiodarone HCl 450 mg/Dextrose 259 ml @ 17 mls/hr CONT PRN 04/21/21 19:30 04/22/21 19:29 04/21/21 20:08 16.7 MLS/HR Amiodarone HCl 75 mg/Dextrose 101.5 ml @ 618 mls/hr 1X ONCE 04/20/21 16:00 04/20/21 16:09 DC 04/20/21 15:44 618 MLS/HR Atropine Sulfate (ATROPINE 0.5mg SYRINGE) 0.5 mg PRN Q5MIN PRN 04/20/21 08:00 Dextrose 1,000 ml @ 150 mls/hr CONT PRN 04/22/21 08:30 04/22/21 08:47 150 MLS/HR Dextrose (Dextrose 50%-Water Syringe) 25 gm STK-MED ONCE 04/20/21 08:07 04/20/21 08:08 DC Digoxin (Lanoxin) 250 mcg 1X ONCE 04/21/21 04:30 04/21/21 04:32 DC Diltiazem HCl 125 mg/Sodium Chloride 125 ml @ 5 mls/hr CONT PRN 04/20/21 03:30 Epinephrine HCl 5 mg/Sodium Chloride 255 ml @ 29.223 mls/ hr CONT PRN 04/20/21 20:30 Etomidate (Amidate) 20 mg STK-MED ONCE 04/20/21 07:54 04/20/21 07:54 DC Fentanyl Citrate 55 ml @ 0 mls/hr CONT PRN 04/20/21 14:15 04/22/21 03:45 3 MLS/HR Glycerin/ Hypromellose/ Polyethylene (Artificial Tears) 1 drop PRN Q1HR PRN 04/20/21 08:00 Heparin Sodium (Porcine) (Heparin Sodium) 2,400 unit PRN Q6HRS PRN 04/20/21 19:15 04/21/21 10:48 DC Heparin Sodium/ Dextrose 250 ml @ 10 mls/hr CONT PRN 04/20/21 19:15 04/21/21 10:48 DC 04/20/21 19:32 10 MLS/HR Lidocaine HCl (Buffered Lidocaine 1%) 6 ml 1X ONCE 04/20/21 13:45 04/20/21 13:46 DC 04/20/21 13:46 6 ML Midazolam HCl (Versed) 5 mg PRN 1X PRN 04/20/21 08:00 04/21/21 07:59 DC Norepinephrine Bitartrate 32 mg/ Dextrose 250 ml @ 4.453 mls/ hr CONT PRN 04/20/21 20:45 04/21/21 16:58 15.6 MLS/HR Norepinephrine Bitartrate 8 mg/ Dextrose 258 ml @ 18.479 mls/ hr CONT PRN 04/20/21 08:00 04/20/21 20:35 DC 04/20/21 18:06 29.567 MLS/HR Pantoprazole Sodium 80 mg/ Sodium Chloride 100 ml @ 10 mls/hr Q10H 04/20/21 09:00 04/22/21 02:04 10 MLS/HR Potassium Chloride 20 meq/ Magnesium Sulfate 2.5 meq/Calcium Chloride 5 meq/ Bicarbonate Dialysis Soln w/ out KCl 5,014.1964 ml @ 1,500 mls/hr Q3H21M 04/21/21 01:45 04/21/21 11:07 DC 04/21/21 01:44 1,500 MLS/HR Potassium Chloride 20 meq/ Magnesium Sulfate 15 meq/Calcium Chloride 5 meq/ Bicarbonate Dialysis Soln w/ out KCl 5,017.3214 ml @ 1,500 mls/hr Q3H21M 04/20/21 15:00 04/20/21 19:13 DC 04/20/21 18:14 1,500 MLS/HR Potassium Phosphate 13.3 mmol/Sodium Chloride 104.4333 ml @ 100 mls/hr Q1H 04/21/21 02:00 04/21/21 04:59 DC 04/21/21 04:48 100 MLS/HR Propofol 100 ml @ 2.865 mls/ hr CONT PRN 04/20/21 08:00 Rocuronium [place] (Zemuron) 50 mg STK-MED ONCE 04/20/21 07:49 04/20/21 07:49 DC Sodium Bicarbonate 100 meq/Dextrose 1,100 ml @ 60 mls/hr [id number] 04/20/21 03:30 04/20/21 05:54 DC Sodium Bicarbonate 150 meq/Dextrose 1,150 ml @ 500 mls/hr Q2H18M 04/20/21 15:00 04/21/21 01:01 DC 04/20/21 22:43 500 MLS/HR Sodium Bicarbonate (Sodium Bicarb Adult 8.4% Syr) 100 meq 1X ONCE 04/20/21 15:15 04/20/21 15:16 DC 04/20/21 15:10 100 MEQ Sodium Chloride 1,000 ml @ 200 mls/hr Q5H ONCE 04/21/21 10:45 04/21/21 15:44 DC 04/21/21 11:10 200 MLS/HR Vecuronium [place] 50 mg/ Sodium Chloride 50 ml @ 4.584 mls/ hr CONT PRN 04/20/21 16:30 04/22/21 02:04 4.011 MLS/HR Vecuronium [place] (Norcuron Bolus) 6 mg PRN Q6HRS PRN 04/20/21 11:00 04/20/21 15:34 6 MG Lab Laboratory Tests Test 04/21/21 15:50 04/22/21 06:45 04/22/21 07:45 Sodium Level 153 mmol/L (136-145) 159 mmol/L (136-145) Potassium Level 4.0 mmol/L (3.5-5.1) 3.6 mmol/L (3.5-5.1) Chloride Level 114 mmol/L (98-107) 120 mmol/L (98-107) Carbon Dioxide Level 31 mmol/L (21-32) 28 mmol/L (21-32) Anion Gap 8 (6-14) 11 (6-14) Blood Urea Nitrogen 12 mg/dL (8-26) 20 mg/dL (8-26) Creatinine 1.8 mg/dL (0.7-1.3) 2.5 mg/dL (0.7-1.3) Estimated GFR (Cockcroft-Gault) 53.5 36.6 Glucose Level 120 mg/dL (70-99) 87 mg/dL (70-99) Calcium Level 8.5 mg/dL (8.5-10.1) 8.4 mg/dL (8.5-10.1) Phosphorus Level 1.7 mg/dL (2.6-4.7) Magnesium Level 3.2 mg/dL (1.8-2.4) White Blood Count 6.6 x10^3/uL (4.0-11.0) Red Blood Count 4.54 x10^6/uL (4.30-5.70) Hemoglobin 13.7 g/dL (13.0-17.5) Hematocrit 40.9 % (39.0-53.0) Mean Corpuscular Volume 90 fL (79-100) Mean Corpuscular Hemoglobin 30 pg (25-35) Mean Corpuscular Hemoglobin Concent 33 g/dL (31-37) Red Cell Distribution Width 14.4 % (11.5-14.5) Platelet Count 87 x10^3/uL (140-400) Prothrombin Time 25.0 SEC (11.7-14.0) Prothromb Time International Ratio 2.3 (0.8-1.1) BUN/Creatinine Ratio 8 (6-20) Total Bilirubin 2.0 mg/dL (0.2-1.0) Aspartate Amino Transf (AST/SGOT) 176 U/L (15-37) Alanine Aminotransferase (ALT/SGPT) 101 U/L (16-63) Alkaline Phosphatase 61 U/L (46-116) Total Protein 5.0 g/dL (6.4-8.2) Albumin 2.6 g/dL (3.4-5.0) Albumin/Globulin Ratio 1.1 (1.0-1.7) O2 Saturation 99 % (92-99) Arterial Blood pH 7.43 (7.35-7.45) Arterial Blood pCO2 at Patient Temp 36 mmHg (35-46) Arterial Blood pO2 at Patient Temp 150 mmHg (85-108) Arterial Blood HCO3 23 mmol/L (21-28) Arterial Blood Base Excess -1 mmol/L (-3-3) FiO2 40/vent Results All relevant outside records, renal labs, imaging studies, telemetry/EKG's were reviewed. Other Chest x-ray from this morning IMPRESSION: Aeration of the lungs appears similar to the prior examination. Support lines and tubes are in similar position. Justicifation of Admission Dx: Justifications for Admission: Justification of Admission Dx: N/A PAUL CASTELLANOS MD Apr 22, 2021 09:03
[2021-04-22] MEDS ORDERED: POTASSIUM PHOS,M-BASIC-D-BASIC 15 MMOL in IV NORMAL SALINE 100ML 100 ML IV ONE (11:00)
[2021-04-22] MEDS: NOREPINEPHRINE VIAL 32 MG in IV D5W 250ML IV PRN ×2 (11:34→21:48)
--- NOTE | 2021-04-22 12:06 | PDOC ---
PROGRESS NOTES Date of Service DATE: 04/22/21 TIME: 12:05 Subjective Subjective pt on vent, reviewed with nurse Objective Objective Vital Signs Date Time Temp Pulse Resp B/P (MAP) Pulse Ox O2 Delivery O2 Flow Rate FiO2 04/22/21 11:56 98.2 111 16 144/92 99 Ventilator 98.2 04/22/21 04:15 3.0 Intake and Output 04/22/21 07:00 Intake Total 1599 ml Output Total 6555 ml Balance -4956 ml Intake Oral 0 ml IV Total 1599 ml Output Urine Total 4455 ml Gastric Drainage Total 2100 ml Physical Exam Abdomen: Soft Lungs: Other (on vent) Assessment Assessment sepsis, ileus Plan Plan of Care Supportive care, no new surgical recs Comment Review of Relevant I have reviewed the following items abdelrahman (where applicable) has been applied. Labs Laboratory Tests Test 04/20/21 14:50 04/20/21 18:00 04/20/21 21:25 04/20/21 21:26 Lactic Acid Level 8.5 mmol/L (0.4-2.0) 7.1 mmol/L (0.4-2.0) 6.8 mmol/L (0.4-2.0) White Blood Count 9.9 x10^3/uL (4.0-11.0) Red Blood Count 4.13 x10^6/uL (4.30-5.70) Hemoglobin 12.6 g/dL (13.0-17.5) Hematocrit 37.0 % (39.0-53.0) Mean Corpuscular Volume 90 fL (79-100) Mean Corpuscular Hemoglobin 31 pg (25-35) Mean Corpuscular Hemoglobin Concent 34 g/dL (31-37) Red Cell Distribution Width 14.4 % (11.5-14.5) Platelet Count 158 x10^3/uL (140-400) Prothrombin Time 26.2 SEC (11.7-14.0) Prothromb Time International Ratio 2.5 (0.8-1.1) Sodium Level 143 mmol/L (136-145) Potassium Level 3.7 mmol/L (3.5-5.1) Chloride Level 103 mmol/L (98-107) Carbon Dioxide Level 25 mmol/L (21-32) Anion Gap 15 (6-14) Blood Urea Nitrogen 22 mg/dL (8-26) Creatinine 2.2 mg/dL (0.7-1.3) Estimated GFR (Cockcroft-Gault) 42.5 BUN/Creatinine Ratio 10 (6-20) Glucose Level 223 mg/dL (70-99) Calcium Level 7.3 mg/dL (8.5-10.1) Ionized Calcium 0.91 mmol/L (1.13-1.32) Phosphorus Level 2.3 mg/dL (2.6-4.7) Magnesium Level 3.8 mg/dL (1.8-2.4) Total Bilirubin 0.7 mg/dL (0.2-1.0) Aspartate Amino Transf (AST/SGOT) 246 U/L (15-37) Alanine Aminotransferase (ALT/SGPT) 73 U/L (16-63) Alkaline Phosphatase 49 U/L (46-116) Total Protein 5.2 g/dL (6.4-8.2) Albumin 3.0 g/dL (3.4-5.0) Albumin/Globulin Ratio 1.4 (1.0-1.7) Glucose (Fingerstick) 257 mg/dL (70-99) Test 04/20/21 23:59 04/21/21 01:48 04/21/21 06:20 04/21/21 06:40 Sodium Level 143 mmol/L (136-145) 145 mmol/L (136-145) Potassium Level 2.9 mmol/L (3.5-5.1) 3.3 mmol/L (3.5-5.1) Chloride Level 102 mmol/L (98-107) 107 mmol/L (98-107) Carbon Dioxide Level 28 mmol/L (21-32) 28 mmol/L (21-32) Anion Gap 13 (6-14) 10 (6-14) Blood Urea Nitrogen 18 mg/dL (8-26) 13 mg/dL (8-26) Creatinine 2.0 mg/dL (0.7-1.3) 1.4 mg/dL (0.7-1.3) Estimated GFR (Cockcroft-Gault) 47.4 71.5 Glucose Level 290 mg/dL (70-99) 143 mg/dL (70-99) Calcium Level 7.3 mg/dL (8.5-10.1) 8.6 mg/dL (8.5-10.1) Phosphorus Level 1.2 mg/dL (2.6-4.7) 2.1 mg/dL (2.6-4.7) Magnesium Level 3.5 mg/dL (1.8-2.4) 3.5 mg/dL (1.8-2.4) Heparin Anti-Xa Act, Unfractionated 0.47 IU/mL (0.30-0.70) 0.68 IU/mL (0.30-0.70) White Blood Count 7.6 x10^3/uL (4.0-11.0) Red Blood Count 4.43 x10^6/uL (4.30-5.70) Hemoglobin 13.3 g/dL (13.0-17.5) Hematocrit 39.4 % (39.0-53.0) Mean Corpuscular Volume 89 fL (79-100) Mean Corpuscular Hemoglobin 30 pg (25-35) Mean Corpuscular Hemoglobin Concent 34 g/dL (31-37) Red Cell Distribution Width 14.3 % (11.5-14.5) Platelet Count 129 x10^3/uL (140-400) Neutrophils (%) (Auto) 77 % (31-73) Lymphocytes (%) (Auto) 17 % (24-48) Monocytes (%) (Auto) 6 % (0-9) Eosinophils (%) (Auto) 0 % (0-3) Basophils (%) (Auto) 0 % (0-3) Neutrophils # (Auto) 5.9 x10^3/uL (1.8-7.7) Lymphocytes # (Auto) 1.3 x10^3/uL (1.0-4.8) Monocytes # (Auto) 0.5 x10^3/uL (0.0-1.1) Eosinophils # (Auto) 0.0 x10^3/uL (0.0-0.7) Basophils # (Auto) 0.0 x10^3/uL (0.0-0.2) Prothrombin Time 31.3 SEC (11.7-14.0) Prothromb Time International Ratio 3.1 (0.8-1.1) Urine Collection Type Unknown Urine Color Yellow Urine Clarity Clear Urine pH 7.0 (<5.0-8.0) Urine Specific [place] <=1.005 (1.000-1.030) Urine Protein Negative mg/dL (NEG-TRACE) Urine Glucose (UA) Negative mg/dL (NEG) Urine Ketones (Stick) Trace mg/dL (NEG) Urine Blood Moderate (NEG) Urine Nitrite Negative (NEG) Urine Bilirubin Negative (NEG) Urine Urobilinogen Dipstick 0.2 mg/dL (0.2 mg/dL) Urine Leukocyte Esterase Negative (NEG) Urine RBC 1-2 /HPF (0-2) Urine WBC Occ /HPF (0-4) Urine Squamous Epithelial Cells Occ /LPF Urine Bacteria 0 /HPF (0-FEW) Test 04/21/21 07:45 04/21/21 15:50 04/22/21 06:40 04/22/21 06:45 O2 Saturation 99 % (92-99) Arterial Blood pH 7.64 (7.35-7.45) Arterial Blood pCO2 at Patient Temp 24 mmHg (35-46) Arterial Blood pO2 at Patient Temp 210 mmHg (85-108) Arterial Blood HCO3 25 mmol/L (21-28) Arterial Blood Base Excess 5 mmol/L (-3-3) FiO2 50/vent Sodium Level 153 mmol/L (136-145) 159 mmol/L (136-145) Potassium Level 4.0 mmol/L (3.5-5.1) 3.6 mmol/L (3.5-5.1) Chloride Level 114 mmol/L (98-107) 120 mmol/L (98-107) Carbon Dioxide Level 31 mmol/L (21-32) 28 mmol/L (21-32) Anion Gap 8 (6-14) 11 (6-14) Blood Urea Nitrogen 12 mg/dL (8-26) 20 mg/dL (8-26) Creatinine 1.8 mg/dL (0.7-1.3) 2.5 mg/dL (0.7-1.3) Estimated GFR (Cockcroft-Gault) 53.5 36.6 Glucose Level 120 mg/dL (70-99) 87 mg/dL (70-99) Calcium Level 8.5 mg/dL (8.5-10.1) 8.4 mg/dL (8.5-10.1) Phosphorus Level 1.7 mg/dL (2.6-4.7) 1.5 mg/dL (2.6-4.7) Magnesium Level 3.2 mg/dL (1.8-2.4) White Blood Count 6.6 x10^3/uL (4.0-11.0) Red Blood Count 4.54 x10^6/uL (4.30-5.70) Hemoglobin 13.7 g/dL (13.0-17.5) Hematocrit 40.9 % (39.0-53.0) Mean Corpuscular Volume 90 fL (79-100) Mean Corpuscular Hemoglobin 30 pg (25-35) Mean Corpuscular Hemoglobin Concent 33 g/dL (31-37) Red Cell Distribution Width 14.4 % (11.5-14.5) Platelet Count 87 x10^3/uL (140-400) Prothrombin Time 25.0 SEC (11.7-14.0) Prothromb Time International Ratio 2.3 (0.8-1.1) BUN/Creatinine Ratio 8 (6-20) Total Bilirubin 2.0 mg/dL (0.2-1.0) Aspartate Amino Transf (AST/SGOT) 176 U/L (15-37) Alanine Aminotransferase (ALT/SGPT) 101 U/L (16-63) Alkaline Phosphatase 61 U/L (46-116) Total Protein 5.0 g/dL (6.4-8.2) Albumin 2.6 g/dL (3.4-5.0) Albumin/Globulin Ratio 1.1 (1.0-1.7) Test 04/22/21 07:45 O2 Saturation 99 % (92-99) Arterial Blood pH 7.43 (7.35-7.45) Arterial Blood pCO2 at Patient Temp 36 mmHg (35-46) Arterial Blood pO2 at Patient Temp 150 mmHg (85-108) Arterial Blood HCO3 23 mmol/L (21-28) Arterial Blood Base Excess -1 mmol/L (-3-3) FiO2 40/vent Laboratory Tests Test 04/21/21 15:50 04/22/21 06:40 04/22/21 06:45 04/22/21 07:45 Sodium Level 153 mmol/L (136-145) 159 mmol/L (136-145) Potassium Level 4.0 mmol/L (3.5-5.1) 3.6 mmol/L (3.5-5.1) Chloride Level 114 mmol/L (98-107) 120 mmol/L (98-107) Carbon Dioxide Level 31 mmol/L (21-32) 28 mmol/L (21-32) Anion Gap 8 (6-14) 11 (6-14) Blood Urea Nitrogen 12 mg/dL (8-26) 20 mg/dL (8-26) Creatinine 1.8 mg/dL (0.7-1.3) 2.5 mg/dL (0.7-1.3) Estimated GFR (Cockcroft-Gault) 53.5 36.6 Glucose Level 120 mg/dL (70-99) 87 mg/dL (70-99) Calcium Level 8.5 mg/dL (8.5-10.1) 8.4 mg/dL (8.5-10.1) Phosphorus Level 1.7 mg/dL (2.6-4.7) 1.5 mg/dL (2.6-4.7) Magnesium Level 3.2 mg/dL (1.8-2.4) White Blood Count 6.6 x10^3/uL (4.0-11.0) Red Blood Count 4.54 x10^6/uL (4.30-5.70) Hemoglobin 13.7 g/dL (13.0-17.5) Hematocrit 40.9 % (39.0-53.0) Mean Corpuscular Volume 90 fL (79-100) Mean Corpuscular Hemoglobin 30 pg (25-35) Mean Corpuscular Hemoglobin Concent 33 g/dL (31-37) Red Cell Distribution Width 14.4 % (11.5-14.5) Platelet Count 87 x10^3/uL (140-400) Prothrombin Time 25.0 SEC (11.7-14.0) Prothromb Time International Ratio 2.3 (0.8-1.1) BUN/Creatinine Ratio 8 (6-20) Total Bilirubin 2.0 mg/dL (0.2-1.0) Aspartate Amino Transf (AST/SGOT) 176 U/L (15-37) Alanine Aminotransferase (ALT/SGPT) 101 U/L (16-63) Alkaline Phosphatase 61 U/L (46-116) Total Protein 5.0 g/dL (6.4-8.2) Albumin 2.6 g/dL (3.4-5.0) Albumin/Globulin Ratio 1.1 (1.0-1.7) O2 Saturation 99 % (92-99) Arterial Blood pH 7.43 (7.35-7.45) Arterial Blood pCO2 at Patient Temp 36 mmHg (35-46) Arterial Blood pO2 at Patient Temp 150 mmHg (85-108) Arterial Blood HCO3 23 mmol/L (21-28) Arterial Blood Base Excess -1 mmol/L (-3-3) FiO2 40/vent Medications Current Medications Sodium Bicarbonate 100 meq/Dextrose 1,100 ml @ 60 mls/hr [id number] IV ; Start 04/20/21 at 03:30; Stop 04/20/21 at 05:54; Status DC Diltiazem HCl 125 mg/Sodium Chloride 125 ml @ 5 mls/hr CONT PRN IV PER PROTOCOL; Start 04/20/21 at 03:30 Sodium Chloride 1,000 ml @ 1,000 mls/hr 1X ONCE IV Last administered on 04/20/21at 05:45; Start 04/20/21 at 05:45; Stop 04/20/21 at 06:44; Status DC Sodium Bicarbonate 150 meq/Dextrose 1,150 ml @ 125 mls/hr Q9H12M IV Last administered on 04/20/21at 22:54; Start 04/20/21 at 06:00; Stop 04/21/21 at 01:01; Status DC Sodium Bicarbonate (Sodium Bicarb Adult 8.4% Syr) 50 meq STK-MED ONCE .ROUTE ; Start 04/20/21 at 07:47; Stop 04/20/21 at 07:47; Status DC Rocuronium [place] (Zemuron) 50 mg STK-MED ONCE .ROUTE ; Start 04/20/21 at 07:49; Stop 04/20/21 at 07:49; Status DC Sodium Bicarbonate (Sodium Bicarb Adult 8.4% Syr) 100 meq 1X ONCE IV Last administered on 04/20/21at 08:09; Start 04/20/21 at 08:00; Stop 04/20/21 at 08:01; Status DC Etomidate (Amidate) 20 mg STK-MED ONCE IV ; Start 04/20/21 at 07:49; Stop 04/20/21 at 07:50; Status DC Etomidate (Amidate) 20 mg STK-MED ONCE IV ; Start 04/20/21 at 07:54; Stop 04/20/21 at 07:54; Status DC Fentanyl Citrate 30 ml @ 2.5 mls/hr CONT PRN IV SEE PROTOCOL Last administered on 04/20/21at 10:17; Start 04/20/21 at 08:00; Stop 04/20/21 at 15:23; Status DC Midazolam HCl 100 ml @ 0 mls/hr CONT PRN IV SEE PROTOCOL Last administered on 04/22/21at 11:06; Start 04/20/21 at 08:00 Propofol 100 ml @ 2.865 mls/ hr CONT PRN IV PER PROTOCOL; Start 04/20/21 at 08:00 Glycerin/ Hypromellose/ Polyethylene (Artificial Tears) 1 drop PRN Q1HR PRN OU DRY EYE; Start 04/20/21 at 08:00 Midazolam HCl (Versed) 5 mg PRN 1X PRN IVP VENT INDUCTION; Start 04/20/21 at 08:00; Stop 04/21/21 at 07:59; Status DC Sodium Chloride 500 ml @ 500 mls/hr 1X PRN PRN IV SEE COMMENTS; Start 1 at 08:00 Atropine Sulfate (ATROPINE 0.5mg SYRINGE) 0.5 mg PRN Q5MIN PRN IV SEE COMMENTS; Start 04/20/21 at 08:00 Norepinephrine Bitartrate 8 mg/ Dextrose 258 ml @ 18.479 mls/ hr CONT PRN IV PER PROTOCOL Last administered on 04/20/21at 18:06; Start 04/20/21 at 08:00; Stop 04/20/21 at 20:35; Status DC Dextrose (Dextrose 50%-Water Syringe) 25 gm 1X ONCE IV Last administered on 04/20/21at 08:09; Start 04/20/21 at 08:15; Stop 04/20/21 at 08:16; Status DC Dextrose (Dextrose 50%-Water Syringe) 25 gm STK-MED ONCE IV ; Start 04/20/21 at 08:07; Stop 04/20/21 at 08:08; Status DC Pantoprazole Sodium 80 mg/ Sodium Chloride 100 ml @ 10 mls/hr Q10H IV Last administered on 04/22/21at 11:06; Start 04/20/21 at 09:00 Sodium Chloride 1,000 ml @ 1,000 mls/hr 1X ONCE IV Last administered on 04/20/21at 08:54; Start 04/20/21 at 09:00; Stop 04/20/21 at 09:59; Status DC Vecuronium [place] (Norcuron Bolus) 6 mg PRN Q6HRS PRN IV VENTILATOR COMPLIANCE Last administered on 04/20/21at 15:34; Start 04/20/21 at 11:00 Sodium Bicarbonate (Sodium Bicarb Adult 8.4% Syr) 100 meq Q2H IV Last administered on 04/20/21at 13:32; Start 04/20/21 at 13:00; Stop 04/20/21 at 15:01; Status DC Lidocaine HCl (Buffered Lidocaine 1%) 3 ml STK-MED ONCE .ROUTE ; Start 04/20/21 at 13:02; Stop 04/20/21 at 13:02; Status DC Lidocaine HCl (Buffered Lidocaine 1%) 6 ml 1X ONCE INJ Last administered on 04/20/21at 13:46; Start 04/20/21 at 13:45; Stop 04/20/21 at 13:46; Status DC Potassium Chloride 20 meq/ Magnesium Sulfate 15 meq/Calcium Chloride 5 meq/ Bicarbonate Dialysis Soln w/ out KCl 5,017.3214 ml @ 1,500 mls/hr Q3H21M IV Last administered on 04/20/21at 18:15; Start 04/20/21 at 15:00; Stop 04/20/21 at 19:13; Status DC Potassium Chloride 20 meq/ Magnesium Sulfate 15 meq/Calcium Chloride 5 meq/ Bicarbonate Dialysis Soln w/ out KCl 5,017.3214 ml @ 1,500 mls/hr Q3H21M IV Last administered on 04/20/21at 18:14; Start 04/20/21 at 15:00; Stop 04/20/21 at 19:13; Status DC Sodium Bicarbonate 150 meq/Dextrose 1,150 ml @ 500 mls/hr Q2H18M IV Last administered on 04/20/21at 22:43; Start 04/20/21 at 15:00; Stop 04/21/21 at 01:01; Status DC Fentanyl Citrate 55 ml @ 0 mls/hr CONT PRN IV SEE PROTOCOL Last administered on 04/22/21at 03:45; Start 04/20/21 at 14:15 Sodium Bicarbonate (Sodium Bicarb Adult 8.4% Syr) 100 meq 1X ONCE IV Last administered on 04/20/21at 15:10; Start 04/20/21 at 15:15; Stop 04/20/21 at 15:16; Status DC Amiodarone HCl 75 mg/Dextrose 101.5 ml @ 618 mls/hr 1X ONCE IV Last administered on 04/20/21at 15:44; Start 04/20/21 at 16:00; Stop 04/20/21 at 16:09; Status DC Amiodarone HCl 450 mg/Dextrose 259 ml @ 0 mls/hr CONT PRN IV SEE I/O RECORD Last administered on 04/21/21at 02:52; Start 04/20/21 at 15:30; Stop 04/21/21 at 15:30; Status DC Adenosine (Adenocard) 6 mg STK-MED ONCE IV ; Start 04/20/21 at 16:10; Stop 04/20/21 at 16:10; Status DC Adenosine (Adenocard) 6 mg STK-MED ONCE IV ; Start 04/20/21 at 16:15; Stop 04/20/21 at 16:16; Status DC Adenosine (Adenocard) 6 mg 1X ONCE IV Last administered on 04/20/21at 16:33; Start 04/20/21 at 16:30; Stop 04/20/21 at 16:31; Status DC Adenosine (Adenocard) 12 mg 1X ONCE IV Last administered on 04/20/21at 16:32; Start 04/20/21 at 16:30; Stop 04/20/21 at 16:31; Status DC Vecuronium [place] 50 mg/ Sodium Chloride 50 ml @ 4.584 mls/ hr CONT PRN IV PER PROTOCOL Last administered on 04/22/21at 02:04; Start 04/20/21 at 16:30 Heparin Sodium/ Dextrose 250 ml @ 10 mls/hr CONT PRN IV PER PROTOCOL Last administered on 04/20/21at 19:32; Start 04/20/21 at 19:15; Stop 04/21/21 at 10:48; Status DC Heparin Sodium (Porcine) (Heparin Sodium) 2,400 unit PRN Q6HRS PRN IV FOR UFH LEVEL LESS THAN 0.2; Start 04/20/21 at 19:15; Stop 04/21/21 at 10:48; Status DC Potassium Chloride 20 meq/ Magnesium Sulfate 2.5 meq/Calcium Chloride 5 meq/ Bicarbonate Dialysis Soln w/ out KCl 5,014.1964 ml @ 1,500 mls/hr Q3H21M IV Last administered on 04/21/21at 07:03; Start 04/20/21 at 21:00; Stop 04/21/21 at 11:07; Status DC Potassium Chloride 20 meq/ Magnesium Sulfate 2.5 meq/Calcium Chloride 5 meq/ Bicarbonate Dialysis Soln w/ out KCl 5,014.1964 ml @ 1,500 mls/hr Q3H21M IV Last administered on 04/21/21at 07:03; Start 04/20/21 at 21:00; Stop 04/21/21 at 11:07; Status DC Epinephrine HCl 5 mg/Sodium Chloride 255 ml @ 29.223 mls/ hr CONT PRN IV SEE I/O RECORD; Start 04/20/21 at 20:30 Norepinephrine Bitartrate 32 mg/ Dextrose 250 ml @ 4.453 mls/ hr CONT PRN IV SEE I/O RECORD Last administered on 04/22/21at 11:34; Start 04/20/21 at 20:45 Digoxin (Lanoxin) 250 mcg 1X ONCE IV Last administered on 04/20/21at 21:54; Start 04/20/21 at 21:45; Stop 04/20/21 at 21:47; Status DC Digoxin (Lanoxin) 250 mcg 1X ONCE IV Last administered on 04/20/21at 22:35; Start 04/20/21 at 22:15; Stop 04/20/21 at 22:16; Status DC Amiodarone HCl 300 mg/Dextrose 106 ml @ 618 mls/hr 1X ONCE IV Last administered on 04/20/21at 23:43; Start 04/20/21 at 23:30; Stop 04/20/21 at 23:40; Status DC Digoxin (Lanoxin) 250 mcg 1X ONCE IV ; Start 04/21/21 at 04:30; Stop 04/21/21 at 04:32; Status DC Potassium Phosphate 13.3 mmol/Sodium Chloride 104.4333 ml @ 100 mls/hr Q1H IV Last administered on 04/21/21at 04:48; Start 04/21/21 at 02:00; Stop 04/21/21 at 04:59; Status DC Potassium Chloride 20 meq/ Magnesium Sulfate 2.5 meq/Calcium Chloride 5 meq/ B icarbonate Dialysis Soln w/ out KCl 5,014.1964 ml @ 1,500 mls/hr Q3H21M IV Last administered on 04/21/21at 01:44; Start 04/21/21 at 01:45; Stop 04/21/21 at 11:07; Status DC Sodium Chloride 1,000 ml @ 200 mls/hr Q5H ONCE IV Last administered on at 11:10; Start 04/21/21 at 10:45; Stop 04/21/21 at 15:44; Status DC Amiodarone HCl 450 mg/Dextrose 259 ml @ 17 mls/hr CONT PRN IV SEE I/O RECORD Last administered on 04/21/21at 20:08; Start 04/21/21 at 19:30; Stop 04/22/21 at 19:29 Dextrose 1,000 ml @ 150 mls/hr CONT PRN IV SEE I/O RECORD Last administered on 04/22/21at 08:47; Start 04/22/21 at 08:30 Potassium Phosphate 15 mmol/ Sodium Chloride 105 ml @ 52.5 mls/hr PRN Q2HRS PRN IV if phos < 2.6; Start 04/22/21 at 09:00; Stop 04/22/21 at 10:01; Status DC Potassium Phosphate 15 mmol/ Sodium Chloride 105 ml @ 52.5 mls/hr 1X ONCE IV Last administered on 04/22/21at 10:16; Start 04/22/21 at 11:00; Stop 04/22/21 at 12:59 Amiodarone HCl 450 mg/Dextrose 259 ml @ 17 mls/hr CONT PRN IV SEE I/O RECORD; Start 04/22/21 at 12:00; Stop 04/23/21 at 11:59 Vitals/I & O Vital Sign - Last 24 Hours 04/21/21 04/21/21 04/21/21 04/21/21 12:11 12:29 12:35 13:18 Temp 100.6 100.6 100.6 100.6 Pulse 119 119 Resp 16 16 B/P (MAP) 129/72 140/76 Pulse Ox 99 99 99 O2 Delivery Ventilator Mechanical Ventilator Ventilator Ventilator 04/21/21 04/21/21 04/21/21 04/21/21 13:31 14:00 14:10 15:12 Temp 100.6 100.0 100.6 100.0 Pulse 114 114 Resp 16 16 B/P (MAP) 104/74 115/76 120/78 Pulse Ox 99 99 99 O2 Delivery Ventilator Ventilator Ventilator 04/21/21 04/21/21 04/21/21 04/21/21 15:32 16:30 16:32 17:22 Temp 99.9 99.9 Pulse 113 Resp 16 B/P (MAP) 127/73 Pulse Ox 99 99 99 O2 Delivery Ventilator Ventilator Mechanical Ventilator Ventilator 04/21/21 04/21/21 04/21/21 04/21/21 17:36 18:06 19:00 20:00 Temp 99.7 99.5 99.0 99.7 99.5 99.0 Pulse 103 103 102 102 Resp 16 16 16 16 B/P (MAP) 93/69 111/74 105/69 105/72 Pulse Ox 99 99 99 99 O2 Delivery Ventilator Ventilator Ventilator Ventilator 04/21/21 04/21/21 04/21/21 04/21/21 20:00 20:21 21:00 22:00 Temp 98.6 98.6 Pulse 100 100 Resp 16 16 B/P (MAP) 102/69 99/71 Pulse Ox 99 99 99 O2 Delivery Mechanical Ventilator Ventilator Ventilator Ventilator 04/21/21 04/21/21 04/22/21 04/22/21 23:00 23:24 00:00 00:00 Temp 98.2 98.2 Pulse 100 96 Resp 16 16 B/P (MAP) 87/68 105/71 Pulse Ox 99 99 100 O2 Delivery Ventilator Ventilator Mechanical Ventilator Ventilator 04/22/21 04/22/21 04/22/21 04/22/21 01:00 02:00 02:11 03:00 Temp 97.9 97.9 Pulse 96 96 94 Resp 16 16 16 B/P (MAP) 103/70 102/68 99/63 Pulse Ox 100 100 99 100 O2 Delivery Ventilator Ventilator Ventilator Ventilator 04/22/21 04/22/21 04/22/21 04/22/21 04:00 04:00 04:15 05:00 Temp 97.9 97.9 Pulse 96 94 Resp 16 16 16 B/P (MAP) 94/67 85/58 Pulse Ox 100 100 100 O2 Delivery Ventilator Mechanical Ventilator Ventilator Ventilator O2 Flow Rate 3.0 04/22/21 04/22/21 04/22/21 04/22/21 05:15 06:00 07:00 07:48 Temp 97.5 97.9 97.5 97.9 Pulse 92 94 Resp 16 16 B/P (MAP) 78/56 94/68 Pulse Ox 100 99 100 100 O2 Delivery Ventilator Ventilator Ventilator Ventilator 04/22/21 04/22/21 04/22/21 04/22/21 08:00 08:00 09:03 10:02 Pulse 104 105 106 Resp 16 16 16 B/P (MAP) 85/64 100/75 106/75 Pulse Ox 100 100 100 O2 Delivery Ventilator Mechanical Ventilator Ventilator Ventilator 04/22/21 04/22/21 04/22/21 04/22/21 10:16 11:08 11:15 11:16 Temp 98.2 98.2 Pulse 107 Resp 16 B/P (MAP) 103/75 78/56 Pulse Ox 100 100 100 O2 Delivery Ventilator Ventilator Ventilator 04/22/21 04/22/21 04/22/21 04/22/21 11:20 11:38 11:55 11:56 Temp 98.2 98.2 Pulse 111 Resp 16 B/P (MAP) 75/59 140/94 144/92 Pulse Ox 99 O2 Delivery Mechanical Ventilator Ventilator Intake and Output 04/21/21 04/21/21 04/22/21 15:00 23:00 07:00 Intake Total 587 ml 1012 ml Output Total 1950 ml 1635 ml 2970 ml Balance -1950 ml -1048 ml -1958 ml Justifications for Admission Other Justification BARBARA RODRIGUEZ MD Apr 22, 2021 12:06
[2021-04-22] MEDS: AMIODARONE 450 MG in IV DEXTROSE 5% 250 ML IV PRN (12:14)
--- NOTE | 2021-04-22 15:55 | PDOC ---
PROGRESS NOTES Date of Service DATE: 04/22/21 TIME: 15:53 Subjective Subjective Patient seen and examined Objective Objective Vital Signs Date Time Temp Pulse Resp B/P (MAP) Pulse Ox O2 Delivery O2 Flow Rate FiO2 04/22/21 15:47 99 Ventilator 04/22/21 14:04 98.2 106 16 105/75 98.2 04/22/21 04:15 3.0 Intake and Output 04/22/21 07:00 Intake Total 1599 ml Output Total 6555 ml Balance -4956 ml Intake Oral 0 ml IV Total 1599 ml Output Urine Total 4455 ml Gastric Drainage Total 2100 ml Physical Exam Abdomen: Other (Mildly decreased bowel sounds) Heart: Other (Regular rhythm) General: Other (Intubated) Lungs: Other (Mildly decreased breath sounds) Assessment Assessment 1. Respiratory failure. The patient remains intubated on the ventilator. His general status is mildly improved today. He is followed by the pulmonary service and will continue on ventilator support and antibiotics. 2. Acute kidney injury. Severely elevated potassium and creatinine. Patient has been on CRRT. Lab continues to improve with a potassium of 3.6. Creatinine is 2.5. We will continue as per the renal service. 3. Patient was apparently found down at his facility. Possible use of K2. Con tinue supportive treatment as above. Neuro status questionable. 4. Atrial fibrillation with episodes of probable VT as well as severe tachy arrhythmias. Multiple cardioversions in the first 12 hours of his admission. He has now been in sinus rhythm for 24 hours. We will continue on IV amiodarone. Echocardiogram shows intact LV systolic function with no significant valvular abnormalities. Comment Review of Relevant I have reviewed the following items abdelrahman (where applicable) has been applied. Labs Laboratory Tests Test 04/20/21 18:00 04/20/21 21:25 04/20/21 21:26 04/20/21 23:59 White Blood Count 9.9 x10^3/uL (4.0-11.0) Red Blood Count 4.13 x10^6/uL (4.30-5.70) Hemoglobin 12.6 g/dL (13.0-17.5) Hematocrit 37.0 % (39.0-53.0) Mean Corpuscular Volume 90 fL (79-100) Mean Corpuscular Hemoglobin 31 pg (25-35) Mean Corpuscular Hemoglobin Concent 34 g/dL (31-37) Red Cell Distribution Width 14.4 % (11.5-14.5) Platelet Count 158 x10^3/uL (140-400) Prothrombin Time 26.2 SEC (11.7-14.0) Prothromb Time International Ratio 2.5 (0.8-1.1) Sodium Level 143 mmol/L (136-145) 143 mmol/L (136-145) Potassium Level 3.7 mmol/L (3.5-5.1) 2.9 mmol/L (3.5-5.1) Chloride Level 103 mmol/L (98-107) 102 mmol/L (98-107) Carbon Dioxide Level 25 mmol/L (21-32) 28 mmol/L (21-32) Anion Gap 15 (6-14) 13 (6-14) Blood Urea Nitrogen 22 mg/dL (8-26) 18 mg/dL (8-26) Creatinine 2.2 mg/dL (0.7-1.3) 2.0 mg/dL (0.7-1.3) Estimated GFR (Cockcroft-Gault) 42.5 47.4 BUN/Creatinine Ratio 10 (6-20) Glucose Level 223 mg/dL (70-99) 290 mg/dL (70-99) Lactic Acid Level 7.1 mmol/L (0.4-2.0) 6.8 mmol/L (0.4-2.0) Calcium Level 7.3 mg/dL (8.5-10.1) 7.3 mg/dL (8.5-10.1) Ionized Calcium 0.91 mmol/L (1.13-1.32) Phosphorus Level 2.3 mg/dL (2.6-4.7) 1.2 mg/dL (2.6-4.7) Magnesium Level 3.8 mg/dL (1.8-2.4) 3.5 mg/dL (1.8-2.4) Total Bilirubin 0.7 mg/dL (0.2-1.0) Aspartate Amino Transf (AST/SGOT) 246 U/L (15-37) Alanine Aminotransferase (ALT/SGPT) 73 U/L (16-63) Alkaline Phosphatase 49 U/L (46-116) Total Protein 5.2 g/dL (6.4-8.2) Albumin 3.0 g/dL (3.4-5.0) Albumin/Globulin Ratio 1.4 (1.0-1.7) Glucose (Fingerstick) 257 mg/dL (70-99) Test 04/21/21 01:48 04/21/21 06:20 04/21/21 06:40 04/21/21 07:45 Heparin Anti-Xa Act, Unfractionated 0.47 IU/mL (0.30-0.70) 0.68 IU/mL (0.30-0.70) White Blood Count 7.6 x10^3/uL (4.0-11.0) Red Blood Count 4.43 x10^6/uL (4.30-5.70) Hemoglobin 13.3 g/dL (13.0-17.5) Hematocrit 39.4 % (39.0-53.0) Mean Corpuscular Volume 89 fL (79-100) Mean Corpuscular Hemoglobin 30 pg (25-35) Mean Corpuscular Hemoglobin Concent 34 g/dL (31-37) Red Cell Distribution Width 14.3 % (11.5-14.5) Platelet Count 129 x10^3/uL (140-400) Neutrophils (%) (Auto) 77 % (31-73) Lymphocytes (%) (Auto) 17 % (24-48) Monocytes (%) (Auto) 6 % (0-9) Eosinophils (%) (Auto) 0 % (0-3) Basophils (%) (Auto) 0 % (0-3) Neutrophils # (Auto) 5.9 x10^3/uL (1.8-7.7) Lymphocytes # (Auto) 1.3 x10^3/uL (1.0-4.8) Monocytes # (Auto) 0.5 x10^3/uL (0.0-1.1) Eosinophils # (Auto) 0.0 x10^3/uL (0.0-0.7) Basophils # (Auto) 0.0 x10^3/uL (0.0-0.2) Prothrombin Time 31.3 SEC (11.7-14.0) Prothromb Time International Ratio 3.1 (0.8-1.1) Sodium Level 145 mmol/L (136-145) Potassium Level 3.3 mmol/L (3.5-5.1) Chloride Level 107 mmol/L (98-107) Carbon Dioxide Level 28 mmol/L (21-32) Anion Gap 10 (6-14) Blood Urea Nitrogen 13 mg/dL (8-26) Creatinine 1.4 mg/dL (0.7-1.3) Estimated GFR (Cockcroft-Gault) 71.5 Glucose Level 143 mg/dL (70-99) Calcium Level 8.6 mg/dL (8.5-10.1) Phosphorus Level 2.1 mg/dL (2.6-4.7) Magnesium Level 3.5 mg/dL (1.8-2.4) Urine Collection Type Unknown Urine Color Yellow Urine Clarity Clear Urine pH 7.0 (<5.0-8.0) Urine Specific Bypro <=1.005 (1.000-1.030) Urine Protein Negative mg/dL (NEG-TRACE) Urine Glucose (UA) Negative mg/dL (NEG) Urine Ketones (Stick) Trace mg/dL (NEG) Urine Blood Moderate (NEG) Urine Nitrite Negative (NEG) Urine Bilirubin Negative (NEG) Urine Urobilinogen Dipstick 0.2 mg/dL (0.2 mg/dL) Urine Leukocyte Esterase Negative (NEG) Urine RBC 1-2 /HPF (0-2) Urine WBC Occ /HPF (0-4) Urine Squamous Epithelial Cells Occ /LPF Urine Bacteria 0 /HPF (0-FEW) O2 Saturation 99 % (92-99) Arterial Blood pH 7.64 (7.35-7.45) Arterial Blood pCO2 at Patient Temp 24 mmHg (35-46) Arterial Blood pO2 at Patient Temp 210 mmHg (85-108) Arterial Blood HCO3 25 mmol/L (21-28) Arterial Blood Base Excess 5 mmol/L (-3-3) FiO2 50/vent Test 04/21/21 15:50 04/22/21 06:40 04/22/21 06:45 04/22/21 07:45 Sodium Level 153 mmol/L (136-145) 159 mmol/L (136-145) Potassium Level 4.0 mmol/L (3.5-5.1) 3.6 mmol/L (3.5-5.1) Chloride Level 114 mmol/L (98-107) 120 mmol/L (98-107) Carbon Dioxide Level 31 mmol/L (21-32) 28 mmol/L (21-32) Anion Gap 8 (6-14) 11 (6-14) Blood Urea Nitrogen 12 mg/dL (8-26) 20 mg/dL (8-26) Creatinine 1.8 mg/dL (0.7-1.3) 2.5 mg/dL (0.7-1.3) Estimated GFR (Cockcroft-Gault) 53.5 36.6 Glucose Level 120 mg/dL (70-99) 87 mg/dL (70-99) Calcium Level 8.5 mg/dL (8.5-10.1) 8.4 mg/dL (8.5-10.1) Phosphorus Level 1.7 mg/dL (2.6-4.7) 1.5 mg/dL (2.6-4.7) Magnesium Level 3.2 mg/dL (1.8-2.4) White Blood Count 6.6 x10^3/uL (4.0-11.0) Red Blood Count 4.54 x10^6/uL (4.30-5.70) Hemoglobin 13.7 g/dL (13.0-17.5) Hematocrit 40.9 % (39.0-53.0) Mean Corpuscular Volume 90 fL (79-100) Mean Corpuscular Hemoglobin 30 pg (25-35) Mean Corpuscular Hemoglobin Concent 33 g/dL (31-37) Red Cell Distribution Width 14.4 % (11.5-14.5) Platelet Count 87 x10^3/uL (140-400) Prothrombin Time 25.0 SEC (11.7-14.0) Prothromb Time International Ratio 2.3 (0.8-1.1) BUN/Creatinine Ratio 8 (6-20) Total Bilirubin 2.0 mg/dL (0.2-1.0) Aspartate Amino Transf (AST/SGOT) 176 U/L (15-37) Alanine Aminotransferase (ALT/SGPT) 101 U/L (16-63) Alkaline Phosphatase 61 U/L (46-116) Total Protein 5.0 g/dL (6.4-8.2) Albumin 2.6 g/dL (3.4-5.0) Albumin/Globulin Ratio 1.1 (1.0-1.7) O2 Saturation 99 % (92-99) Arterial Blood pH 7.43 (7.35-7.45) Arterial Blood pCO2 at Patient Temp 36 mmHg (35-46) Arterial Blood pO2 at Patient Temp 150 mmHg (85-108) Arterial Blood HCO3 23 mmol/L (21-28) Arterial Blood Base Excess -1 mmol/L (-3-3) FiO2 40/vent Laboratory Tests Test 04/22/21 06:40 04/22/21 06:45 04/22/21 07:45 Phosphorus Level 1.5 mg/dL (2.6-4.7) White Blood Count 6.6 x10^3/uL (4.0-11.0) Red Blood Count 4.54 x10^6/uL (4.30-5.70) Hemoglobin 13.7 g/dL (13.0-17.5) Hematocrit 40.9 % (39.0-53.0) Mean Corpuscular Volume 90 fL (79-100) Mean Corpuscular Hemoglobin 30 pg (25-35) Mean Corpuscular Hemoglobin Concent 33 g/dL (31-37) Red Cell Distribution Width 14.4 % (11.5-14.5) Platelet Count 87 x10^3/uL (140-400) Prothrombin Time 25.0 SEC (11.7-14.0) Prothromb Time International Ratio 2.3 (0.8-1.1) Sodium Level 159 mmol/L (136-145) Potassium Level 3.6 mmol/L (3.5-5.1) Chloride Level 120 mmol/L (98-107) Carbon Dioxide Level 28 mmol/L (21-32) Anion Gap 11 (6-14) Blood Urea Nitrogen 20 mg/dL (8-26) Creatinine 2.5 mg/dL (0.7-1.3) Estimated GFR (Cockcroft-Gault) 36.6 BUN/Creatinine Ratio 8 (6-20) Glucose Level 87 mg/dL (70-99) Calcium Level 8.4 mg/dL (8.5-10.1) Total Bilirubin 2.0 mg/dL (0.2-1.0) Aspartate Amino Transf (AST/SGOT) 176 U/L (15-37) Alanine Aminotransferase (ALT/SGPT) 101 U/L (16-63) Alkaline Phosphatase 61 U/L (46-116) Total Protein 5.0 g/dL (6.4-8.2) Albumin 2.6 g/dL (3.4-5.0) Albumin/Globulin Ratio 1.1 (1.0-1.7) O2 Saturation 99 % (92-99) Arterial Blood pH 7.43 (7.35-7.45) Arterial Blood pCO2 at Patient Temp 36 mmHg (35-46) Arterial Blood pO2 at Patient Temp 150 mmHg (85-108) Arterial Blood HCO3 23 mmol/L (21-28) Arterial Blood Base Excess -1 mmol/L (-3-3) FiO2 40/vent Medications Current Medications Sodium Bicarbonate 100 meq/Dextrose 1,100 ml @ 60 mls/hr [id number] IV ; Start 04/20/21 at 03:30; Stop 04/20/21 at 05:54; Status DC Diltiazem HCl 125 mg/Sodium Chloride 125 ml @ 5 mls/hr CONT PRN IV PER PROTOCOL; Start 04/20/21 at 03:30 Sodium Chloride 1,000 ml @ 1,000 mls/hr 1X ONCE IV Last administered on 04/20/21at 05:45; Start 04/20/21 at 05:45; Stop 04/20/21 at 06:44; Status DC Sodium Bicarbonate 150 meq/Dextrose 1,150 ml @ 125 mls/hr Q9H12M IV Last administered on 04/20/21at 22:54; Start 04/20/21 at 06:00; Stop 04/21/21 at 01:01; Status DC Sodium Bicarbonate (Sodium Bicarb Adult 8.4% Syr) 50 meq STK-MED ONCE .ROUTE ; Start 04/20/21 at 07:47; Stop 04/20/21 at 07:47; Status DC Rocuronium Frederick (Zemuron) 50 mg STK-MED ONCE .ROUTE ; Start 04/20/21 at 07:49; Stop 04/20/21 at 07:49; Status DC Sodium Bicarbonate (Sodium Bicarb Adult 8.4% Syr) 100 meq 1X ONCE IV Last administered on 04/20/21at 08:09; Start 04/20/21 at 08:00; Stop 04/20/21 at 08:01; Status DC Etomidate (Amidate) 20 mg STK-MED ONCE IV ; Start 04/20/21 at 07:49; Stop 04/20/21 at 07:50; Status DC Etomidate (Amidate) 20 mg STK-MED ONCE IV ; Start 04/20/21 at 07:54; Stop 04/20/21 at 07:54; Status DC Fentanyl Citrate 30 ml @ 2.5 mls/hr CONT PRN IV SEE PROTOCOL Last administered on 04/20/21at 10:17; Start 04/20/21 at 08:00; Stop 04/20/21 at 15:23; Status DC Midazolam HCl 100 ml @ 0 mls/hr CONT PRN IV SEE PROTOCOL Last administered on 04/22/21at 11:06; Start 04/20/21 at 08:00 Propofol 100 ml @ 2.865 mls/ hr CONT PRN IV PER PROTOCOL; Start 04/20/21 at 08:00 Glycerin/ Hypromellose/ Polyethylene (Artificial Tears) 1 drop PRN Q1HR PRN OU DRY EYE; Start 04/20/21 at 08:00 Midazolam HCl (Versed) 5 mg PRN 1X PRN IVP VENT INDUCTION; Start 04/20/21 at 08:00; Stop 04/21/21 at 07:59; Status DC Sodium Chloride 500 ml @ 500 mls/hr 1X PRN PRN IV SEE COMMENTS; Start 04/20 at 08:00 Atropine Sulfate (ATROPINE 0.5mg SYRINGE) 0.5 mg PRN Q5MIN PRN IV SEE COMMENTS; Start 04/20/21 at 08:00 Norepinephrine Bitartrate 8 mg/ Dextrose 258 ml @ 18.479 mls/ hr CONT PRN IV PER PROTOCOL Last administered on 04/20/21at 18:06; Start 04/20/21 at 08:00; Stop 04/20/21 at 20:35; Status DC Dextrose (Dextrose 50%-Water Syringe) 25 gm 1X ONCE IV Last administered on 04/20/21at 08:09; Start 04/20/21 at 08:15; Stop 04/20/21 at 08:16; Status DC Dextrose (Dextrose 50%-Water Syringe) 25 gm STK-MED ONCE IV ; Start 04/20/21 at 08:07; Stop 04/20/21 at 08:08; Status DC Pantoprazole Sodium 80 mg/ Sodium Chloride 100 ml @ 10 mls/hr Q10H IV Last administered on 04/22/21at 11:06; Start 04/20/21 at 09:00 Sodium Chloride 1,000 ml @ 1,000 mls/hr 1X ONCE IV Last administered on 04/20/21at 08:54; Start 04/20/21 at 09:00; Stop 04/20/21 at 09:59; Status DC Vecuronium Frederick (Norcuron Bolus) 6 mg PRN Q6HRS PRN IV VENTILATOR COMPLIANCE Last administered on 04/20/21at 15:34; Start 04/20/21 at 11:00 Sodium Bicarbonate (Sodium Bicarb Adult 8.4% Syr) 100 meq Q2H IV Last administered on 04/20/21at 13:32; Start 04/20/21 at 13:00; Stop 04/20/21 at 15:01; Status DC Lidocaine HCl (Buffered Lidocaine 1%) 3 ml STK-MED ONCE .ROUTE ; Start 04/20/21 at 13:02; Stop 04/20/21 at 13:02; Status DC Lidocaine HCl (Buffered Lidocaine 1%) 6 ml 1X ONCE INJ Last administered on 04/20/21at 13:46; Start 04/20/21 at 13:45; Stop 04/20/21 at 13:46; Status DC Potassium Chloride 20 meq/ Magnesium Sulfate 15 meq/Calcium Chloride 5 meq/ Bicarbonate Dialysis Soln w/ out KCl 5,017.3214 ml @ 1,500 mls/hr Q3H21M IV Last administered on 04/20/21at 18:15; Start 04/20/21 at 15:00; Stop 04/20/21 at 19:13; Status DC Potassium Chloride 20 meq/ Magnesium Sulfate 15 meq/Calcium Chloride 5 meq/ Bicarbonate Dialysis Soln w/ out KCl 5,017.3214 ml @ 1,500 mls/hr Q3H21M IV Last administered on 04/20/21at 18:14; Start 04/20/21 at 15:00; Stop 04/20/21 at 19:13; Status DC Sodium Bicarbonate 150 meq/Dextrose 1,150 ml @ 500 mls/hr Q2H18M IV Last administered on 04/20/21at 22:43; Start 04/20/21 at 15:00; Stop 04/21/21 at 01:01; Status DC Fentanyl Citrate 55 ml @ 0 mls/hr CONT PRN IV SEE PROTOCOL Last administered on 04/22/21at 03:45; Start 04/20/21 at 14:15 Sodium Bicarbonate (Sodium Bicarb Adult 8.4% Syr) 100 meq 1X ONCE IV Last administered on 04/20/21at 15:10; Start 04/20/21 at 15:15; Stop 04/20/21 at 15:16; Status DC Amiodarone HCl 75 mg/Dextrose 101.5 ml @ 618 mls/hr 1X ONCE IV Last administered on 04/20/21at 15:44; Start 04/20/21 at 16:00; Stop 04/20/21 at 16:09; Status DC Amiodarone HCl 450 mg/Dextrose 259 ml @ 0 mls/hr CONT PRN IV SEE I/O RECORD Last administered on 04/21/21at 02:52; Start 04/20/21 at 15:30; Stop 04/21/21 at 15:30; Status DC Adenosine (Adenocard) 6 mg STK-MED ONCE IV ; Start 04/20/21 at 16:10; Stop 04/20/21 at 16:10; Status DC Adenosine (Adenocard) 6 mg STK-MED ONCE IV ; Start 04/20/21 at 16:15; Stop 04/20/21 at 16:16; Status DC Adenosine (Adenocard) 6 mg 1X ONCE IV Last administered on 04/20/21at 16:33; Start 04/20/21 at 16:30; Stop 04/20/21 at 16:31; Status DC Adenosine (Adenocard) 12 mg 1X ONCE IV Last administered on 04/20/21at 16:32; Start 04/20/21 at 16:30; Stop 04/20/21 at 16:31; Status DC Vecuronium Frederick 50 mg/ Sodium Chloride 50 ml @ 4.584 mls/ hr CONT PRN IV PER PROTOCOL Last administered on 04/22/21at 02:04; Start 04/20/21 at 16:30 Heparin Sodium/ Dextrose 250 ml @ 10 mls/hr CONT PRN IV PER PROTOCOL Last administered on 04/20/21at 19:32; Start 04/20/21 at 19:15; Stop 04/21/21 at 10:48; Status DC Heparin Sodium (Porcine) (Heparin Sodium) 2,400 unit PRN Q6HRS PRN IV FOR UFH LEVEL LESS THAN 0.2; Start 04/20/21 at 19:15; Stop 04/21/21 at 10:48; Status DC Potassium Chloride 20 meq/ Magnesium Sulfate 2.5 meq/Calcium Chloride 5 meq/ Bicarbonate Dialysis Soln w/ out KCl 5,014.1964 ml @ 1,500 mls/hr Q3H21M IV Last administered on 04/21/21at 07:03; Start 04/20/21 at 21:00; Stop 04/21/21 at 11:07; Status DC Potassium Chloride 20 meq/ Magnesium Sulfate 2.5 meq/Calcium Chloride 5 meq/ Bicarbonate Dialysis Soln w/ out KCl 5,014.1964 ml @ 1,500 mls/hr Q3H21M IV Last administered on 04/21/21at 07:03; Start 04/20/21 at 21:00; Stop 04/21/21 at 11:07; Status DC Epinephrine HCl 5 mg/Sodium Chloride 255 ml @ 29.223 mls/ hr CONT PRN IV SEE I/O RECORD; Start 04/20/21 at 20:30 Norepinephrine Bitartrate 32 mg/ Dextrose 250 ml @ 4.453 mls/ hr CONT PRN IV SEE I/O RECORD Last administered on 04/22/21at 11:34; Start 04/20/21 at 20:45 Digoxin (Lanoxin) 250 mcg 1X ONCE IV Last administered on 04/20/21at 21:54; Start 04/20/21 at 21:45; Stop 04/20/21 at 21:47; Status DC Digoxin (Lanoxin) 250 mcg 1X ONCE IV Last administered on 04/20/21at 22:35; Start 04/20/21 at 22:15; Stop 04/20/21 at 22:16; Status DC Amiodarone HCl 300 mg/Dextrose 106 ml @ 618 mls/hr 1X ONCE IV Last administered on 04/20/21at 23:43; Start 04/20/21 at 23:30; Stop 04/20/21 at 23:40; Status DC Digoxin (Lanoxin) 250 mcg 1X ONCE IV ; Start 04/21/21 at 04:30; Stop 04/21/21 at 04:32; Status DC Potassium Phosphate 13.3 mmol/Sodium Chloride 104.4333 ml @ 100 mls/hr Q1H IV Last administered on 04/21/21at 04:48; Start 04/21/21 at 02:00; Stop 04/21/21 at 04:59; Status DC Potassium Chloride 20 meq/ Magnesium Sulfate 2.5 meq/Calcium Chloride 5 meq/ Bicarbonate Dialysis Soln w/ out KCl 5,014.1964 ml @ 1,500 mls/hr Q3H21M IV Last administered on 04/21/21at 01:44; Start 04/21/21 at 01:45; Stop 04/21/21 at 11:07; Status DC Sodium Chloride 1,000 ml @ 200 mls/hr Q5H ONCE IV Last administered on 03/25 at 11:10; Start 04/21/21 at 10:45; Stop 04/21/21 at 15:44; Status DC Amiodarone HCl 450 mg/Dextrose 259 ml @ 17 mls/hr CONT PRN IV SEE I/O RECORD Last administered on 04/21/21at 20:08; Start 04/21/21 at 19:30; Stop 04/22/21 at 19:29 Dextrose 1,000 ml @ 150 mls/hr CONT PRN IV SEE I/O RECORD Last administered on 04/22/21at 08:47; Start 04/22/21 at 08:30 Potassium Phosphate 15 mmol/ Sodium Chloride 105 ml @ 52.5 mls/hr PRN Q2HRS PRN IV if phos < 2.6; Start 04/22/21 at 09:00; Stop 04/22/21 at 10:01; Status DC Potassium Phosphate 15 mmol/ Sodium Chloride 105 ml @ 52.5 mls/hr 1X ONCE IV Last administered on 04/22/21at 10:16; Start 04/22/21 at 11:00; Stop 04/22/21 at 12:59; Status DC Amiodarone HCl 450 mg/Dextrose 259 ml @ 17 mls/hr CONT PRN IV SEE I/O RECORD Last administered on 04/22/21at 12:14; Start 04/22/21 at 12:00; Stop 04/23/21 at 11:59 Vitals/I & O Vital Sign - Last 24 Hours 10/30/21 10/30/21 10/30/21 10/30/21 16:30 16:32 17:22 17:36 Temp 99.9 99.7 99.9 99.7 Pulse 113 103 Resp 16 16 B/P (MAP) 127/73 93/69 Pulse Ox 99 99 99 O2 Delivery Ventilator Mechanical Ventilator Ventilator Ventilator 04/21/21 04/21/21 04/21/21 04/21/21 18:06 19:00 20:00 20:00 Temp 99.5 99.0 99.5 99.0 Pulse 103 102 102 Resp 16 16 16 B/P (MAP) 111/74 105/69 105/72 Pulse Ox 99 99 99 O2 Delivery Ventilator Ventilator Ventilator Mechanical Ventilator 04/21/21 04/21/21 04/21/21 04/21/21 20:21 21:00 22:00 23:00 Temp 98.6 98.6 Pulse 100 100 100 Resp 16 16 16 B/P (MAP) 102/69 99/71 87/68 Pulse Ox 99 99 99 99 O2 Delivery Ventilator Ventilator Ventilator Ventilator 04/21/21 04/22/21 04/22/21 04/22/21 23:24 00:00 00:00 01:00 Temp 98.2 98.2 Pulse 96 96 Resp 16 16 B/P (MAP) 105/71 103/70 Pulse Ox 99 100 100 O2 Delivery Ventilator Mechanical Ventilator Ventilator Ventilator 04/22/21 04/22/21 04/22/21 04/22/21 02:00 02:11 03:00 04:00 Temp 97.9 97.9 97.9 97.9 Pulse 96 94 96 Resp 16 16 16 B/P (MAP) 102/68 99/63 94/67 Pulse Ox 100 99 100 100 O2 Delivery Ventilator Ventilator Ventilator Ventilator 04/22/21 04/22/21 04/22/21 04/22/21 04:00 04:15 05:00 05:15 Pulse 94 Resp 16 16 B/P (MAP) 85/58 Pulse Ox 100 100 100 O2 Delivery Mechanical Ventilator Ventilator Ventilator Ventilator O2 Flow Rate 3.0 04/22/21 04/22/21 04/22/21 04/22/21 06:00 07:00 07:48 08:00 Temp 97.5 97.9 97.5 97.9 Pulse 92 94 104 Resp 16 16 16 B/P (MAP) 78/56 94/68 85/64 Pulse Ox 99 100 100 100 O2 Delivery Ventilator Ventilator Ventilator Ventilator 04/22/21 04/22/21 04/22/21 04/22/21 08:00 09:03 10:02 10:16 Pulse 105 106 Resp 16 16 B/P (MAP) 100/75 106/75 Pulse Ox 100 100 100 O2 Delivery Mechanical Ventilator Ventilator Ventilator Ventilator 04/22/21 04/22/21 04/22/21 04/22/21 11:08 11:15 11:16 11:20 Temp 98.2 98.2 Pulse 107 Resp 16 B/P (MAP) 103/75 78/56 75/59 Pulse Ox 100 100 O2 Delivery Ventilator Ventilator 04/22/21 04/22/21 04/22/21 04/22/21 11:38 11:55 11:56 13:05 Temp 98.2 98.2 98.2 98.2 Pulse 111 104 Resp 16 16 B/P (MAP) 140/94 144/92 111/81 Pulse Ox 99 99 O2 Delivery Mechanical Ventilator Ventilator Ventilator 04/22/21 04/22/21 04/22/21 13:06 14:04 15:47 Temp 98.2 98.2 Pulse 106 Resp 16 B/P (MAP) 105/75 Pulse Ox 99 99 99 O2 Delivery Ventilator Ventilator Ventilator Intake and Output 04/21/21 04/21/21 04/22/21 15:00 23:00 07:00 Intake Total 587 ml 1012 ml Output Total 1950 ml 1635 ml 2970 ml Balance -1950 ml -1048 ml -1958 ml Justifications for Admission Other Justification KARENA CROSS MD Apr 22, 2021 15:55
[2021-04-23] VITALS (15 sets, daily range): BP systolic 95–137; BP diastolic 62–93
[2021-04-23] MEDS: AMIODARONE 450 MG in IV DEXTROSE 5% 250 ML IV PRN (04:04)
[2021-04-23] MEDS: IV DEXTROSE 5% 1,000 ML IV PRN (06:22)
[2021-04-23 06:42] LABS: BASO % 0 % (0-3); EOS # 0.2 x10^3/uL (0.0-0.7); EOS % 3 % (0-3); HEMATOCRIT 41.4 % (39.0-53.0); HEMOGLOBIN 13.6 g/dL (13.0-17.5); LYMPH # 0.9 x10^3/uL (1.0-4.8); LYMPH % 15 % (24-48); MEAN CORPUSCULAR HEMOGLOBIN 30 pg (25-35); MEAN CORPUSCULAR HGB CONC 33 g/dL (31-37); MEAN CORPUSCULAR VOLUME 91 fL (79-100); MONO # 0.2 x10^3/uL (0.0-1.1); MONO % 3 % (0-9); NEUT # 4.6 x10^3/uL (1.8-7.7); NEUT % 79 % (31-73); RED BLOOD COUNT 4.57 x10^6/uL (4.30-5.70); RED CELL DISTRIBUTION WIDTH 14.8 % (11.5-14.5); WHITE BLOOD COUNT 5.8 x10^3/uL (4.0-11.0)
--- NOTE | 2021-04-23 06:44 | RAD ---
XR CHEST 1V 04/23/2021 5:11 AM INDICATION: Respiratory failure COMPARISON: 04/22/2021 TECHNIQUE: Portable frontal view of the chest is provided. FINDINGS/ IMPRESSION: Endotracheal tube and nasogastric tube are in similar position. The cardiomediastinal silhouette is within normal limits. Lungs are clear. There are no significant pleural effusions. There is no pulmonary vascular congestion. No pneumothora x. No suspicious osseous abnormality. Electronically signed by: Arabella Santana MD (04/23/2021 6:42 AM) [facility]
[2021-04-23 06:47] LABS: PLATELET COUNT 48 x10^3/uL (140-400)
[2021-04-23 07:15] LABS: ALBUMIN 2.3 g/dL (3.4-5.0); CALCIUM 7.8 mg/dL (8.5-10.1); GFR 29.7; PHOSPHORUS 2.2 mg/dL (2.6-4.7); TOTAL BILIRUBIN 2.4 mg/dL (0.2-1.0); TOTAL PROTEIN 4.7 g/dL (6.4-8.2)
[2021-04-23 07:36] LABS: POTASSIUM 2.3 mmol/L (3.5-5.1)
[2021-04-23] MEDS: PANTOPRAZOLE SODIUM IV DRIP 80 MG in IV NORMAL SALINE 100ML 100 ML IV SCH (07:37)
[2021-04-23] MEDS: NOREPINEPHRINE VIAL 32 MG in IV D5W 250ML IV PRN (07:38)
[2021-04-23 07:56] LABS: BASE EXCESS ABG 3 mmol/L (-3-3); HCO3 ABG 28 mmol/L (21-28); PCO2 ABG 45 mmHg (35-46); PO2 ABG 66 mmHg (85-108); SAT O2 ABG 93 % (92-99)
[2021-04-23 07:57] LABS: FIO2 ABG 40
--- NOTE | 2021-04-23 08:29 | PN ---
DATE: 04/23/2021 SUBJECTIVE: The patient continued to be intubated and mechanically ventilated. His vecuronium and all sedating medications were discontinued for more than 24 hours. He does not respond to verbal or painful stimuli. Did an apnea test, during which he did not take any spontaneous breathing. PHYSICAL EXAMINATION: GENERAL: When I examined him, he looked well and was clearly in no apparent respiratory distress. No pallor, jaundice, cyanosis or thyromegaly. No jugular venous distention. No limb edema. VITAL SIGNS: His heart rate was 104, blood pressure was 102/67, temperature was 98.8, respiratory rate was 16 and oxygen saturation was 98% on FiO2 of 40%. HEAD, EYES, EARS, NOSE AND THROAT: Normocephalic, atraumatic. NECK: Supple. HEART: Normal first and second heart sounds. No gallop or murmur. CHEST: Shows central trachea, equal bilateral chest expansion air entry, vesicular breath sounds. No crepitation or rhonchi. ABDOMEN: Distended, soft, nontender. NEUROLOGIC: He is unresponsive. His pupils are fixed, dilated. Has no gag reflex and on the apnea test he does not take any spontaneous breathing. LABORATORY DATA: This morning showed a white cell count 5800, hemoglobin 13.6, hematocrit 41, MCV 91 and platelet count of 48,000. His chemistry showed a serum sodium 155, potassium 2.3, chloride 116, bicarbonate 29, anion gap of 10, BUN 29, creatinine 3. Estimated GFR was 29 mL per minute. His glucose 134, calcium was 7.8. His phosphorus was 2.2. Total bilirubin 2.4. AST has dramatically risen to 2110, ALT has also risen to 675, alkaline phosphatase is normal. Total protein 4.7, albumin was 2.3. ASSESSMENT: 1. The patient probably is brain as he has no gag reflex and no spontaneous breathing. 2. Acute respiratory failure, continued to be intubated and mechanically ventilated. He is off sedation and paralytic agent. 3. Acute kidney injury. 4. He went into atrial fibrillation with rapid ventricular response, was treated with amiodarone. 5. He has severe hypernatremia. 6. Hypokalemia. PLAN: Now that he is off the sedation and paralytic agent, await evaluation by the neurologist and as he is brain probably need to contact [facility]. AMM/JESSICA DR: [place] TID: [id number]
--- NOTE | 2021-04-23 08:35 | PDOC ---
PULMONARY PROGRESS NOTES DATE: 04/23/21 TIME: 08:35 Vitals Vital Signs Date Time Temp Pulse Resp B/P (MAP) Pulse Ox O2 Delivery O2 Flow Rate FiO2 04/23/21 07:40 98 Ventilator 04/23/21 07:00 104 16 102/67 04/23/21 04:00 98.8 98.8 Comments on vent sedated HEENT: Other (nc at orally intubated nose clear ) Labs Laboratory Tests Test 04/21/21 15:50 04/22/21 06:40 04/22/21 06:45 04/22/21 07:45 Sodium Level 153 mmol/L (136-145) 159 mmol/L (136-145) Potassium Level 4.0 mmol/L (3.5-5.1) 3.6 mmol/L (3.5-5.1) Chloride Level 114 mmol/L (98-107) 120 mmol/L (98-107) Carbon Dioxide Level 31 mmol/L (21-32) 28 mmol/L (21-32) Anion Gap 8 (6-14) 11 (6-14) Blood Urea Nitrogen 12 mg/dL (8-26) 20 mg/dL (8-26) Creatinine 1.8 mg/dL (0.7-1.3) 2.5 mg/dL (0.7-1.3) Estimated GFR (Cockcroft-Gault) 53.5 36.6 Glucose Level 120 mg/dL (70-99) 87 mg/dL (70-99) Calcium Level 8.5 mg/dL (8.5-10.1) 8.4 mg/dL (8.5-10.1) Phosphorus Level 1.7 mg/dL (2.6-4.7) 1.5 mg/dL (2.6-4.7) Magnesium Level 3.2 mg/dL (1.8-2.4) White Blood Count 6.6 x10^3/uL (4.0-11.0) Red Blood Count 4.54 x10^6/uL (4.30-5.70) Hemoglobin 13.7 g/dL (13.0-17.5) Hematocrit 40.9 % (39.0-53.0) Mean Corpuscular Volume 90 fL (79-100) Mean Corpuscular Hemoglobin 30 pg (25-35) Mean Corpuscular Hemoglobin Concent 33 g/dL (31-37) Red Cell Distribution Width 14.4 % (11.5-14.5) Platelet Count 87 x10^3/uL (140-400) Prothrombin Time 25.0 SEC (11.7-14.0) Prothromb Time International Ratio 2.3 (0.8-1.1) BUN/Creatinine Ratio 8 (6-20) Total Bilirubin 2.0 mg/dL (0.2-1.0) Aspartate Amino Transf (AST/SGOT) 176 U/L (15-37) Alanine Aminotransferase (ALT/SGPT) 101 U/L (16-63) Alkaline Phosphatase 61 U/L (46-116) Total Protein 5.0 g/dL (6.4-8.2) Albumin 2.6 g/dL (3.4-5.0) Albumin/Globulin Ratio 1.1 (1.0-1.7) O2 Saturation 99 % (92-99) Arterial Blood pH 7.43 (7.35-7.45) Arterial Blood pCO2 at Patient Temp 36 mmHg (35-46) Arterial Blood pO2 at Patient Temp 150 mmHg (85-108) Arterial Blood HCO3 23 mmol/L (21-28) Arterial Blood Base Excess -1 mmol/L (-3-3) FiO2 40/vent Test 04/22/21 23:23 04/23/21 06:05 04/23/21 07:40 Glucose (Fingerstick) 109 mg/dL (70-99) White Blood Count 5.8 x10^3/uL (4.0-11.0) Red Blood Count 4.57 x10^6/uL (4.30-5.70) Hemoglobin 13.6 g/dL (13.0-17.5) Hematocrit 41.4 % (39.0-53.0) Mean Corpuscular Volume 91 fL (79-100) Mean Corpuscular Hemoglobin 30 pg (25-35) Mean Corpuscular Hemoglobin Concent 33 g/dL (31-37) Red Cell Distribution Width 14.8 % (11.5-14.5) Platelet Count 48 x10^3/uL (140-400) Neutrophils (%) (Auto) 79 % (31-73) Lymphocytes (%) (Auto) 15 % (24-48) Monocytes (%) (Auto) 3 % (0-9) Eosinophils (%) (Auto) 3 % (0-3) Basophils (%) (Auto) 0 % (0-3) Neutrophils # (Auto) 4.6 x10^3/uL (1.8-7.7) Lymphocytes # (Auto) 0.9 x10^3/uL (1.0-4.8) Monocytes # (Auto) 0.2 x10^3/uL (0.0-1.1) Eosinophils # (Auto) 0.2 x10^3/uL (0.0-0.7) Basophils # (Auto) 0.0 x10^3/uL (0.0-0.2) Sodium Level 155 mmol/L (136-145) Potassium Level 2.3 mmol/L (3.5-5.1) Chloride Level 116 mmol/L (98-107) Carbon Dioxide Level 29 mmol/L (21-32) Anion Gap 10 (6-14) Blood Urea Nitrogen 29 mg/dL (8-26) Creatinine 3.0 mg/dL (0.7-1.3) Estimated GFR (Cockcroft-Gault) 29.7 BUN/Creatinine Ratio 10 (6-20) Glucose Level 134 mg/dL (70-99) Calcium Level 7.8 mg/dL (8.5-10.1) Phosphorus Level 2.2 mg/dL (2.6-4.7) Total Bilirubin 2.4 mg/dL (0.2-1.0) Aspartate Amino Transf (AST/SGOT) 2110 U/L (15-37) Alanine Aminotransferase (ALT/SGPT) 675 U/L (16-63) Alkaline Phosphatase 104 U/L (46-116) Total Protein 4.7 g/dL (6.4-8.2) Albumin 2.3 g/dL (3.4-5.0) Albumin/Globulin Ratio 1.0 (1.0-1.7) O2 Saturation 93 % (92-99) Arterial Blood pH 7.41 (7.35-7.45) Arterial Blood pCO2 at Patient Temp 45 mmHg (35-46) Arterial Blood pO2 at Patient Temp 66 mmHg (85-108) Arterial Blood HCO3 28 mmol/L (21-28) Arterial Blood Base Excess 3 mmol/L (-3-3) FiO2 40 Laboratory Tests Test 04/22/21 23:23 04/23/21 06:05 04/23/21 07:40 Glucose (Fingerstick) 109 mg/dL (70-99) White Blood Count 5.8 x10^3/uL (4.0-11.0) Red Blood Count 4.57 x10^6/uL (4.30-5.70) Hemoglobin 13.6 g/dL (13.0-17.5) Hematocrit 41.4 % (39.0-53.0) Mean Corpuscular Volume 91 fL (79-100) Mean Corpuscular Hemoglobin 30 pg (25-35) Mean Corpuscular Hemoglobin Concent 33 g/dL (31-37) Red Cell Distribution Width 14.8 % (11.5-14.5) Platelet Count 48 x10^3/uL (140-400) Neutrophils (%) (Auto) 79 % (31-73) Lymphocytes (%) (Auto) 15 % (24-48) Monocytes (%) (Auto) 3 % (0-9) Eosinophils (%) (Auto) 3 % (0-3) Basophils (%) (Auto) 0 % (0-3) Neutrophils # (Auto) 4.6 x10^3/uL (1.8-7.7) Lymphocytes # (Auto) 0.9 x10^3/uL (1.0-4.8) Monocytes # (Auto) 0.2 x10^3/uL (0.0-1.1) Eosinophils # (Auto) 0.2 x10^3/uL (0.0-0.7) Basophils # (Auto) 0.0 x10^3/uL (0.0-0.2) Sodium Level 155 mmol/L (136-145) Potassium Level 2.3 mmol/L (3.5-5.1) Chloride Level 116 mmol/L (98-107) Carbon Dioxide Level 29 mmol/L (21-32) Anion Gap 10 (6-14) Blood Urea Nitrogen 29 mg/dL (8-26) Creatinine 3.0 mg/dL (0.7-1.3) Estimated GFR (Cockcroft-Gault) 29.7 BUN/Creatinine Ratio 10 (6-20) Glucose Level 134 mg/dL (70-99) Calcium Level 7.8 mg/dL (8.5-10.1) Phosphorus Level 2.2 mg/dL (2.6-4.7) Total Bilirubin 2.4 mg/dL (0.2-1.0) Aspartate Amino Transf (AST/SGOT) 2110 U/L (15-37) Alanine Aminotransferase (ALT/SGPT) 675 U/L (16-63) Alkaline Phosphatase 104 U/L (46-116) Total Protein 4.7 g/dL (6.4-8.2) Albumin 2.3 g/dL (3.4-5.0) Albumin/Globulin Ratio 1.0 (1.0-1.7) O2 Saturation 93 % (92-99) Arterial Blood pH 7.41 (7.35-7.45) Arterial Blood pCO2 at Patient Temp 45 mmHg (35-46) Arterial Blood pO2 at Patient Temp 66 mmHg (85-108) Arterial Blood HCO3 28 mmol/L (21-28) Arterial Blood Base Excess 3 mmol/L (-3-3) FiO2 40 Comments cxr reviewed ett ok l atelectasis Impression . IMPRESSION: 1. Acute respiratory failure, multifactorial, mainly related to severe metabolic acidosis and renal failure. 2. Metabolic acidosis related to renal failure and toxic ingestion of K2. 3. Severe metabolic acidosis per Nephrology. 4. Toxic encephalopathy. 5. Abnormal x-ray, compatible with left lower lobe infiltrate, possible pneumonia. 6. Acute renal failure. 7. Lactic acidosis. 8. Atrial fibrillation/svt v tach. 9. Protein malnutrition, present upon admission. 10. Patient pronounced brain by neurology Plan . updated 04/23 Patient pronounced brain by neurology Silva organ transplant notified I will sign off, call if needed. JA SPEARS MD Apr 23, 2021 08:35
--- NOTE | 2021-04-23 08:42 | PDOC ---
SURGICAL PROGRESS NOTE DATE: 04/23/21 TIME: 08:41 Subjective intubated, off sedation, not awakening neurological testing Vital Signs Vital Signs Date Time Temp Pulse Resp B/P (MAP) Pulse Ox O2 Delivery O2 Flow Rate FiO2 04/23/21 07:40 98 Ventilator 04/23/21 07:00 104 16 102/67 04/23/21 04:00 98.8 98.8 I&O Intake and Output 04/23/21 07:00 Intake Total 1035 ml Output Total 9220 ml Balance -8185 ml Intake Oral 0 ml IV Total 1035 ml Output Urine Total 2220 ml Gastric Drainage Total 7000 ml PATIENT HAS A [place]: Yes General: Other (nonresponsive ) Abdomen: Soft, Other (less distended ) Labs Laboratory Tests Test 04/21/21 15:50 04/22/21 06:40 04/22/21 06:45 04/22/21 07:45 Sodium Level 153 mmol/L (136-145) 159 mmol/L (136-145) Potassium Level 4.0 mmol/L (3.5-5.1) 3.6 mmol/L (3.5-5.1) Chloride Level 114 mmol/L (98-107) 120 mmol/L (98-107) Carbon Dioxide Level 31 mmol/L (21-32) 28 mmol/L (21-32) Anion Gap 8 (6-14) 11 (6-14) Blood Urea Nitrogen 12 mg/dL (8-26) 20 mg/dL (8-26) Creatinine 1.8 mg/dL (0.7-1.3) 2.5 mg/dL (0.7-1.3) Estimated GFR (Cockcroft-Gault) 53.5 36.6 Glucose Level 120 mg/dL (70-99) 87 mg/dL (70-99) Calcium Level 8.5 mg/dL (8.5-10.1) 8.4 mg/dL (8.5-10.1) Phosphorus Level 1.7 mg/dL (2.6-4.7) 1.5 mg/dL (2.6-4.7) Magnesium Level 3.2 mg/dL (1.8-2.4) White Blood Count 6.6 x10^3/uL (4.0-11.0) Red Blood Count 4.54 x10^6/uL (4.30-5.70) Hemoglobin 13.7 g/dL (13.0-17.5) Hematocrit 40.9 % (39.0-53.0) Mean Corpuscular Volume 90 fL (79-100) Mean Corpuscular Hemoglobin 30 pg (25-35) Mean Corpuscular Hemoglobin Concent 33 g/dL (31-37) Red Cell Distribution Width 14.4 % (11.5-14.5) Platelet Count 87 x10^3/uL (140-400) Prothrombin Time 25.0 SEC (11.7-14.0) Prothromb Time International Ratio 2.3 (0.8-1.1) BUN/Creatinine Ratio 8 (6-20) Total Bilirubin 2.0 mg/dL (0.2-1.0) Aspartate Amino Transf (AST/SGOT) 176 U/L (15-37) Alanine Aminotransferase (ALT/SGPT) 101 U/L (16-63) Alkaline Phosphatase 61 U/L (46-116) Total Protein 5.0 g/dL (6.4-8.2) Albumin 2.6 g/dL (3.4-5.0) Albumin/Globulin Ratio 1.1 (1.0-1.7) O2 Saturation 99 % (92-99) Arterial Blood pH 7.43 (7.35-7.45) Arterial Blood pCO2 at Patient Temp 36 mmHg (35-46) Arterial Blood pO2 at Patient Temp 150 mmHg (85-108) Arterial Blood HCO3 23 mmol/L (21-28) Arterial Blood Base Excess -1 mmol/L (-3-3) FiO2 40/vent Test 04/22/21 23:23 04/23/21 06:05 04/23/21 07:40 Glucose (Fingerstick) 109 mg/dL (70-99) White Blood Count 5.8 x10^3/uL (4.0-11.0) Red Blood Count 4.57 x10^6/uL (4.30-5.70) Hemoglobin 13.6 g/dL (13.0-17.5) Hematocrit 41.4 % (39.0-53.0) Mean Corpuscular Volume 91 fL (79-100) Mean Corpuscular Hemoglobin 30 pg (25-35) Mean Corpuscular Hemoglobin Concent 33 g/dL (31-37) Red Cell Distribution Width 14.8 % (11.5-14.5) Platelet Count 48 x10^3/uL (140-400) Neutrophils (%) (Auto) 79 % (31-73) Lymphocytes (%) (Auto) 15 % (24-48) Monocytes (%) (Auto) 3 % (0-9) Eosinophils (%) (Auto) 3 % (0-3) Basophils (%) (Auto) 0 % (0-3) Neutrophils # (Auto) 4.6 x10^3/uL (1.8-7.7) Lymphocytes # (Auto) 0.9 x10^3/uL (1.0-4.8) Monocytes # (Auto) 0.2 x10^3/uL (0.0-1.1) Eosinophils # (Auto) 0.2 x10^3/uL (0.0-0.7) Basophils # (Auto) 0.0 x10^3/uL (0.0-0.2) Sodium Level 155 mmol/L (136-145) Potassium Level 2.3 mmol/L (3.5-5.1) Chloride Level 116 mmol/L (98-107) Carbon Dioxide Level 29 mmol/L (21-32) Anion Gap 10 (6-14) Blood Urea Nitrogen 29 mg/dL (8-26) Creatinine 3.0 mg/dL (0.7-1.3) Estimated GFR (Cockcroft-Gault) 29.7 BUN/Creatinine Ratio 10 (6-20) Glucose Level 134 mg/dL (70-99) Calcium Level 7.8 mg/dL (8.5-10.1) Phosphorus Level 2.2 mg/dL (2.6-4.7) Total Bilirubin 2.4 mg/dL (0.2-1.0) Aspartate Amino Transf (AST/SGOT) 2110 U/L (15-37) Alanine Aminotransferase (ALT/SGPT) 675 U/L (16-63) Alkaline Phosphatase 104 U/L (46-116) Total Protein 4.7 g/dL (6.4-8.2) Albumin 2.3 g/dL (3.4-5.0) Albumin/Globulin Ratio 1.0 (1.0-1.7) O2 Saturation 93 % (92-99) Arterial Blood pH 7.41 (7.35-7.45) Arterial Blood pCO2 at Patient Temp 45 mmHg (35-46) Arterial Blood pO2 at Patient Temp 66 mmHg (85-108) Arterial Blood HCO3 28 mmol/L (21-28) Arterial Blood Base Excess 3 mmol/L (-3-3) FiO2 40 Laboratory Tests Test 04/22/21 23:23 04/23/21 06:05 04/23/21 07:40 Glucose (Fingerstick) 109 mg/dL (70-99) White Blood Count 5.8 x10^3/uL (4.0-11.0) Red Blood Count 4.57 x10^6/uL (4.30-5.70) Hemoglobin 13.6 g/dL (13.0-17.5) Hematocrit 41.4 % (39.0-53.0) Mean Corpuscular Volume 91 fL (79-100) Mean Corpuscular Hemoglobin 30 pg (25-35) Mean Corpuscular Hemoglobin Concent 33 g/dL (31-37) Red Cell Distribution Width 14.8 % (11.5-14.5) Platelet Count 48 x10^3/uL (140-400) Neutrophils (%) (Auto) 79 % (31-73) Lymphocytes (%) (Auto) 15 % (24-48) Monocytes (%) (Auto) 3 % (0-9) Eosinophils (%) (Auto) 3 % (0-3) Basophils (%) (Auto) 0 % (0-3) Neutrophils # (Auto) 4.6 x10^3/uL (1.8-7.7) Lymphocytes # (Auto) 0.9 x10^3/uL (1.0-4.8) Monocytes # (Auto) 0.2 x10^3/uL (0.0-1.1) Eosinophils # (Auto) 0.2 x10^3/uL (0.0-0.7) Basophils # (Auto) 0.0 x10^3/uL (0.0-0.2) Sodium Level 155 mmol/L (136-145) Potassium Level 2.3 mmol/L (3.5-5.1) Chloride Level 116 mmol/L (98-107) Carbon Dioxide Level 29 mmol/L (21-32) Anion Gap 10 (6-14) Blood Urea Nitrogen 29 mg/dL (8-26) Creatinine 3.0 mg/dL (0.7-1.3) Estimated GFR (Cockcroft-Gault) 29.7 BUN/Creatinine Ratio 10 (6-20) Glucose Level 134 mg/dL (70-99) Calcium Level 7.8 mg/dL (8.5-10.1) Phosphorus Level 2.2 mg/dL (2.6-4.7) Total Bilirubin 2.4 mg/dL (0.2-1.0) Aspartate Amino Transf (AST/SGOT) 2110 U/L (15-37) Alanine Aminotransferase (ALT/SGPT) 675 U/L (16-63) Alkaline Phosphatase 104 U/L (46-116) Total Protein 4.7 g/dL (6.4-8.2) Albumin 2.3 g/dL (3.4-5.0) Albumin/Globulin Ratio 1.0 (1.0-1.7) O2 Saturation 93 % (92-99) Arterial Blood pH 7.41 (7.35-7.45) Arterial Blood pCO2 at Patient Temp 45 mmHg (35-46) Arterial Blood pO2 at Patient Temp 66 mmHg (85-108) Arterial Blood HCO3 28 mmol/L (21-28) Arterial Blood Base Excess 3 mmol/L (-3-3) FiO2 40 Problem List ileus ongoing critical care --no responsiveness off sedation Justicifation of Admission Dx: Justifications for Admission: Justification of Admission Dx: N/A MIGEL PERSAUD APRN Apr 23, 2021 08:42
[2021-04-23 09:32] LABS: BASE EXCESS COOX -1 mmol/L (-3-3); HCO3 COOX 31 mmol/L (21-28); METHEMOGLOBIN 0.7 % (0.0-1.9); OXYHEMOGLOBIN 98.4 %; PO2 COOX 480 mmHg (85-108); SAT O2 COOX 99 % (92-99)
--- NOTE | 2021-04-23 09:57 | PDOC ---
PROGRESS NOTES Date of Service DATE: 04/23/21 TIME: 09:53 Assessment Brain Toxic encephalopathy, consistent with K2 ingestion. He had negative CT of the head at [facility] Atrial fibrillation, compensated, metabolic acidosis, hypothermia, acute renal failure, lactic acidosis, and elevated INR Plan No need for ancillary testing such as EEG. Terminal extubation after [place] transplant network assesses Subjective He took a turn for the worse yesterday, sedation and paralytics were lifted, he has been unresponsive Objective Vital Signs Date Time Temp Pulse Resp B/P (MAP) Pulse Ox O2 Delivery O2 Flow Rate FiO2 04/23/21 09:30 Ventilator 04/23/21 09:20 8.0 04/23/21 09:00 97 16 98/66 100 04/23/21 08:00 99.0 99.0 Intake and Output 04/23/21 07:00 Intake Total 1035 ml Output Total 9220 ml Balance -8185 ml Intake Oral 0 ml IV Total 1035 ml Output Urine Total 2220 ml Gastric Drainage Total 7000 ml PHYSICAL EXAM Neurology Brain note Prerequisites (all must be checked) Coma, irreversible and cause known. Neuroimaging explains coma. 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 No evidence of residual paralytics (electrical stimulation if paralytics used). Absence of severe acid-base, electrolyte, endocrine abnormality. Normothermia or mild hypothermia (core temperature >36C). Systolic blood pressure =100 mm Hg. No spontaneous respirations. Examination (all must be checked) Pupils nonreactive to bright light. Corneal reflex absent. Oculocephalic reflex absent (tested only if C-spineintegrity ensured). Oculovestibular reflex not tested. No facial movement to noxious stimuli at supraorbital nerve, temporomandibular joint. Gag reflex absent. Cough reflex absent to tracheal suctioning. Absence of motor response to noxious stimuli in all four limbs (spinally mediated reflexes are permissible). Apnea testing (all must be checked) Patient is hemodynamically stable. Ventilator adjusted to provide normocarbia (PaCO2 3545 mm Hg). Patient preoxygenated with 100% FiO2 for >10 minutes to PaO2>200 mm Hg. Patient well-oxygenated with a positive end-expiratory pressure (PEEP) of 5 cm of water. Provide oxygen via a suction catheter to the level of the jeff at 6 L/min or attach T-piece with continuous positive airway pressure (CPAP) at 10 cm H2O. Disconnect ventilator. Spontaneous respirations absent. Arterial blood gas drawn at 810 minutes, patient reconnected to ventilator. PCO2 =60 mm Hg, or 20 mm Hg rise from normal baseline value. Time of (DD/MM/YY) 04/23/21, 09:56 Review of Relevant I have reviewed the following items abdelrahman (where applicable) has been applied. Labs Laboratory Tests Test 04/21/21 15:50 04/22/21 06:40 04/22/21 06:45 04/22/21 07:45 Sodium Level 153 mmol/L (136-145) 159 mmol/L (136-145) Potassium Level 4.0 mmol/L (3.5-5.1) 3.6 mmol/L (3.5-5.1) Chloride Level 114 mmol/L (98-107) 120 mmol/L (98-107) Carbon Dioxide Level 31 mmol/L (21-32) 28 mmol/L (21-32) Anion Gap 8 (6-14) 11 (6-14) Blood Urea Nitrogen 12 mg/dL (8-26) 20 mg/dL (8-26) Creatinine 1.8 mg/dL (0.7-1.3) 2.5 mg/dL (0.7-1.3) Estimated GFR (Cockcroft-Gault) 53.5 36.6 Glucose Level 120 mg/dL (70-99) 87 mg/dL (70-99) Calcium Level 8.5 mg/dL (8.5-10.1) 8.4 mg/dL (8.5-10.1) Phosphorus Level 1.7 mg/dL (2.6-4.7) 1.5 mg/dL (2.6-4.7) Magnesium Level 3.2 mg/dL (1.8-2.4) White Blood Count 6.6 x10^3/uL (4.0-11.0) Red Blood Count 4.54 x10^6/uL (4.30-5.70) Hemoglobin 13.7 g/dL (13.0-17.5) Hematocrit 40.9 % (39.0-53.0) Mean Corpuscular Volume 90 fL (79-100) Mean Corpuscular Hemoglobin 30 pg (25-35) Mean Corpuscular Hemoglobin Concent 33 g/dL (31-37) Red Cell Distribution Width 14.4 % (11.5-14.5) Platelet Count 87 x10^3/uL (140-400) Prothrombin Time 25.0 SEC (11.7-14.0) Prothromb Time International Ratio 2.3 (0.8-1.1) BUN/Creatinine Ratio 8 (6-20) Total Bilirubin 2.0 mg/dL (0.2-1.0) Aspartate Amino Transf (AST/SGOT) 176 U/L (15-37) Alanine Aminotransferase (ALT/SGPT) 101 U/L (16-63) Alkaline Phosphatase 61 U/L (46-116) Total Protein 5.0 g/dL (6.4-8.2) Albumin 2.6 g/dL (3.4-5.0) Albumin/Globulin Ratio 1.1 (1.0-1.7) O2 Saturation 99 % (92-99) Arterial Blood pH 7.43 (7.35-7.45) Arterial Blood pCO2 at Patient Temp 36 mmHg (35-46) Arterial Blood pO2 at Patient Temp 150 mmHg (85-108) Arterial Blood HCO3 23 mmol/L (21-28) Arterial Blood Base Excess -1 mmol/L (-3-3) FiO2 40/vent Test 04/22/21 23:23 04/23/21 06:05 04/23/21 07:40 Glucose (Fingerstick) 109 mg/dL (70-99) White Blood Count 5.8 x10^3/uL (4.0-11.0) Red Blood Count 4.57 x10^6/uL (4.30-5.70) Hemoglobin 13.6 g/dL (13.0-17.5) Hematocrit 41.4 % (39.0-53.0) Mean Corpuscular Volume 91 fL (79-100) Mean Corpuscular Hemoglobin 30 pg (25-35) Mean Corpuscular Hemoglobin Concent 33 g/dL (31-37) Red Cell Distribution Width 14.8 % (11.5-14.5) Platelet Count 48 x10^3/uL (140-400) Neutrophils (%) (Auto) 79 % (31-73) Lymphocytes (%) (Auto) 15 % (24-48) Monocytes (%) (Auto) 3 % (0-9) Eosinophils (%) (Auto) 3 % (0-3) Basophils (%) (Auto) 0 % (0-3) Neutrophils # (Auto) 4.6 x10^3/uL (1.8-7.7) Lymphocytes # (Auto) 0.9 x10^3/uL (1.0-4.8) Monocytes # (Auto) 0.2 x10^3/uL (0.0-1.1) Eosinophils # (Auto) 0.2 x10^3/uL (0.0-0.7) Basophils # (Auto) 0.0 x10^3/uL (0.0-0.2) Sodium Level 155 mmol/L (136-145) Potassium Level 2.3 mmol/L (3.5-5.1) Chloride Level 116 mmol/L (98-107) Carbon Dioxide Level 29 mmol/L (21-32) Anion Gap 10 (6-14) Blood Urea Nitrogen 29 mg/dL (8-26) Creatinine 3.0 mg/dL (0.7-1.3) Estimated GFR (Cockcroft-Gault) 29.7 BUN/Creatinine Ratio 10 (6-20) Glucose Level 134 mg/dL (70-99) Calcium Level 7.8 mg/dL (8.5-10.1) Phosphorus Level 2.2 mg/dL (2.6-4.7) Total Bilirubin 2.4 mg/dL (0.2-1.0) Aspartate Amino Transf (AST/SGOT) 2110 U/L (15-37) Alanine Aminotransferase (ALT/SGPT) 675 U/L (16-63) Alkaline Phosphatase 104 U/L (46-116) Total Protein 4.7 g/dL (6.4-8.2) Albumin 2.3 g/dL (3.4-5.0) Albumin/Globulin Ratio 1.0 (1.0-1.7) O2 Saturation 93 % (92-99) Arterial Blood pH 7.41 (7.35-7.45) Arterial Blood pCO2 at Patient Temp 45 mmHg (35-46) Arterial Blood pO2 at Patient Temp 66 mmHg (85-108) Arterial Blood HCO3 28 mmol/L (21-28) Arterial Blood Base Excess 3 mmol/L (-3-3) FiO2 40 Laboratory Tests Test 04/22/21 23:23 04/23/21 06:05 04/23/21 07:40 Glucose (Fingerstick) 109 mg/dL (70-99) White Blood Count 5.8 x10^3/uL (4.0-11.0) Red Blood Count 4.57 x10^6/uL (4.30-5.70) Hemoglobin 13.6 g/dL (13.0-17.5) Hematocrit 41.4 % (39.0-53.0) Mean Corpuscular Volume 91 fL (79-100) Mean Corpuscular Hemoglobin 30 pg (25-35) Mean Corpuscular Hemoglobin Concent 33 g/dL (31-37) Red Cell Distribution Width 14.8 % (11.5-14.5) Platelet Count 48 x10^3/uL (140-400) Neutrophils (%) (Auto) 79 % (31-73) Lymphocytes (%) (Auto) 15 % (24-48) Monocytes (%) (Auto) 3 % (0-9) Eosinophils (%) (Auto) 3 % (0-3) Basophils (%) (Auto) 0 % (0-3) Neutrophils # (Auto) 4.6 x10^3/uL (1.8-7.7) Lymphocytes # (Auto) 0.9 x10^3/uL (1.0-4.8) Monocytes # (Auto) 0.2 x10^3/uL (0.0-1.1) Eosinophils # (Auto) 0.2 x10^3/uL (0.0-0.7) Basophils # (Auto) 0.0 x10^3/uL (0.0-0.2) Sodium Level 155 mmol/L (136-145) Potassium Level 2.3 mmol/L (3.5-5.1) Chloride Level 116 mmol/L (98-107) Carbon Dioxide Level 29 mmol/L (21-32) Anion Gap 10 (6-14) Blood Urea Nitrogen 29 mg/dL (8-26) Creatinine 3.0 mg/dL (0.7-1.3) Estimated GFR (Cockcroft-Gault) 29.7 BUN/Creatinine Ratio 10 (6-20) Glucose Level 134 mg/dL (70-99) Calcium Level 7.8 mg/dL (8.5-10.1) Phosphorus Level 2.2 mg/dL (2.6-4.7) Total Bilirubin 2.4 mg/dL (0.2-1.0) Aspartate Amino Transf (AST/SGOT) 2110 U/L (15-37) Alanine Aminotransferase (ALT/SGPT) 675 U/L (16-63) Alkaline Phosphatase 104 U/L (46-116) Total Protein 4.7 g/dL (6.4-8.2) Albumin 2.3 g/dL (3.4-5.0) Albumin/Globulin Ratio 1.0 (1.0-1.7) O2 Saturation 93 % (92-99) Arterial Blood pH 7.41 (7.35-7.45) Arterial Blood pCO2 at Patient Temp 45 mmHg (35-46) Arterial Blood pO2 at Patient Temp 66 mmHg (85-108) Arterial Blood HCO3 28 mmol/L (21-28) Arterial Blood Base Excess 3 mmol/L (-3-3) FiO2 40 Medications Current Medications Sodium Bicarbonate 100 meq/Dextrose 1,100 ml @ 60 mls/hr [id number] IV ; Start 04/20/21 at 03:30; Stop 04/20/21 at 05:54; Status DC Diltiazem HCl 125 mg/Sodium Chloride 125 ml @ 5 mls/hr CONT PRN IV PER PROTOCOL; Start 04/20/21 at 03:30 Sodium Chloride 1,000 ml @ 1,000 mls/hr 1X ONCE IV Last administered on 04/20/21at 05:45; Start 04/20/21 at 05:45; Stop 04/20/21 at 06:44; Status DC Sodium Bicarbonate 150 meq/Dextrose 1,150 ml @ 125 mls/hr Q9H12M IV Last administered on 04/20/21at 22:54; Start 04/20/21 at 06:00; Stop 04/21/21 at 01:01; Status DC Sodium Bicarbonate (Sodium Bicarb Adult 8.4% Syr) 50 meq STK-MED ONCE .ROUTE ; Start 04/20/21 at 07:47; Stop 04/20/21 at 07:47; Status DC Rocuronium Parrott (Zemuron) 50 mg STK-MED ONCE .ROUTE ; Start 04/20/21 at 07:49; Stop 04/20/21 at 07:49; Status DC Sodium Bicarbonate (Sodium Bicarb Adult 8.4% Syr) 100 meq 1X ONCE IV Last administered on 04/20/21at 08:09; Start 04/20/21 at 08:00; Stop 04/20/21 at 08:01; Status DC Etomidate (Amidate) 20 mg STK-MED ONCE IV ; Start 04/20/21 at 07:49; Stop 04/20/21 at 07:50; Status DC Etomidate (Amidate) 20 mg STK-MED ONCE IV ; Start 04/20/21 at 07:54; Stop 04/20/21 at 07:54; Status DC Fentanyl Citrate 30 ml @ 2.5 mls/hr CONT PRN IV SEE PROTOCOL Last administered on 04/20/21at 10:17; Start 04/20/21 at 08:00; Stop 04/20/21 at 15:23; Status DC Midazolam HCl 100 ml @ 0 mls/hr CONT PRN IV SEE PROTOCOL Last administered on 04/22/21at 11:06; Start 04/20/21 at 08:00 Propofol 100 ml @ 2.865 mls/ hr CONT PRN IV PER PROTOCOL; Start 04/20/21 at 08:00 Glycerin/ Hypromellose/ Polyethylene (Artificial Tears) 1 drop PRN Q1HR PRN OU DRY EYE; Start 04/20/21 at 08:00 Midazolam HCl (Versed) 5 mg PRN 1X PRN IVP VENT INDUCTION; Start 04/20/21 at 08:00; Stop 04/21/21 at 07:59; Status DC Sodium Chloride 500 ml @ 500 mls/hr 1X PRN PRN IV SEE COMMENTS; Start 04/20/21 at 08:00 Atropine Sulfate (ATROPINE 0.5mg SYRINGE) 0.5 mg PRN Q5MIN PRN IV SEE COMMENTS; Start 04/20/21 at 08:00 Norepinephrine Bitartrate 8 mg/ Dextrose 258 ml @ 18.479 mls/ hr CONT PRN IV PER PROTOCOL Last administered on 04/20/21at 18:06; Start 04/20/21 at 08:00; Stop 04/20/21 at 20:35; Status DC Dextrose (Dextrose 50%-Water Syringe) 25 gm 1X ONCE IV Last administered on 04/20/21at 08:09; Start 04/20/21 at 08:15; Stop 04/20/21 at 08:16; Status DC Dextrose (Dextrose 50%-Water Syringe) 25 gm STK-MED ONCE IV ; Start 04/20/21 at 08:07; Stop 04/20/21 at 08:08; Status DC Pantoprazole Sodium 80 mg/ Sodium Chloride 100 ml @ 10 mls/hr Q10H IV Last administered on 04/23/21at 07:37; Start 04/20/21 at 09:00 Sodium Chloride 1,000 ml @ 1,000 mls/hr 1X ONCE IV Last administered on 04/20/21at 08:54; Start 04/20/21 at 09:00; Stop 04/20/21 at 09:59; Status DC Vecuronium Parrott (Norcuron Bolus) 6 mg PRN Q6HRS PRN IV VENTILATOR COMPLIANCE Last administered on 04/20/21at 15:34; Start 04/20/21 at 11:00 Sodium Bicarbonate (Sodium Bicarb Adult 8.4% Syr) 100 meq Q2H IV Last administered on 04/20/21at 13:32; Start 04/20/21 at 13:00; Stop 04/20/21 at 15:01; Status DC Lidocaine HCl (Buffered Lidocaine 1%) 3 ml STK-MED ONCE .ROUTE ; Start 04/20/21 at 13:02; Stop 04/20/21 at 13:02; Status DC Lidocaine HCl (Buffered Lidocaine 1%) 6 ml 1X ONCE INJ Last administered on 04/20/21at 13:46; Start 04/20/21 at 13:45; Stop 04/20/21 at 13:46; Status DC Potassium Chloride 20 meq/ Magnesium Sulfate 15 meq/Calcium Chloride 5 meq/ Bicarbonate Dialysis Soln w/ out KCl 5,017.3214 ml @ 1,500 mls/hr Q3H21M IV Last administered on 04/20/21at 18:15; Start 04/20/21 at 15:00; Stop 04/20/21 at 19:13; Status DC Potassium Chloride 20 meq/ Magnesium Sulfate 15 meq/Calcium Chloride 5 meq/ Bicarbonate Dialysis Soln w/ out KCl 5,017.3214 ml @ 1,500 mls/hr Q3H21M IV Last administered on 04/20/21at 18:14; Start 04/20/21 at 15:00; Stop 04/20/21 at 19:13; Status DC Sodium Bicarbonate 150 meq/Dextrose 1,150 ml @ 500 mls/hr Q2H18M IV Last administered on 04/20/21at 22:43; Start 04/20/21 at 15:00; Stop 04/21/21 at 01:01; Status DC Fentanyl Citrate 55 ml @ 0 mls/hr CONT PRN IV SEE PROTOCOL Last administered on 04/22/21at 03:45; Start 04/20/21 at 14:15 Sodium Bicarbonate (Sodium Bicarb Adult 8.4% Syr) 100 meq 1X ONCE IV Last admi nistered on 04/20/21at 15:10; Start 04/20/21 at 15:15; Stop 04/20/21 at 15:16; Status DC Amiodarone HCl 75 mg/Dextrose 101.5 ml @ 618 mls/hr 1X ONCE IV Last administered on 04/20/21at 15:44; Start 04/20/21 at 16:00; Stop 04/20/21 at 16:09; Status DC Amiodarone HCl 450 mg/Dextrose 259 ml @ 0 mls/hr CONT PRN IV SEE I/O RECORD Last administered on 04/21/21at 02:52; Start 04/20/21 at 15:30; Stop 04/21/21 at 15:30; Status DC Adenosine (Adenocard) 6 mg STK-MED ONCE IV ; Start 04/20/21 at 16:10; Stop 04/20/21 at 16:10; Status DC Adenosine (Adenocard) 6 mg STK-MED ONCE IV ; Start 04/20/21 at 16:15; Stop 04/20/21 at 16:16; Status DC Adenosine (Adenocard) 6 mg 1X ONCE IV Last administered on 04/20/21at 16:33; Start 04/20/21 at 16:30; Stop 04/20/21 at 16:31; Status DC Adenosine (Adenocard) 12 mg 1X ONCE IV Last administered on 04/20/21at 16:32; Start 04/20/21 at 16:30; Stop 04/20/21 at 16:31; Status DC Vecuronium Parrott 50 mg/ Sodium Chloride 50 ml @ 4.584 mls/ hr CONT PRN IV PER PROTOCOL Last administered on 04/22/21at 02:04; Start 04/20/21 at 16:30 Heparin Sodium/ Dextrose 250 ml @ 10 mls/hr CONT PRN IV PER PROTOCOL Last administered on 04/20/21at 19:32; Start 04/20/21 at 19:15; Stop 04/21/21 at 10:48; Status DC Heparin Sodium (Porcine) (Heparin Sodium) 2,400 unit PRN Q6HRS PRN IV FOR UFH LEVEL LESS THAN 0.2; Start 04/20/21 at 19:15; Stop 04/21/21 at 10:48; Status DC Potassium Chloride 20 meq/ Magnesium Sulfate 2.5 meq/Calcium Chloride 5 meq/ Bicarbonate Dialysis Soln w/ out KCl 5,014.1964 ml @ 1,500 mls/hr Q3H21M IV Last administered on 04/21/21at 07:03; Start 04/20/21 at 21:00; Stop 04/21/21 at 11:07; Status DC Potassium Chloride 20 meq/ Magnesium Sulfate 2.5 meq/Calcium Chloride 5 meq/ Bicarbonate Dialysis Soln w/ out KCl 5,014.1964 ml @ 1,500 mls/hr Q3H21M IV Last administered on 04/21/21at 07:03; Start 04/20/21 at 21:00; Stop 04/21/21 at 11:07; Status DC Epinephrine HCl 5 mg/Sodium Chloride 255 ml @ 29.223 mls/ hr CONT PRN IV SEE I/O RECORD; Start 04/20/21 at 20:30 Norepinephrine Bitartrate 32 mg/ Dextrose 250 ml @ 4.453 mls/ hr CONT PRN IV SEE I/O RECORD Last administered on 04/23/21at 07:38; Start 04/20/21 at 20:45 Digoxin (Lanoxin) 250 mcg 1X ONCE IV Last administered on 04/20/21at 21:54; Start 04/20/21 at 21:45; Stop 04/20/21 at 21:47; Status DC Digoxin (Lanoxin) 250 mcg 1X ONCE IV Last administered on 04/20/21at 22:35; Start 04/20/21 at 22:15; Stop 04/20/21 at 22:16; Status DC Amiodarone HCl 300 mg/Dextrose 106 ml @ 618 mls/hr 1X ONCE IV Last admi nistered on 04/20/21at 23:43; Start 04/20/21 at 23:30; Stop 04/20/21 at 23:40; Status DC Digoxin (Lanoxin) 250 mcg 1X ONCE IV ; Start 04/21/21 at 04:30; Stop 04/21/21 at 04:32; Status DC Potassium Phosphate 13.3 mmol/Sodium Chloride 104.4333 ml @ 100 mls/hr Q1H IV Last administered on 04/21/21at 04:48; Start 04/21/21 at 02:00; Stop 04/21/21 at 04:59; Status DC Potassium Chloride 20 meq/ Magnesium Sulfate 2.5 meq/Calcium Chloride 5 meq/ Bicarbonate Dialysis Soln w/ out KCl 5,014.1964 ml @ 1,500 mls/hr Q3H21M IV Last administered on 04/21/21at 01:44; Start 04/21/21 at 01:45; Stop 04/21/21 at 11:07; Status DC Sodium Chloride 1,000 ml @ 200 mls/hr Q5H ONCE IV Last administered on 04/21/21at 11:10; Start 04/21/21 at 10:45; Stop 04/21/21 at 15:44; Status DC Amiodarone HCl 450 mg/Dextrose 259 ml @ 17 mls/hr CONT PRN IV SEE I/O RECORD Last administered on 04/21/21at 20:08; Start 04/21/21 at 19:30; Stop 04/22/21 at 19:29; Status DC Dextrose 1,000 ml @ 150 mls/hr CONT PRN IV SEE I/O RECORD Last administered on 04/23/21at 06:22; Start 04/22/21 at 08:30 Potassium Phosphate 15 mmol/ Sodium Chloride 105 ml @ 52.5 mls/hr PRN Q2HRS PRN IV if phos < 2.6; Start 04/22/21 at 09:00; Stop 04/22/21 at 10:01; Status DC Potassium Phosphate 15 mmol/ Sodium Chloride 105 ml @ 52.5 mls/hr 1X ONCE IV Last administered on 04/22/21at 10:16; Start 04/22/21 at 11:00; Stop 04/22/21 at 12:59; Status DC Amiodarone HCl 450 mg/Dextrose 259 ml @ 17 mls/hr CONT PRN IV SEE I/O RECORD Last administered on 04/23/21at 04:04; Start 04/22/21 at 12:00; Stop 04/23/21 at 11:59 Etomidate (Amidate) 20 mg STK-MED ONCE IV ; Start 04/20/21 at 08:00; Stop 04/23/21 at 09:02; Status DC Rocuronium Parrott (Zemuron) 50 mg STK-MED ONCE .ROUTE ; Start 04/20/21 at 08:00; Stop 04/23/21 at 09:02; Status DC Vitals/I & O Vital Sign - Last 24 Hours 04/22/21 04/22/21 04/22/21 04/22/21 10:02 10:16 11:08 11:15 Temp 98.2 98.2 Pulse 106 107 Resp 16 16 B/P (MAP) 106/75 103/75 78/56 Pulse Ox 100 100 100 O2 Delivery Ventilator Ventilator Ventilator 04/22/21 04/22/21 04/22/21 04/22/21 11:16 11:20 11:38 11:55 B/P (MAP) 75/59 140/94 Pulse Ox 100 O2 Delivery Ventilator Mechanical Ventilator 04/22/21 04/22/21 04/22/21 04/22/21 11:56 13:05 13:06 14:04 Temp 98.2 98.2 98.2 98.2 98.2 98.2 Pulse 111 104 106 Resp 16 16 16 B/P (MAP) 144/92 111/81 105/75 Pulse Ox 99 99 99 99 O2 Delivery Ventilator Ventilator Ventilator Ventilator 04/22/21 04/22/21 04/22/21 04/22/21 15:47 16:13 16:14 17:11 Temp 98.6 98.6 Pulse 106 107 Resp 16 16 B/P (MAP) 108/81 120/83 Pulse Ox 99 99 99 O2 Delivery Ventilator Ventilator Mechanical Ventilator Ventilator 04/22/21 04/22/21 04/22/21 04/22/21 17:52 18:23 19:00 20:00 Temp 99.0 99.0 Pulse 107 107 106 Resp 16 14 16 B/P (MAP) 113/83 117/82 113/81 Pulse Ox 99 99 99 99 O2 Delivery Ventilator Ventilator Ventilator Ventilator 04/22/21 04/22/21 04/22/21 04/22/21 20:00 20:10 21:00 22:00 Pulse 105 104 Resp 16 16 B/P (MAP) 111/81 109/79 Pulse Ox 99 99 99 O2 Delivery Mechanical Ventilator Ventilator Ventilator Ventilator 04/22/21 04/22/21 04/23/21 04/23/21 23:00 23:40 00:00 00:00 Temp 98.8 98.8 Pulse 104 102 Resp 16 16 B/P (MAP) 122/83 107/81 Pulse Ox 99 99 98 O2 Delivery Ventilator Ventilator Ventilator Mechanical Ventilator 04/23/21 04/23/21 04/23/21 04/23/21 01:00 02:00 03:00 04:00 Pulse 103 104 102 Resp 16 16 16 B/P (MAP) 112/74 113/73 102/69 Pulse Ox 98 98 98 O2 Delivery Ventilator Ventilator Ventilator Mechanical Ventilator 04/23/21 04/23/21 04/23/21 04/23/21 04:00 04:02 05:00 05:09 Temp 98.8 98.8 Pulse 103 102 Resp 16 16 B/P (MAP) 107/75 104/64 Pulse Ox 98 99 98 99 O2 Delivery Ventilator Ventilator Ventilator Ventilator 04/23/21 04/23/21 04/23/21 04/23/21 06:00 07:00 07:40 08:00 Pulse 103 104 Resp 16 16 B/P (MAP) 95/69 102/67 Pulse Ox 98 97 98 O2 Delivery Ventilator Ventilator Ventilator Mechanical Ventilator 04/23/21 04/23/21 04/23/21 04/23/21 08:00 09:00 09:20 09:30 Temp 99.0 99.0 Pulse 104 97 Resp 16 16 B/P (MAP) 98/62 98/66 Pulse Ox 98 100 O2 Delivery Ventilator Ventilator cannula down ET tube Ventilator O2 Flow Rate 8.0 Intake and Output 04/22/21 04/22/21 04/23/21 15:00 23:00 07:00 Intake Total 0 ml 1035 ml 0 ml Output Total 5575 ml 3275 ml 370 ml Balance -5575 ml -2240 ml -370 ml Justicifation of Admission Dx: Justifications for Admission: Justification of Admission Dx: N/A ELISHA BLANOC MD Apr 23, 2021 09:57
[2021-04-23] MEDS: POTASSIUM CHLORIDE 20MEQ 100 ML IV SCH ×4 (10:23→14:12)
--- NOTE | 2021-04-23 11:52 | NUR ---
BRAIN - PATIENT REMAINED WITHOUT ANY S/S OF NEUROLOGICAL FUNCTION. DR. BLANCO AT BEDSIDE TO EVALUATE, APNEA TEST ORDERED WITH POSITIVE RESULTS FOR BRAIN . DR COTTO PRONOUNCED BRAIN AT 0953, DOCUMENTED IN PROGRESS NOTE 04/23/21. [facility] NOTIFIED AND SENDING SOMEONE OUT TO EVALUATE. [place] OF [employer] NOTIFIED OF BRAIN FINDINGS, PATIENT WAS RELEASED FROM [facility], OKAY FOR FAMILY TO MAKE DECISIONS. MOTHER WAS NOTIFIED PER THE DEPT OF JUSTICE AND IS AWARE OF SITUATION, PER MICTHELL SHE IS ON HER WAY TO SEE PATIENT TODAY.
--- NOTE | 2021-04-23 12:49 | PDOC ---
Renal-Progress Notes Subjective Notes Notes NO CHANGES History of Present Illness Hx of present illness NOT ANY BETTER, NEURO EVAL Vitals Vitals Vital Signs Date Time Temp Pulse Resp B/P (MAP) Pulse Ox O2 Delivery O2 Flow Rate FiO2 04/23/21 12:00 Mechanical Ventilator 04/23/21 12:00 98.1 85 16 115/81 100 98.1 04/23/21 09:20 8.0 Weight Weight [ ] I.O. Intake and Output Intake and Output 04/23/21 07:00 Intake Total 1035 ml Output Total 9220 ml Balance -8185 ml Intake Oral 0 ml IV Total 1035 ml Output Urine Total 2220 ml Gastric Drainage Total 7000 ml Labs Labs Laboratory Tests Test 04/22/21 23:23 04/23/21 06:05 04/23/21 07:40 Glucose (Fingerstick) 109 mg/dL (70-99) White Blood Count 5.8 x10^3/uL (4.0-11.0) Red Blood Count 4.57 x10^6/uL (4.30-5.70) Hemoglobin 13.6 g/dL (13.0-17.5) Hematocrit 41.4 % (39.0-53.0) Mean Corpuscular Volume 91 fL (79-100) Mean Corpuscular Hemoglobin 30 pg (25-35) Mean Corpuscular Hemoglobin Concent 33 g/dL (31-37) Red Cell Distribution Width 14.8 % (11.5-14.5) Platelet Count 48 x10^3/uL (140-400) Neutrophils (%) (Auto) 79 % (31-73) Lymphocytes (%) (Auto) 15 % (24-48) Monocytes (%) (Auto) 3 % (0-9) Eosinophils (%) (Auto) 3 % (0-3) Basophils (%) (Auto) 0 % (0-3) Neutrophils # (Auto) 4.6 x10^3/uL (1.8-7.7) Lymphocytes # (Auto) 0.9 x10^3/uL (1.0-4.8) Monocytes # (Auto) 0.2 x10^3/uL (0.0-1.1) Eosinophils # (Auto) 0.2 x10^3/uL (0.0-0.7) Basophils # (Auto) 0.0 x10^3/uL (0.0-0.2) Sodium Level 155 mmol/L (136-145) Potassium Level 2.3 mmol/L (3.5-5.1) Chloride Level 116 mmol/L (98-107) Carbon Dioxide Level 29 mmol/L (21-32) Anion Gap 10 (6-14) Blood Urea Nitrogen 29 mg/dL (8-26) Creatinine 3.0 mg/dL (0.7-1.3) Estimated GFR (Cockcroft-Gault) 29.7 BUN/Creatinine Ratio 10 (6-20) Glucose Level 134 mg/dL (70-99) Calcium Level 7.8 mg/dL (8.5-10.1) Phosphorus Level 2.2 mg/dL (2.6-4.7) Total Bilirubin 2.4 mg/dL (0.2-1.0) Aspartate Amino Transf (AST/SGOT) 2110 U/L (15-37) Alanine Aminotransferase (ALT/SGPT) 675 U/L (16-63) Alkaline Phosphatase 104 U/L (46-116) Total Protein 4.7 g/dL (6.4-8.2) Albumin 2.3 g/dL (3.4-5.0) Albumin/Globulin Ratio 1.0 (1.0-1.7) O2 Saturation 93 % (92-99) Arterial Blood pH 7.41 (7.35-7.45) Arterial Blood pCO2 at Patient Temp 45 mmHg (35-46) Arterial Blood pO2 at Patient Temp 66 mmHg (85-108) Arterial Blood HCO3 28 mmol/L (21-28) Arterial Blood Base Excess 3 mmol/L (-3-3) FiO2 40 Review of Systems Constitutional: yes: unresponsive Physical Exam General Appearance: no apparent distress Skin: warm Respiratory: bilateral CTA Heart: S1S2 Abdomen: soft Genitourinary: bladder flat Extremities: pulses present Neurology: other (UNRESPONSIVE) Musculoskeletal: Other Assessment Assessment IMP [id number] OVER THE WEEKEND-GOOD UO BUT NO CLEARANCE MET ACIDOSIS ACUTE RESP FAILURE ENCEPHALOPATHY BRAIN PLAN WILL NO LONGER BE DOING DIALYSIS PT BEING EVALUATED BY [employer] FOR [employer]GAN HARVESTING WILL SIGN OFF RAJ JUNIOR MD Apr 23, 2021 12:49
--- NOTE | 2021-04-23 13:38 | PDOC ---
CARDIO Progress Notes Vitals Vitals Vital Signs Date Time Temp Pulse Resp B/P (MAP) Pulse Ox O2 Delivery O2 Flow Rate FiO2 04/23/21 13:00 83 16 137/93 100 Ventilator 04/23/21 12:00 98.1 98.1 04/23/21 09:20 8.0 Weight Weight [ ] Input and Output Intake and Output Intake and Output 04/23/21 07:00 Intake Total 1035 ml Output Total 9220 ml Balance -8185 ml Intake Oral 0 ml IV Total 1035 ml Output Urine Total 2220 ml Gastric Drainage Total 7000 ml Laboratory Labs Laboratory Tests Test 04/22/21 23:23 04/23/21 06:05 04/23/21 07:40 Glucose (Fingerstick) 109 mg/dL (70-99) White Blood Count 5.8 x10^3/uL (4.0-11.0) Red Blood Count 4.57 x10^6/uL (4.30-5.70) Hemoglobin 13.6 g/dL (13.0-17.5) Hematocrit 41.4 % (39.0-53.0) Mean Corpuscular Volume 91 fL (79-100) Mean Corpuscular Hemoglobin 30 pg (25-35) Mean Corpuscular Hemoglobin Concent 33 g/dL (31-37) Red Cell Distribution Width 14.8 % (11.5-14.5) Platelet Count 48 x10^3/uL (140-400) Neutrophils (%) (Auto) 79 % (31-73) Lymphocytes (%) (Auto) 15 % (24-48) Monocytes (%) (Auto) 3 % (0-9) Eosinophils (%) (Auto) 3 % (0-3) Basophils (%) (Auto) 0 % (0-3) Neutrophils # (Auto) 4.6 x10^3/uL (1.8-7.7) Lymphocytes # (Auto) 0.9 x10^3/uL (1.0-4.8) Monocytes # (Auto) 0.2 x10^3/uL (0.0-1.1) Eosinophils # (Auto) 0.2 x10^3/uL (0.0-0.7) Basophils # (Auto) 0.0 x10^3/uL (0.0-0.2) Sodium Level 155 mmol/L (136-145) Potassium Level 2.3 mmol/L (3.5-5.1) Chloride Level 116 mmol/L (98-107) Carbon Dioxide Level 29 mmol/L (21-32) Anion Gap 10 (6-14) Blood Urea Nitrogen 29 mg/dL (8-26) Creatinine 3.0 mg/dL (0.7-1.3) Estimated GFR (Cockcroft-Gault) 29.7 BUN/Creatinine Ratio 10 (6-20) Glucose Level 134 mg/dL (70-99) Calcium Level 7.8 mg/dL (8.5-10.1) Phosphorus Level 2.2 mg/dL (2.6-4.7) Total Bilirubin 2.4 mg/dL (0.2-1.0) Aspartate Amino Transf (AST/SGOT) 2110 U/L (15-37) Alanine Aminotransferase (ALT/SGPT) 675 U/L (16-63) Alkaline Phosphatase 104 U/L (46-116) Total Protein 4.7 g/dL (6.4-8.2) Albumin 2.3 g/dL (3.4-5.0) Albumin/Globulin Ratio 1.0 (1.0-1.7) O2 Saturation 93 % (92-99) Arterial Blood pH 7.41 (7.35-7.45) Arterial Blood pCO2 at Patient Temp 45 mmHg (35-46) Arterial Blood pO2 at Patient Temp 66 mmHg (85-108) Arterial Blood HCO3 28 mmol/L (21-28) Arterial Blood Base Excess 3 mmol/L (-3-3) FiO2 40 Review of Systems Constitutional: yes: unresponsive Physical Exam Neurology: other (UNRESPONSIVE) Justicifation of Admission Dx: Justifications for Admission: Justification of Admission Dx: N/A MINNIE NOVAK APRN Apr 23, 2021 13:38
[2021-04-23 13:47] LABS: CALCIUM 7.6 mg/dL (8.5-10.1); CREATININE 3.4 mg/dL (0.7-1.3); GFR 25.7
[2021-04-23 18:45] LABS: PCO2 COOX 95 mmHg (35-46)
--- NOTE | 2021-05-04 13:13 | PATHOLOGY ---
[facility] Accession Number: [id number] . 01 Material submitted: . liver - LIVER BIOPSY- FS . Clinical history: . ORGAN DONATION LIVER BIOPSY . 02 Frozen section diagnosis: . FROZEN SECTION DIAGNOSIS: Liver biopsy: - 5 to 10% steatosis, mild chronic inflammation, no evidence of necrosis, no evidence of cirrhosis. . These findings were discussed with the liver transplant team and a written report was placed in the patient's chart. ([facility]; 04/27/2021) . FROZEN SECTION GROSS DESCRIPTION: The specimen is received fresh labeled "liver biopsy", consists of a og piece of liver measuring 0.5 x 0.3 x 0.2 cm. It is frozen and submitted in cassette labeled FSA1. ([facility]; 04/27/2021) . Frozen section performed at [facility], [address] [place] [address], [place] [id number] [place] [address]/QT . 03 Diagnosis: Liver, subcapsular wedge biopsy: - Acute hepatic ischemic necrosis (ischemic hepatitis). - Steatosis, mild (less than 30%). - Negative for significant fibrosis. (MLK/db; 05/03/2021) LBQ 05/03/2021 1600 Local . 03 Electronically signed: . Malini Larsen MD, Pathologist NPI- [id number] . 01 Gross description: . SEE FROZEN SECTION FOR GROSS DESCRIPTION /QTP 04/27/2021 1442 Local . 03 Microscopic: . Histochemical stain results (properly controlled) . Block A1 Trichrome - Negative for advanced bridging fibrosis or cirrhosis. Focal perisinusoidal fibrosis. . Reticulin - A well intact hepatic reticulin framework pattern. Variability in hepatic plates (some appropriate thickness, some regenerative and thickened). . 03 Pathologist provided ICD-10: K72.00, K76.0 . 03 CPT . 344130, 677588, 658980, [id number] Specimen Comment: A courtesy copy of this report has been sent to [phone], [phone] Specimen Comment: [id number] Specimen Comment: Report sent to / DR EDWARDS Specimen Comment: A duplicate report has been generated due to demographic updates. Performed at: 01 [facility] [address] [id number] MD Henry Kennedy MD Phone: [phone] Performed at: 02 [facility] [address] [place] [id number] MD Doni Cantu MD Phone: [phone] Performed at: 03 [facility] [address] [id number] MD Gabriel Spann MD Phone: [phone]
== END 2021-04-23 09:53 | DRG 871 ==
LOC: EEVIPCON 01:15 → EDSEX 01:15 → 1 WEST ICU 01:15 → UNDODISIN 04-23 09:53
PROVIDERS: ADMIT Internal Medicine; ATTEND Internal Medicine
PROC: 02HV33Z Insertion of Infusion Device into Superior Vena Cava, Percutaneous Approach (ICD-10-PCS; principal; 2021-04-20)
PROC: 02HV33Z Insertion of Infusion Device into Superior Vena Cava, Percutaneous Approach (ICD-10-PCS; 2021-04-20)
PROC: B548ZZA Ultrasonography of Superior Vena Cava, Guidance (ICD-10-PCS; 2021-04-20)
PROC: B548ZZA Ultrasonography of Superior Vena Cava, Guidance (ICD-10-PCS; 2021-04-20)
PROC: 5A1945Z Respiratory Ventilation, 24-96 Consecutive Hours (ICD-10-PCS; 2021-04-20)
PROC: 0BH17EZ Insertion of Endotracheal Airway into Trachea, Via Natural or Artificial Opening (ICD-10-PCS; 2021-04-20)
DX: A41.9 Sepsis, unspecified organism (principal); G92.9 Unspecified toxic encephalopathy; J96.01 Acute respiratory failure with hypoxia; N17.0 Acute kidney failure with tubular necrosis; D68.9 Coagulation defect, unspecified; E46 Unspecified protein-calorie malnutrition; E87.0 Hyperosmolality and hypernatremia; E87.2 Acidosis; I47.1 Supraventricular tachycardia; K56.7 Ileus, unspecified; D69.6 Thrombocytopenia, unspecified; E87.5 Hyperkalemia; E87.6 Hypokalemia; I48.91 Unspecified atrial fibrillation; J45.909 Unspecified asthma, uncomplicated; Z68.33 Body mass index [BMI] 33.0-33.9, adult
CPT/HCPCS: 36415; 36556; 36600; 71045; 74018; 76937; 80048; 80053; 81001; 82010; 82310; 82805; 82962; 83605; 83735; 84100; 85007; 85025; 85027; 85049; 85379; 85384; 85520; 85610; 85730; 93306; 94003; 94760; C1892; C9113; G0480; J0153; J0282; J1160; J1644; J2250; J3010; J3475; J3480; J3490; J7030; J7060; G0378

== ENCOUNTER 2021-04-23 14:45 | Inpatient (IN) | payer OTHER ==
[~2021-04-23] VITALS: Ht 170.2 cm; Wt 98.0 kg
[2021-04-23 14:00] VITALS: BP 124/84
[2021-04-23] MEDS ORDERED: VECURONIUM BOLUS 10 MG VIAL. IV PRN (15:30)
[2021-04-23] MEDS: IV DEXTROSE 5% 1,000 ML IV SCH ×2 (15:30→16:35)
[2021-04-23 16:23] LABS: BASO % 0 % (0-3); EOS # 0.5 x10^3/uL (0.0-0.7); EOS % 6 % (0-3); HEMATOCRIT 40.9 % (39.0-53.0); HEMOGLOBIN 13.7 g/dL (13.0-17.5); LYMPH # 1.1 x10^3/uL (1.0-4.8); LYMPH % 13 % (24-48); MEAN CORPUSCULAR HEMOGLOBIN 30 pg (25-35); MEAN CORPUSCULAR HGB CONC 33 g/dL (31-37); MEAN CORPUSCULAR VOLUME 90 fL (79-100); MONO # 0.4 x10^3/uL (0.0-1.1); MONO % 4 % (0-9); NEUT # 6.1 x10^3/uL (1.8-7.7); NEUT % 76 % (31-73); PLATELET COUNT 43 x10^3/uL (140-400); RED BLOOD COUNT 4.54 x10^6/uL (4.30-5.70); RED CELL DISTRIBUTION WIDTH 14.8 % (11.5-14.5)
[2021-04-23 16:34] LABS: BILIRUBIN,URINE NEGATIVE (NEG); CLARITY,URINE CLEAR; COLOR,URINE AMBER; NITRITE,URINE NEGATIVE (NEG); PH,URINE 5.5 (<5.0-8.0); PROTEIN,URINE 30 mg/dL (NEG-TRACE); UROBILINOGEN,URINE 0.2 mg/dL (0.2 mg/dL)
[2021-04-23 16:35] LABS: PROTHROMBIN TIME PATIENT 20.4 SEC (11.7-14.0)
[2021-04-23 17:03] LABS: AMORPHOUS SEDIMENT,UR PRESENT /HPF; BACTERIA,URINE MOD /HPF (0-FEW)
[2021-04-23 17:04] LABS: RBC,URINE 0 /HPF (0-2); WBC,URINE 20-40 /HPF (0-4)
[2021-04-23 18:09] LABS: ALBUMIN 2.1 g/dL (3.4-5.0); DIRECT BILIRUBIN 1.5 mg/dL (0.0-0.2); MAGNESIUM 2.4 mg/dL (1.8-2.4); TOTAL BILIRUBIN 2.4 mg/dL (0.2-1.0); TOTAL PROTEIN 4.6 g/dL (6.4-8.2)
[2021-04-23] MEDS ORDERED: AMIODARONE 450 MG in IV DEXTROSE 5% 250 ML IV PRN (18:30)
[2021-04-23] MEDS ORDERED: IV RINGERS,LACTATED 500ML 500 ML IV ONE (20:45)
[2021-04-23] MEDS ORDERED: ALBUMIN HUMAN 25% 100 ML IV ONE (21:45)
[2021-04-23] MEDS ORDERED: NOREPINEPHRINE VIAL 32 MG in IV D5W 250ML IV PRN (22:00)
[2021-04-23] MEDS ORDERED: IV NORMAL SALINE 500ML BAG 500 ML IV ONE (22:15)
[2021-04-24 00:25] LABS: BASO % 0 % (0-3); EOS % 0 % (0-3); HEMATOCRIT 36.3 % (39.0-53.0); LYMPH # 0.2 x10^3/uL (1.0-4.8); LYMPH % 3 % (24-48); MEAN CORPUSCULAR HEMOGLOBIN 30 pg (25-35); MEAN CORPUSCULAR HGB CONC 33 g/dL (31-37); MEAN CORPUSCULAR VOLUME 90 fL (79-100); MONO # 0.3 x10^3/uL (0.0-1.1); MONO % 4 % (0-9); NEUT # 6.8 x10^3/uL (1.8-7.7); NEUT % 93 % (31-73); PLATELET COUNT 46 x10^3/uL (140-400); RED BLOOD COUNT 4.02 x10^6/uL (4.30-5.70); RED CELL DISTRIBUTION WIDTH 14.3 % (11.5-14.5); WHITE BLOOD COUNT 7.3 x10^3/uL (4.0-11.0)
[2021-04-24] MEDS ORDERED: IV RINGERS,LACTATED 500ML 500 ML IV ONE (00:30)
[2021-04-24 00:34] LABS: PROTHROMBIN TIME PATIENT 20.5 SEC (11.7-14.0)
[2021-04-24 00:44] LABS: ALBUMIN 2.4 g/dL (3.4-5.0); DIRECT BILIRUBIN 1.6 mg/dL (0.0-0.2); MAGNESIUM 2.3 mg/dL (1.8-2.4); TOTAL BILIRUBIN 2.5 mg/dL (0.2-1.0); TOTAL PROTEIN 4.8 g/dL (6.4-8.2)
[2021-04-24 01:32] LABS: % BANDS 7 % (0-9); % EOS 1 % (0-5); % LYMPHS 4 % (24-48); % MONOS 1 % (0-10); % SEGS 87 % (35-66); PLT ESTIMATE DECREASED (ADEQUATE); TOXIC GRANULATION SLIGHT
[2021-04-24] MEDS ORDERED: CALCIUM CHLORIDE 1,000 MG in IV NORMAL SALINE 100ML 100 ML IV ONE ×2 (02:15→23:45)
[2021-04-24] MEDS: IV DEXTROSE 5% 1,000 ML IV SCH ×2 (02:47→21:30)
[2021-04-24 06:43] LABS: ALBUMIN 2.3 g/dL (3.4-5.0); DIRECT BILIRUBIN 1.5 mg/dL (0.0-0.2); MAGNESIUM 2.3 mg/dL (1.8-2.4); TOTAL BILIRUBIN 2.3 mg/dL (0.2-1.0); TOTAL PROTEIN 4.7 g/dL (6.4-8.2)
[2021-04-24 06:46] LABS: BASO % 0 % (0-3); EOS % 0 % (0-3); HEMATOCRIT 34.2 % (39.0-53.0); HEMOGLOBIN 11.4 g/dL (13.0-17.5); LYMPH # 0.3 x10^3/uL (1.0-4.8); LYMPH % 4 % (24-48); MEAN CORPUSCULAR HEMOGLOBIN 30 pg (25-35); MEAN CORPUSCULAR HGB CONC 33 g/dL (31-37); MEAN CORPUSCULAR VOLUME 89 fL (79-100); MONO # 0.2 x10^3/uL (0.0-1.1); MONO % 3 % (0-9); NEUT % 92 % (31-73); PLATELET COUNT 49 x10^3/uL (140-400); RED BLOOD COUNT 3.82 x10^6/uL (4.30-5.70); RED CELL DISTRIBUTION WIDTH 14.6 % (11.5-14.5); WHITE BLOOD COUNT 7.6 x10^3/uL (4.0-11.0)
[2021-04-24 06:59] LABS: PROTHROMBIN TIME PATIENT 18.8 SEC (11.7-14.0)
[2021-04-24] MEDS ORDERED: NORMAL SALINE IV SCH (08:30)
[2021-04-24] MEDS ORDERED: POTASSIUM PHOS M BASIC D BASIC IV SCH (08:30)
--- NOTE | 2021-04-24 08:51 | RAD ---
XR CHEST 1V History: Organ donor Comparison: 04/23/2021 Technique: Portable AP chest radiograph. FINDINGS/ IMPRESSION: Tubes and lines: Endotracheal tube projects 3 cm above the jeff. 2. Right internal jugular central venous catheters with tips projecting at the high right atrium. Gas tric tube tip projects in the left upper quadrant over the expected region of the stomach. Lungs and pleura: No pleural effusion or pneumothorax. New retrocardiac strandy opacities likely repr esent atelectasis. Cardiac silhouette and pulmonary vasculature: Normal heart size. Pulmonary vasculature is within norm al limits. Osseous structures and other: Unremarkable. Electronically signed by: Clark Crook MD (04/24/2021 8:49 AM) [id number]
[2021-04-24] MEDS ORDERED: ALBUMIN HUMAN 5% 250 ML IV ONE ×3 (09:00→20:30)
--- NOTE | 2021-04-24 11:35 | CARD ---
MR#: [id number] Date of Study: 04/24/2021 Ordering Physician: CRAB ORCHARD JAIME, [facility] Phys[facility] Nikolay SANDOVAL: Jessica Vasquez RDCS APPROVED REPORT EXAM: Two-dimensional and M-mode echocardiogram with Doppler and color Doppler. Other Information Quality : AverageHR: 74bpm Rhythm : NSR INDICATION RISK FACTORS Hypertension 2D DIMENSIONS RVDd4.0 (2.9-3.5cm)Left Atrium(2D)2.6 (1.6-4.0cm) IVSd1.5 (0.7-1.1cm)Aortic Root(2D)3.7 (2.0-3.7cm) LVDd4.4 (3.9-5.9cm)LVOT Diameter2.7 (1.8-2.4cm) PWd1.3 (0.7-1.1cm)LVDs3.1 (2.5-4.0cm) FS (%) 28.3 %SV47.7 ml LVEF(%)54.9 (>50%) Aortic Valve AoV Peak Ang.128.7cm/sAoV VTI25.0cm AO Peak GR.6.6mmHgLVOT Peak Ang.103.4cm/s AO Mean GR.4mmHgAVA (VMAX)4.52cm2 Mitral Valve MV E Govaooiv22.0cm/sMV DECEL UOHM251yb MV A Xhskzbzu82.5cm/sE/A Ratio1.3 Pulmonary Valve PV Peak Zlobgbtr47.7cm/s LEFT VENTRICLE The left ventricle is normal size. There is mild to moderate concentric left ventricular hypertrophy. The left ventricular systolic function is normal. Estimated ejection fraction 60%. There is normal LV segmental wall motion. The left ventricular diastolic function and filling is normal for age. RIGHT VENTRICLE The right ventricle is normal size. There is normal right ventricular wall thickness. The right ventr icular systolic function is normal. ATRIA The left atrium size is normal. The right atrium size is normal. The interatrial septum is intact wit h no evidence for an atrial septal defect or patent foramen ovale as noted on 2-D or Doppler imaging. AORTIC VALVE The aortic valve is normal in structure and function. Doppler and Color Flow revealed no significant aortic regurgitation. There is no significant aortic valvular stenosis. MITRAL VALVE The mitral valve is normal in structure and function. There is no evidence of mitral valve prolapse. There is no mitral valve stenosis. Doppler and Color Flow revealed no mitral valve regurgitation note d. TRICUSPID VALVE The tricuspid valve is normal in structure and function. Doppler and Color Flow revealed no tricuspid valve regurgitation noted. There is no tricuspid valve stenosis. PULMONIC VALVE The pulmonary valve is normal in structure and function. Doppler and Color Flow revealed mild pulmoni c valvular regurgitation. GREAT VESSELS The aortic root is mildly enlarged. The ascending aorta is normal in size. The IVC is normal in size and collapses <50% with inspiration. PERICARDIAL EFFUSION There is no evidence of significant pericardial effusion. Critical Notification Critical Value: No <Conclusion> The left ventricular systolic function is normal. Estimated ejection fraction 60%. There is normal LV segmental wall motion. There is no evidence of significant pericardial effusion. Signed by : Gab Dobbs, Electronically Approved : 04/24/2021 11:34:55
[2021-04-24] MEDS ORDERED: DIALYSIS PATIENT. MC PRN (12:30)
[2021-04-24 12:33] LABS: BASO % 0 % (0-3); EOS % 0 % (0-3); HEMOGLOBIN 10.3 g/dL (13.0-17.5); LYMPH # 0.3 x10^3/uL (1.0-4.8); LYMPH % 7 % (24-48); MEAN CORPUSCULAR HEMOGLOBIN 30 pg (25-35); MEAN CORPUSCULAR HGB CONC 33 g/dL (31-37); MEAN CORPUSCULAR VOLUME 89 fL (79-100); MONO # 0.4 x10^3/uL (0.0-1.1); MONO % 9 % (0-9); NEUT # 4.3 x10^3/uL (1.8-7.7); NEUT % 85 % (31-73); PLATELET COUNT 54 x10^3/uL (140-400); RED BLOOD COUNT 3.47 x10^6/uL (4.30-5.70); RED CELL DISTRIBUTION WIDTH 14.5 % (11.5-14.5)
[2021-04-24 12:42] LABS: PROTHROMBIN TIME PATIENT 18.1 SEC (11.7-14.0)
[2021-04-24 12:49] LABS: ALBUMIN 2.2 g/dL (3.4-5.0); DIRECT BILIRUBIN 1.5 mg/dL (0.0-0.2); MAGNESIUM 2.2 mg/dL (1.8-2.4); TOTAL BILIRUBIN 2.2 mg/dL (0.2-1.0); TOTAL PROTEIN 4.1 g/dL (6.4-8.2)
[2021-04-24] MEDS: IV NORMAL SALINE 1000ML BAG 1,000 ML IV SCH ×2 (13:44→23:56)
[2021-04-24] MEDS: POTASSIUM PHOS,M-BASIC-D-BASIC 15 MMOL in IV NORMAL SALINE 100ML 100 ML IV SCH ×2 (14:33→15:50)
[2021-04-24 17:57] LABS: BASO % 0 % (0-3); EOS % 0 % (0-3); HEMOGLOBIN 10.3 g/dL (13.0-17.5); LYMPH # 0.3 x10^3/uL (1.0-4.8); LYMPH % 4 % (24-48); MEAN CORPUSCULAR HEMOGLOBIN 30 pg (25-35); MEAN CORPUSCULAR HGB CONC 33 g/dL (31-37); MEAN CORPUSCULAR VOLUME 89 fL (79-100); MONO # 0.8 x10^3/uL (0.0-1.1); MONO % 12 % (0-9); NEUT % 84 % (31-73); PLATELET COUNT 55 x10^3/uL (140-400); RED CELL DISTRIBUTION WIDTH 14.2 % (11.5-14.5); WHITE BLOOD COUNT 7.1 x10^3/uL (4.0-11.0)
[2021-04-24 18:08] LABS: PROTHROMBIN TIME PATIENT 16.5 SEC (11.7-14.0)
[2021-04-24 18:19] LABS: ALBUMIN 2.4 g/dL (3.4-5.0); DIRECT BILIRUBIN 2.1 mg/dL (0.0-0.2); MAGNESIUM 1.8 mg/dL (1.8-2.4); TOTAL BILIRUBIN 3.1 mg/dL (0.2-1.0); TOTAL PROTEIN 4.8 g/dL (6.4-8.2)
[2021-04-24 19:32] LABS: BILIRUBIN,URINE SMALL (NEG); CLARITY,URINE CLEAR; COLOR,URINE ORANGE; NITRITE,URINE POSITIVE (NEG); PH,URINE 5.5 (<5.0-8.0); PROTEIN,URINE 30 mg/dL (NEG-TRACE); UROBILINOGEN,URINE 0.2 mg/dL (0.2 mg/dL)
[2021-04-24 19:39] LABS: BACTERIA,URINE MOD /HPF (0-FEW); HYALINE CASTS, URINE FEW /HPF; WBC,URINE 20-40 /HPF (0-4)
[2021-04-24 19:40] LABS: RBC,URINE 0 /HPF (0-2)
--- NOTE | 2021-04-24 23:26 | RAD ---
Exam: CT of chest, abdomen and pelvis without contrast INDICATION: MTN patient TECHNIQUE: Sequential axial images through the chest, abdomen and pelvis obtained without IV contrast . Sagittal and coronal reformatted images were reconstructed from the axial data and reviewed. Exposure: One or more of the following in the visualized dose reduction techniques were utilized for this examination: 1. Automated exposure control 2. Adjustment of the MA and/or KV according to patient size 3. Use of iterative of reconstructive technique Comparisons: None FINDINGS: Visualized portions of the thyroid are unremarkable. No enlarged mediastinal lymph nodes are identifi ed. Heart size is normal. No pericardial effusion. Thoracic aorta has a normal course and caliber. Pulmon yaneli artery is not enlarged. Patchy consolidative changes noted in the lungs bilaterally greatest in the left upper lobe. Endotrac heal tube noted in the trachea. Airways are patent. No pneumothorax. No suspicious lung nodules are i dentified. No pleural effusion or thickening. Liver, Spleen, pancreas, gallbladder and adrenals are unremarkable. No perinephric inflammation or hydronephrosis. No renal or ureteral calculi are identified. Bladder is decompressed not well evaluated. Prostate is not enlarged. Hebert balloon is noted in the b ladder. Large and small bowel are unremarkable. Rectal temperature probe is noted. Appendix is nonidentified. No free intra-abdominal air or fluid. No obstruction. There is an enteric tube with tip in the stoma ch. Abdominal aorta has a normal course and caliber. No enlarged intra-abdominal lymph nodes are identified. No suspicious osseous lesions or acute fractures. IMPRESSION: 1. Patchy consolidative changes in the lungs bilaterally greater in the left upper lobe favored to b e infectious or inflammatory in etiology. 2. Unremarkable evaluation of the abdomen and pelvis. Electronically signed by: Luana Ceja MD (04/24/2021 11:24 PM) [facility]
[2021-04-25 00:19] LABS: BASO % 0 % (0-3); EOS % 0 % (0-3); HEMATOCRIT 29.5 % (39.0-53.0); HEMOGLOBIN 9.8 g/dL (13.0-17.5); LYMPH # 0.2 x10^3/uL (1.0-4.8); LYMPH % 3 % (24-48); MEAN CORPUSCULAR HEMOGLOBIN 30 pg (25-35); MEAN CORPUSCULAR HGB CONC 33 g/dL (31-37); MEAN CORPUSCULAR VOLUME 89 fL (79-100); MONO # 1.1 x10^3/uL (0.0-1.1); MONO % 13 % (0-9); NEUT # 7.2 x10^3/uL (1.8-7.7); NEUT % 85 % (31-73); PLATELET COUNT 59 x10^3/uL (140-400); RED CELL DISTRIBUTION WIDTH 14.3 % (11.5-14.5); WHITE BLOOD COUNT 8.5 x10^3/uL (4.0-11.0)
[2021-04-25 00:30] LABS: PROTHROMBIN TIME PATIENT 16.5 SEC (11.7-14.0)
[2021-04-25 00:41] LABS: ALBUMIN 2.5 g/dL (3.4-5.0); DIRECT BILIRUBIN 2.2 mg/dL (0.0-0.2); MAGNESIUM 1.8 mg/dL (1.8-2.4); TOTAL BILIRUBIN 3.2 mg/dL (0.2-1.0); TOTAL PROTEIN 4.8 g/dL (6.4-8.2)
[2021-04-25] MEDS: PIPERACILLIN/TAZOBACTAM 3.375 GM in IV NORMAL SALINE 50ML 50 ML IV SCH ×4 (01:56→17:28)
--- NOTE | 2021-04-25 03:47 | RAD ---
XR CHEST 1V 04/24/2021 7:23 PM INDICATION: Hypertension COMPARISON: 04/24/2021 TECHNIQUE: Portable frontal view of the chest is provided. FINDINGS/ IMPRESSION: Endotracheal tube, nasogastric tube and 2 right IJ central venous catheter is in similar position. The cardiomediastinal silhouette is similar in appearance. Increased left suprahilar interstitial air space disease. There are no significant pleural effusions. There is no pulmonary vascular congestion. No pneumothora x. No suspicious osseous abnormality. Electronically signed by: Arabella Santana MD (04/25/2021 3:45 AM) [facility]
[2021-04-25] MEDS ORDERED: PIPERACILLIN/TAZOBACTAM 3.375 GM in IV NORMAL SALINE 50ML 50 ML IV SCH (06:00)
[2021-04-25 06:13] LABS: BASO % 0 % (0-3); EOS % 0 % (0-3); HEMATOCRIT 28.7 % (39.0-53.0); HEMOGLOBIN 9.7 g/dL (13.0-17.5); LYMPH # 0.3 x10^3/uL (1.0-4.8); LYMPH % 3 % (24-48); MEAN CORPUSCULAR HEMOGLOBIN 30 pg (25-35); MEAN CORPUSCULAR HGB CONC 34 g/dL (31-37); MEAN CORPUSCULAR VOLUME 89 fL (79-100); MONO # 1.3 x10^3/uL (0.0-1.1); MONO % 13 % (0-9); NEUT % 84 % (31-73); PLATELET COUNT 58 x10^3/uL (140-400); RED BLOOD COUNT 3.25 x10^6/uL (4.30-5.70); RED CELL DISTRIBUTION WIDTH 14.2 % (11.5-14.5); WHITE BLOOD COUNT 9.6 x10^3/uL (4.0-11.0)
[2021-04-25 06:22] LABS: PROTHROMBIN TIME PATIENT 16.6 SEC (11.7-14.0)
--- NOTE | 2021-04-25 06:37 | RAD ---
XR CHEST 1V 04/25/2021 6:10 AM INDICATION: Mid breast transplant patient COMPARISON: 04/24/2021 TECHNIQUE: Portable frontal view of the chest is provided. FINDINGS: The cardiomediastinal silhouette is similar in appearance. Left suprahilar reticular interstitial mary nges appears similar. Endotracheal tube, nasogastric tube and right IJ central venous catheters are i n similar position. There are no significant pleural effusions. No pneumothorax. No suspicious osseous abnormality. IMPRESSION: Aeration of the lungs appears similar to the prior examination. Support lines and tubes are in simila r position. Electronically signed by: Arabella Santana MD (04/25/2021 6:34 AM) [facility]
[2021-04-25 06:53] LABS: ALBUMIN 2.4 g/dL (3.4-5.0); DIRECT BILIRUBIN 2.6 mg/dL (0.0-0.2); MAGNESIUM 1.9 mg/dL (1.8-2.4); TOTAL BILIRUBIN 3.5 mg/dL (0.2-1.0); TOTAL PROTEIN 4.4 g/dL (6.4-8.2)
--- NOTE | 2021-04-25 07:12 | EKG ---
[facility] [address] [place] [address] Test Date: 2021-04-24 Test Time: 08:56:49 Pat Name: EMILE PEREZ Department: Room: 107 1 Gender: M Chart Writer: : 1990 Requested By: [place] [facility] Order Number: [id number] Reading MD: Maykel Taylor Measurements Intervals [place] Rate: 74 P: -41 MA: 148 QRS: 19 QRSD: 84 T: 19 QT: 394 QTc: 438 Interpretive Statements SINUS RHYTHM LOW LIMB LEAD VOLTAGE NO SPECIFIC ECG ABNORMALITIES RI6.01 No previous ECG available for comparison Electronically Signed On 04-30-2021 10:27:19 DRYING ROOM ATTENDANT by Maykel Taylor
[2021-04-25] MEDS: IV DEXTROSE 5% 1,000 ML IV SCH ×2 (07:30→17:30)
[2021-04-25] MEDS: IV NORMAL SALINE 1000ML BAG 1,000 ML IV SCH (08:35)
[2021-04-25] MEDS ORDERED: FUROSEMIDE 20 MG/2 ML VIAL. IVP ONE (09:30)
[2021-04-25] MEDS ORDERED: IODIXANOL 320 MG/ML 100 ML VIAL. ONE (09:42)
[2021-04-25] MEDS ORDERED: HEPARIN for ARTERIAL LINE 1,500 ML ONE (09:43)
[2021-04-25] MEDS ORDERED: IODIXANOL 320 MG/ML 100 ML VIAL. IART ONE (10:00)
[2021-04-25] MEDS ORDERED: CONTRAST GIVEN. MC PRN (10:15)
[2021-04-25] MEDS: IV DEXTROSE 5 %-0.45 % NACL 1,000 ML IV SCH ×2 (11:02→22:01)
[2021-04-25 11:21] LABS: BASO % 0 % (0-3); EOS % 0 % (0-3); HEMATOCRIT 30.5 % (39.0-53.0); HEMOGLOBIN 10.2 g/dL (13.0-17.5); LYMPH # 0.4 x10^3/uL (1.0-4.8); LYMPH % 4 % (24-48); MEAN CORPUSCULAR HEMOGLOBIN 30 pg (25-35); MEAN CORPUSCULAR HGB CONC 34 g/dL (31-37); MEAN CORPUSCULAR VOLUME 90 fL (79-100); MONO # 1.6 x10^3/uL (0.0-1.1); MONO % 16 % (0-9); NEUT # 7.7 x10^3/uL (1.8-7.7); NEUT % 79 % (31-73); PLATELET COUNT 58 x10^3/uL (140-400); RED BLOOD COUNT 3.41 x10^6/uL (4.30-5.70); RED CELL DISTRIBUTION WIDTH 14.3 % (11.5-14.5); WHITE BLOOD COUNT 9.7 x10^3/uL (4.0-11.0)
[2021-04-25 11:32] LABS: PROTHROMBIN TIME PATIENT 16.6 SEC (11.7-14.0)
[2021-04-25 12:01] LABS: ALBUMIN 2.4 g/dL (3.4-5.0); DIRECT BILIRUBIN 2.9 mg/dL (0.0-0.2); MAGNESIUM 1.9 mg/dL (1.8-2.4); TOTAL BILIRUBIN 3.9 mg/dL (0.2-1.0); TOTAL PROTEIN 4.6 g/dL (6.4-8.2)
--- NOTE | 2021-04-25 13:34 | CARD ---
MR#: [id number] Date of Study: 04/25/2021 Ordering Physician: [facility] JA[facility], Referring Physician: [facility] JA[facility] Tech: RT Royal(R) APPROVED REPORT Procedure Selective coronary angiogram. 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 He is now b eing evaluated by the [place] transplant service for possible transplantation. We have been requeste d to perform a coronary angiogram on the patient as part of the transplant evaluation. The patient was brought to the cardiac catheterization lab. The area of the right femoral artery was prepared in the usual manner with Betadine, sterile draping and local anesthetic. An 18-gauge needl e was used to enter the right femoral artery, a wire placed and a 6 Syrian sheath placed over the wir e. A 6 Syrian JL4 diagnostic catheter proved to be too large for engagement of the left system and r eplaced with a JL 3.5 diagnostic catheter. Sequential injections in various views were obtained. A 6 Syrian Armaan right diagnostic catheter was used to engage to the right coronary artery system an d sequential injections in various views were obtained. The catheter was removed from the patient. Of note all catheter exchanges were over a J-wire. Injection of the sheath showed normal placement. The sheath was removed and sealed with an Angio-Seal product. There were no immediate complications . Hemodynamics. Aortic root pressure of 106/74. Coronaries. Left main. The left main was a normal size vessel. It had no lesions. Left anterior descending. The LAD was a moderate size vessel with normal distribution. It had minim al mid disease of 10%. Left circumflex. The left circumflex was a moderate size vessel. It had no lesions. Right coronary artery. The right coronary was a moderate size nondominant vessel. It had no lesions . <Conclusion> Minimal coronary artery disease with a 10% or less lesion in the mid LAD. Signed by : Maykel Taylor MD Electronically Approved : 04/25/2021 13:33:50
[2021-04-25 17:42] LABS: BASO % 0 % (0-3); EOS % 0 % (0-3); HEMATOCRIT 27.5 % (39.0-53.0); HEMOGLOBIN 9.3 g/dL (13.0-17.5); LYMPH # 0.4 x10^3/uL (1.0-4.8); LYMPH % 5 % (24-48); MEAN CORPUSCULAR HEMOGLOBIN 30 pg (25-35); MEAN CORPUSCULAR HGB CONC 34 g/dL (31-37); MEAN CORPUSCULAR VOLUME 89 fL (79-100); MONO # 1.4 x10^3/uL (0.0-1.1); MONO % 15 % (0-9); NEUT # 7.4 x10^3/uL (1.8-7.7); NEUT % 80 % (31-73); PLATELET COUNT 54 x10^3/uL (140-400); RED BLOOD COUNT 3.11 x10^6/uL (4.30-5.70); RED CELL DISTRIBUTION WIDTH 14.3 % (11.5-14.5); WHITE BLOOD COUNT 9.3 x10^3/uL (4.0-11.0)
[2021-04-25 17:53] LABS: PROTHROMBIN TIME PATIENT 16.8 SEC (11.7-14.0)
[2021-04-25 18:00] LABS: ALBUMIN 2.1 g/dL (3.4-5.0); DIRECT BILIRUBIN 3.1 mg/dL (0.0-0.2); TOTAL BILIRUBIN 3.9 mg/dL (0.2-1.0); TOTAL PROTEIN 4.3 g/dL (6.4-8.2)
[2021-04-25] MEDS ORDERED: MAGNESIUM SULFATE 2GM 50 ML IV ONE (19:30)
[2021-04-26] MEDS: PIPERACILLIN/TAZOBACTAM 3.375 GM in IV NORMAL SALINE 50ML 50 ML IV SCH ×4 (00:10→17:53)
[2021-04-26 00:17] LABS: BASO % 0 % (0-3); EOS % 0 % (0-3); HEMATOCRIT 28.5 % (39.0-53.0); HEMOGLOBIN 9.6 g/dL (13.0-17.5); LYMPH # 0.5 x10^3/uL (1.0-4.8); LYMPH % 5 % (24-48); MEAN CORPUSCULAR HEMOGLOBIN 30 pg (25-35); MEAN CORPUSCULAR HGB CONC 34 g/dL (31-37); MEAN CORPUSCULAR VOLUME 89 fL (79-100); MONO # 1.3 x10^3/uL (0.0-1.1); MONO % 14 % (0-9); NEUT # 7.9 x10^3/uL (1.8-7.7); NEUT % 81 % (31-73); PLATELET COUNT 50 x10^3/uL (140-400); RED BLOOD COUNT 3.22 x10^6/uL (4.30-5.70); RED CELL DISTRIBUTION WIDTH 14.4 % (11.5-14.5); WHITE BLOOD COUNT 9.8 x10^3/uL (4.0-11.0)
[2021-04-26 00:26] LABS: PROTHROMBIN TIME PATIENT 16.6 SEC (11.7-14.0)
[2021-04-26 00:51] LABS: MAGNESIUM 2.9 mg/dL (1.8-2.4); PHOSPHORUS 2.5 mg/dL (2.6-4.7); TOTAL BILIRUBIN 3.8 mg/dL (0.2-1.0); TOTAL PROTEIN 4.8 g/dL (6.4-8.2)
[2021-04-26] MEDS ORDERED: POTASSIUM PHOS,M-BASIC-D-BASIC 15 MMOL in IV NORMAL SALINE 100ML 100 ML IV ONE (01:30)
[2021-04-26] MEDS: IV DEXTROSE 5% 1,000 ML IV SCH (03:30)
[2021-04-26 03:37] LABS: ISTAT BE VENOUS 2 mmol/L (0-3); ISTAT HCO3 VEN 26 mmol/L (24-28); ISTAT PCO2 VEN 38 mmHg (41-51); ISTAT PH VEN 7.45 (7.32-7.42); ISTAT PO2 VEN 157 mmHg (20-40); ISTAT SAT O2 VEN 99 %; ISTAT TCO2 VEN 27 mmol/L (21-32)
[2021-04-26 04:13] LABS: BASE EXCESS COOX 2 mmol/L (-3-3); HCO3 COOX 26 mmol/L (21-28); METHEMOGLOBIN 0.8 % (0.0-1.9); OXYHEMOGLOBIN 93.1 %; PCO2 COOX 36 mmHg (35-46); PO2 COOX 74 mmHg (85-108); SAT O2 COOX 94 % (92-99)
[2021-04-26] MEDS ORDERED: ALBUMIN HUMAN 25% 100 ML IV ONE (05:00)
[2021-04-26] MEDS ORDERED: FUROSEMIDE 20 MG/2 ML VIAL. IVP ONE ×2 (06:00→14:15)
[2021-04-26 06:21] LABS: BASO % 0 % (0-3); EOS % 0 % (0-3); HEMATOCRIT 26.4 % (39.0-53.0); HEMOGLOBIN 8.7 g/dL (13.0-17.5); LYMPH # 0.6 x10^3/uL (1.0-4.8); LYMPH % 6 % (24-48); MEAN CORPUSCULAR HEMOGLOBIN 29 pg (25-35); MEAN CORPUSCULAR HGB CONC 33 g/dL (31-37); MEAN CORPUSCULAR VOLUME 89 fL (79-100); MONO # 1.4 x10^3/uL (0.0-1.1); MONO % 15 % (0-9); NEUT # 7.8 x10^3/uL (1.8-7.7); NEUT % 79 % (31-73); PLATELET COUNT 47 x10^3/uL (140-400); RED BLOOD COUNT 2.97 x10^6/uL (4.30-5.70); RED CELL DISTRIBUTION WIDTH 14.3 % (11.5-14.5); WHITE BLOOD COUNT 9.8 x10^3/uL (4.0-11.0)
[2021-04-26 06:46] LABS: ALBUMIN 2.3 g/dL (3.4-5.0); DIRECT BILIRUBIN 2.9 mg/dL (0.0-0.2); MAGNESIUM 2.7 mg/dL (1.8-2.4); PHOSPHORUS 3.3 mg/dL (2.6-4.7); TOTAL BILIRUBIN 3.7 mg/dL (0.2-1.0); TOTAL PROTEIN 4.6 g/dL (6.4-8.2)
[2021-04-26 07:28] LABS: PROTHROMBIN TIME PATIENT 16.4 SEC (11.7-14.0)
--- NOTE | 2021-04-26 08:06 | RAD ---
XR CHEST 1V INDICATION: intubated . COMPARISON STUDY: 04/25/2021. FINDINGS: Life Support Devices: Stable endotracheal tube, enteric tube, right IJ central venous catheter, right IJ dual-lumen catheter. Lungs: Normal lung volume. Stable left perihilar opacities. Pleura: No pleural effusion or pneumothorax. Heart and Mediastinum: Stable cardiomediastinal silhouette and great vessels. IMPRESSION: 1. Stable life support devices. 2. Stable left perihilar opacities. Electronically signed by: David Wu MD (04/26/2021 8:04 AM) [facility]
[2021-04-26] MEDS: POTASSIUM CHLORIDE 20MEQ 100 ML IV SCH ×2 (08:22→09:13)
[2021-04-26] MEDS: IV DEXTROSE 5 %-0.45 % NACL 1,000 ML IV SCH ×2 (08:23→19:47)
[2021-04-26 12:02] LABS: BASO % 0 % (0-3); EOS # 0.1 x10^3/uL (0.0-0.7); EOS % 1 % (0-3); HEMOGLOBIN 8.7 g/dL (13.0-17.5); LYMPH # 0.8 x10^3/uL (1.0-4.8); LYMPH % 7 % (24-48); MEAN CORPUSCULAR HEMOGLOBIN 30 pg (25-35); MEAN CORPUSCULAR HGB CONC 33 g/dL (31-37); MEAN CORPUSCULAR VOLUME 89 fL (79-100); MONO # 1.3 x10^3/uL (0.0-1.1); MONO % 13 % (0-9); NEUT # 8.3 x10^3/uL (1.8-7.7); NEUT % 79 % (31-73); PLATELET COUNT 49 x10^3/uL (140-400); RED BLOOD COUNT 2.94 x10^6/uL (4.30-5.70); RED CELL DISTRIBUTION WIDTH 14.8 % (11.5-14.5); WHITE BLOOD COUNT 10.6 x10^3/uL (4.0-11.0)
[2021-04-26 12:25] LABS: ALBUMIN 2.2 g/dL (3.4-5.0); DIRECT BILIRUBIN 2.8 mg/dL (0.0-0.2); MAGNESIUM 2.7 mg/dL (1.8-2.4); PHOSPHORUS 2.9 mg/dL (2.6-4.7); TOTAL BILIRUBIN 3.6 mg/dL (0.2-1.0); TOTAL PROTEIN 4.4 g/dL (6.4-8.2)
[2021-04-26 13:28] LABS: PROTHROMBIN TIME PATIENT 16.3 SEC (11.7-14.0)
[2021-04-26] MEDS ORDERED: POTASSIUM CHLORIDE 20MEQ 100 ML IV ONE ×2 (14:15→19:45)
[2021-04-26 18:08] LABS: BASO % 0 % (0-3); EOS # 0.2 x10^3/uL (0.0-0.7); EOS % 2 % (0-3); HEMATOCRIT 25.4 % (39.0-53.0); HEMOGLOBIN 8.6 g/dL (13.0-17.5); LYMPH # 0.8 x10^3/uL (1.0-4.8); LYMPH % 7 % (24-48); MEAN CORPUSCULAR HEMOGLOBIN 30 pg (25-35); MEAN CORPUSCULAR HGB CONC 34 g/dL (31-37); MEAN CORPUSCULAR VOLUME 88 fL (79-100); MONO # 1.3 x10^3/uL (0.0-1.1); MONO % 12 % (0-9); NEUT # 8.7 x10^3/uL (1.8-7.7); NEUT % 79 % (31-73); PLATELET COUNT 51 x10^3/uL (140-400); RED BLOOD COUNT 2.89 x10^6/uL (4.30-5.70); RED CELL DISTRIBUTION WIDTH 14.7 % (11.5-14.5); WHITE BLOOD COUNT 11.1 x10^3/uL (4.0-11.0)
[2021-04-26 18:19] LABS: PROTHROMBIN TIME PATIENT 16.6 SEC (11.7-14.0)
[2021-04-26 20:25] LABS: ALBUMIN 2.1 g/dL (3.4-5.0); DIRECT BILIRUBIN 2.6 mg/dL (0.0-0.2); MAGNESIUM 2.6 mg/dL (1.8-2.4); TOTAL BILIRUBIN 3.3 mg/dL (0.2-1.0); TOTAL PROTEIN 4.4 g/dL (6.4-8.2)
[2021-04-26 21:55] LABS: BILIRUBIN,URINE NEGATIVE (NEG); CLARITY,URINE CLEAR; COLOR,URINE YELLOW; NITRITE,URINE NEGATIVE (NEG); PROTEIN,URINE 100 mg/dL (NEG-TRACE); UROBILINOGEN,URINE 0.2 mg/dL (0.2 mg/dL)
[2021-04-26 22:03] LABS: AMORPHOUS SEDIMENT,UR PRESENT /HPF; BACTERIA,URINE 0 /HPF (0-FEW); RBC,URINE RARE /HPF (0-2)
[2021-04-26 22:04] LABS: GRANULAR CASTS,URINE FEW /HPF
--- NOTE | 2021-04-26 23:58 | NUR ---
Patient left floor to go to OR with [facility], Respiratory nurse, and OR team. Belongings went with family at 2300 on 04/25 and paperwork went with OR team.
[2021-04-27] MEDS: PIPERACILLIN/TAZOBACTAM 3.375 GM in IV NORMAL SALINE 50ML 50 ML IV SCH
[2021-04-27] MEDS ORDERED: ROCURONIUM 50 MG/5 ML VIAL. ONE (00:16)
[2021-04-27] MEDS ORDERED: PHENYLEPHRINE in 0.9% NACL PF 1 MG/10 ML SYRINGE. IV ONE (01:12)
[2021-04-27] MEDS: IV DEXTROSE 5 %-0.45 % NACL 1,000 ML IV SCH (03:00)
== END 2021-04-27 03:50 | DRG 287 ==
LOC: 1 WEST ICU 15:10 → OPS 15:10 → EDSTATUS 20:43
PROVIDERS: ADMIT Surgery; ATTEND Surgery
PROC: 4A023N7 Measurement of Cardiac Sampling and Pressure, Left Heart, Percutaneous Approach (ICD-10-PCS; principal; 2021-04-23)
PROC: B2151ZZ Fluoroscopy of Left Heart using Low Osmolar Contrast (ICD-10-PCS; 2021-04-23)
PROC: B2111ZZ Fluoroscopy of Multiple Coronary Arteries using Low Osmolar Contrast (ICD-10-PCS; 2021-04-23)
DX: R07.89 Other chest pain (principal); Z20.822 Contact with and (suspected) exposure to COVID-19; Z79.899 Other long term (current) drug therapy
CPT/HCPCS: 93454; G0269; 36415; 36600; 71045; 71250; 74176; 80076; 81001; 82150; 82550; 82803; 82805; 82962; 82977; 83036; 83615; 83690; 83735; 84100; 84436; 84443; 84484; 85007; 85025; 85305; 85379; 85384; 85610; 85730; 86850; 86900; 86901; 87040; 87070; 87077; 87086; 87186; 87205; 87340; 87426; 88307; 88313; 88331; 93005; 93306; 94003; 94660; A4222; A4556; A6255; A6257; C1894; J0282; J1644; J1940; J2370; J2543; J3475; J3480; J3490; J7030; J7040; J7042; J7060; J7120; P9041; P9046; Q9967; G0378